=== PATIENT | male | born 1960 | race Caucasian/White ===

== ENCOUNTER → 2018-05-22 | Outpatient (CLI) | payer BC ==
--- NOTE | 2018-05-24 13:23 | PE ---
EXAMINATION TYPE: PET CT fusion skull to thigh DATE OF EXAM: 05/22/2018 COMPARISON: None Prior PET/CT: None HISTORY: R 91.8, solitary pulmonary nodule left lung TECHNIQUE: Following the intravenous administration of 13.3 mCi of F-18 FDG, whole body images are p erformed from the skull base to the midthigh. Images are reviewed on the computer in the coronal, ax ial, and sagittal planes. Reconstructed rotating images are created on independent workstation and r eviewed on the computer. A localization and attenuation correction CT is performed in conjunction w ith the PET scan. DLP: 387.22 mGycm SCAN: Initial Blood glucose: 106 mg/dL Average Mediastinum SUV: 1.37 Average Liver SUV: 1.80 FINDINGS: NECK: No abnormal uptake. THORAX: There is a focus of radiotracer accumulation in the left infrahilar region. This has an SUV v alue of 8.83 compatible with neoplasm. The soft tissue type density which extends from the left infrahilar region to the posterior lateral l eft lung base does not have elevated SUV values and may be related atelectasis. Small nodules identif ied at the right lung base do not have abnormal uptake and are in the range of 0.3-0.6 SUV values. ABDOMEN: No abnormal uptake PELVIS: There is a focus of radiotracer accumulation in the right iliac chain region adjacent to the psoas muscle. This is felt to be related to urinary tract. PET image 197 Solitary metastasis would be unusual. Some uptake more anterior appears to be related to the ileocecal valve. OSSEOUS STRUCTURES: No abnormal uptake LOCALIZATION CT: Ascending thoracic aorta at the level the main pulmonary artery is 3.5 cm. The main pulmonary artery the bifurcation is 2.9 cm. There is a left infrahilar mass just posterior to the rig ht atrium adjacent to the aorta. This area is estimated to measure 4.3 cm in diameter. There is exten shireen towards the left posterior base of increased density. There is a 0.7 cm nodular density in the p eriphery of the right lower lung field. Series 3 image 113. There is a 0.7 cm nodule in the periphery of the right lower lobe. Series 3 image 107. Coronary artery calcification is noted. There is a punc ross calcification along the right diaphragm may be within the superior right lobe liver. COMPARISON: Chest x-ray 05/12/2018 is reviewed. IMPRESSION: 1. Marked increased uptake within a retrocardiac infrahilar mass compatible with neoplasm. 2. Additional suspicious areas of uptake are not identified to suggest metastatic disease. 3. Scattered small pulmonary nodules which may be inflammatory or potentially below the threshold for detectability. Monitoring is recommended. 4. Probable radiotracer within the distal left ureter. Solitary metastatic lesion would be considered less likely. This could be monitored.
== END | disposition home or self-care (01) ==
LOC: RADPETMAIN 09:51
PROVIDERS: ATTEND Internal Medicine
DX: R91.8 Other nonspecific abnormal finding of lung field (principal)
CPT/HCPCS: 78815; A9552

== ENCOUNTER → 2018-05-27 | Outpatient (CLI) | payer BC ==
[2018-05-27 14:51] LABS: Basophils # (A) 0.1 k/uL (0-0.2); Basophils % (A) 1 %; Eosinophils # (A) 0.4 k/uL (0-0.7); Eosinophils % (A) 4 %; HCT 42.4 % (39.0-53.0); HGB 13.6 gm/dL (13.0-17.5); Lymphocytes # (A) 2.1 k/uL (1.0-4.8); Lymphocytes % (A) 19 %; MCH 30.2 pg (25.0-35.0); MCHC 32.2 g/dL (31.0-37.0); MCV 93.7 fL (80.0-100.0); Mean Platelet Volume 7.4; Monocytes # (A) 0.5 k/uL (0-1.0); Monocytes % (A) 4 %; Neutrophils # (A) 7.7 k/uL (1.3-7.7); Neutrophils % (A) 71 %; Platelet Count 331 k/uL (150-450); RBC 4.52 m/uL (4.30-5.90); RDW 13.4 % (11.5-15.5); WBC 10.8 k/uL (3.8-10.6)
[2018-05-27 15:02] LABS: INR 0.9 (<1.2); Prothrombin Time 10.2 sec (9.0-12.0)
[2018-05-27 15:03] LABS: Partial Thromboplastin Time 29.1 sec (22.0-30.0)
[2018-05-27 15:08] LABS: Anion Gap 11 mmol/L; Blood Urea Nitrogen 15 mg/dL (9-20); Carbon Dioxide 28 mmol/L (22-30); Chloride 104 mmol/L (98-107); Glucose 93 mg/dL (74-99); Potassium 4.8 mmol/L (3.5-5.1); Sodium 143 mmol/L (137-145)
== END | disposition home or self-care (01) ==
LOC: LABPAT 14:14
PROVIDERS: ATTEND Thoracic Surgery (Cardiothoracic Vascular Surgery)
DX: Z01.812 Encounter for preprocedural laboratory examination (principal); R91.8 Other nonspecific abnormal finding of lung field
CPT/HCPCS: 36415; 80051; 82565; 82947; 83735; 84520; 85025; 85610; 85730

== ENCOUNTER 2018-06-03 06:52 | Inpatient (IN) | payer BC ==
[~2018-06-03 06:52] MED LIST: DEXAMETHASONE SOD PHOSPHATE 10 MG/ML 1 ML VIAL IV ONE; HYDROmorphone 0.5 MG/0.5 ML SYRINGE IVP PRN; LACTATED RINGERS 1,000 ML IV SCH; MIDAZOLAM 2 MG/2 ML VIAL IV PRN; ONDANSETRON 4 MG/2 ML VIAL IVP ONE; SCOPOLAMINE 1.5MG/72HR PATCH TRANSDERM ONE; ceFAZolin IN SWFI 2 GM/20 ML SYRINGE IVP ONE
[2018-06-03] MEDS ORDERED: fentaNYL (PF) 50 MCG/ML 2 ML AMP IV ONE (08:06)
[2018-06-03] MEDS ORDERED: MIDAZOLAM 2 MG/2 ML VIAL IV ONE ×2 (08:06→08:37)
[2018-06-03] MEDS ORDERED: NALOXONE 0.4 MG/ML 1 ML VIAL IV PRN (08:29)
[2018-06-03] MEDS ORDERED: SODIUM CHLORIDE 0.9% 500 ML 500 ML IV ONE ×2 (08:45→12:45)
--- NOTE | 2018-06-03 08:45 | P.CON ---
Consult Note - . Consult date: 06/03/18 Assessment/Plan:: This is an addendum to the office consultation and subsequent H&P developed on this patient. It in the history of present illness it was documented that there was a left lower lobe mass abutting the inferior pulmonary vein. That is correct. In the summary stated it was a right lower lobe. This is incorrect. It is the left lower lobe. A left lower lobectomy's plan.
[2018-06-03] MEDS ORDERED: GLYCOPYRROLATE 0.2 MG/ML 2 ML VIAL ONE (09:05)
[2018-06-03] MEDS ORDERED: PROPOFOL 10 MG/ML 20 ML VIAL IV ONE (09:05)
[2018-06-03] MEDS ORDERED: VECURONIUM 10 MG VIAL IV ONE (09:05)
[2018-06-03] MEDS ORDERED: ALBUMIN HUMAN 5% (12.5gm) 250 ML BOTTLE IVPB ONE (09:05)
[2018-06-03] MEDS ORDERED: MIDAZOLAM 2 MG/2 ML VIAL ONE (09:05)
[2018-06-03] MEDS ORDERED: fentaNYL (PF) 50 MCG/ML 2 ML AMP ONE (09:05)
[2018-06-03] MEDS ORDERED: SUCCINYLCHOLINE CHLORIDE 100 MG/5 ML SYR IV ONE (09:05)
[2018-06-03] MEDS ORDERED: NEOSTIGMINE 1 MG/ML 10 ML VIAL ONE (09:05)
[2018-06-03] MEDS ORDERED: AMIODARONE 150 MG Bolus IV ONE ×2 (11:45)
[2018-06-03] MEDS ORDERED: AMIODARONE 360 MG in DEXTROSE 5% IN WATER 200 ML IV ONE ×2 (12:45)
--- NOTE | 2018-06-03 13:59 | P.OP ---
Date of Procedure: 06/03/18 Preoperative Diagnosis: Lung cancer left lower lobe of lung Postoperative Diagnosis: Same Procedure(s) Performed: Left thoracotomy, left lower lobectomy, mediastinal lymph node dissection, resection of left atrium at insertion of left inferior pulmonary vein, cryoablation of left intercostal nerves 3, 4, 5, 6, 7. Anesthesia: GETA Surgeon: Patrick Zuluaga Financial Administrative Assistant #1: Jayson Zuñiga Financial Administrative Assistant #2: Guille Yang Estimated Blood Loss (ml): 500 IV fluids (ml): 2,000 Urine output (ml): 500 Pathology: other (Left upper lobectomy with markers indicating areas of dissection from one descending thoracic aorta to esophagus 3 left superior pulmonary vein for left inferior pulmonary vein, left atrial resection labeled for proximal margin, lymph nodes from stations L5, L6, level7, L10, L11) Condition: stable Disposition: ICU Indications for Procedure: 58-year-old male who presents with a 4-1/2 cm large central tumor at the inferior pulmonary vein abutting and possibly invading the aorta and esophagus, exploration and resection was recommended Operative Findings: The tumor was large and fixed to the mediastinum centrally. Our initial dissection confirmed ability to resect the mass off both the aorta and the esophagus. There was a markedly inflammatory response in the hilum and dissection was very difficult. The hilar and mediastinal lymph nodes were enlarged and appeared to be granulomatous in gross appearance. Once we got to the pulmonary vein, the superior pulmonary vein was attached at its inferior portion to the tumor and the tumor did extend to the junction of the inferior pulmonary vein and the left atrium. Final margins all appeared negative grossly. Description of Procedure: The patient was brought to the operating room, placed supine on the operating table, anesthetized and intubated with a double-lumen endotracheal tube. Tube was positioned and secured with fiberoptic bronchoscopy. Patient had considerable endobronchial sputum however there were no evidence of endobronchial tumor. The tube was positioned and secured and patient turned in the right lateral decubitus position. Left chest sterilely prepped and draped. Posterior lateral thoracotomy incision was performed. This carried down through skin and subcutaneous tissue. The latissimus muscle was divided. The serratus muscle was mobilized and retracted anteriorly. The chest was entered in the fifth interspace. Intercostal muscles were undercut anteriorly and posteriorly to allow good rib spreading. Chest was explored with findings as noted above. We began dissection by being certain that the tumor was not invasive of the aorta. Mediastinal pleura where the tumor was stuck to the aorta was incised circumferentially and we were able to establish a good plane between the pleura and the aorta and free the tumor from the aorta. We then did the same for the esophagus after assuring we had a NG tube in place so we could easily palpate the esophagus. The inferior pulmonary ligament was taken down. As we approached the pericardium and the inferior pulmonary vein the tumor was stuck to the pericardium and we stopped here. The greater fissure was incomplete. We began dissection in the fissure and identified pulmonary artery at the base of the fissure. Fissure was completed posteriorly and dissection was carried along the pulmonary artery at the base of the fissure using electrocautery to divide the pulmonary tissue overlying the pulmonary artery. The branch the pulmonary artery leading to the superior segment of the left lower lobe was encircled and ligated and divided with a Endo CUATE thin stapler. Dissection was carried r further along the pulmonary artery. The branch leading to the lingula was identified. There were 2 large branches to the lower lobe one just proximal to this and one just distal. We first dissected out the distal branch and ligated it proximally and distally with 0 silk ties and 3-0 silk stick ties. The branch was then divided. We were now able to get a Endo CUATE vascular stapler around the remaining branch of the pulmonary artery leading to the lower lobe and ligated and divided. We now began dissection on the bronchus. The level VII nodes were resected. The level nodes were resected. Dissection was carried up along the mainstem bronchus to its bifurcation. We were able to encircle the lower lobe bronchus and get around it with a large right angle clamp. We then able to get across it with a Endo CUATE thick stapler and ligated and divided. All of the hilar lymph nodes were generally resected en bloc with the specimen although a few separate ones were sent. These were labeled as L 10 and L 11 lymph nodes. We now opened the pericardium in order to better visualize the inferior pulmonary vein. Superior pulmonary vein was visualized behind the bronchus. The tumor was stuck to the pericardium and portion of pericardium was resected circumferentially around the inferior pulmonary vein Dissection was carried along the superior pulmonary vein down to its junction with the inferior pulmonary vein. It became evident that was going to be challenging to resect the inferior pulmonary vein without compromising the superior pulmonary vein. We began by placing a vascular Endo CUATE stapler across the inferior pulmonary vein including a small amount of the superior pulmonary vein and firing it. His allowed us get the specimen out of the way. Grossly we were right on the margin of the tumor and we wanted a better margin. We could now place a Satinsky clamp across the inferior pulmonary vein and down onto the left atrium including a small portion of the superior pulmonary vein. Should then resect the staple line and get a much deeper margin. This allowed us to do this without compromising the inflow from the superior pulmonary vein. Once we had resected the staple line and a small portion of the left atrium, we felt we had an good gross margin and a running suture was passed back and forth beneath the clamp. Being very careful to put good tension on the suture the clamp was gradually removed and good hemostasis was maintained. The suture was tied and cut. We now resected some further L6 lymph nodes as well as L5 lymph nodes and didn't careful look for any level VIII or 10 lymph nodes which were not encountered. The chest was irrigated with warm water and the lung inflated and no air leaks were noted. Cryoablation of the intercostal nerves posteriorly at levels 3, 4, 5, 6 and 7 was performed with the AtriCure cryo-ice device. The lung was then again reinflated. A 28-Czech tube was placed posterior apically and brought out through a separate stab incision and secured to the skin with 0 Ethibond suture. The ribs were now reapproximated with #1 Vicryl. The muscle layers were closed with 0 Vicryl. Subcutaneous tissue was closed with 2-0 Vicryl. Skin was closed with a running 3-0 Vicryl subcuticular stitch. Skin glue and dry sterile dressings were applied. Patient was turned supine and extubated and transferred to recovery room in stable condition. Dr. Patrick Zuluaga dictating an operative note Alan Aldana. Please forward copy Dr. Klein.
[2018-06-03] MEDS ORDERED: BISACODYL 10 MG SUPP RECTAL PRN (14:04)
[2018-06-03] MEDS ORDERED: DEXTROSE 5%-0.45% NACL 1,000 ML IV SCH (14:04)
[2018-06-03] MEDS ORDERED: METOCLOPRAMIDE 5 MG/ML 2 ML VIAL IVP PRN (14:04)
[2018-06-03] MEDS ORDERED: ONDANSETRON 4 MG/2 ML VIAL IVP PRN (14:04)
[2018-06-03] MEDS ORDERED: IPRATROPIUM-ALBUTEROL 3 ML NEB IH PRN (14:04)
[2018-06-03] MEDS: ROPIVACAINE 400 MG, HYDROMORPHONE (PF) 5 MG in SODIUM CHLORIDE 0.9% 170 ML EPIDURAL PRN (14:08)
[2018-06-03 14:17] LABS: Glucose,Whole Blood 200 mg/dL (75-99)
--- NOTE | 2018-06-03 14:49 | XR ---
EXAMINATION TYPE: XR chest 1V DATE OF EXAM: 06/03/2018 HISTORY: Postoperative left lower lobectomy COMPARISON: 05/12/2018 TECHNIQUE: Single view of the chest is submitted. FINDINGS: Left-sided chest tube is noted in place with the its distal tip within the left upper lobe region. Th ere is subcutaneous air seen along the left chest wall. No sizable pneumothorax present. The right shaun ng is clear. The heart is stable. Hilar and mediastinal structures are within normal limits. Degenerative changes are seen of the dorsal spine. IMPRESSION: 1. Postoperative left lower lobectomy changes.
[2018-06-03] MEDS: ACETAMINOPHEN IV (For NPO) 1,000 MG in EMPTY BAG 1 BAG IVPB SCH (15:25)
[2018-06-03] MEDS: ceFAZolin IN SWFI 2 GM/20 ML SYRINGE IVP SCH (15:25)
--- NOTE | 2018-06-03 15:31 | P.CNPUL ---
History of Present Illness Consult date: 06/03/18 Reason for consult: lung mass History of present illness: This is a 57-year-old white male who was recently seen by his primary care physician for chronic cough, some vague aches and pains in the thoracic spine. CT of the chest showed a left infrahilar mass abutting the cardiac atrium, the mass is 3.6 cm in size. . Patient describes about 15 pound weight loss over the last 2 years, describes chronic cough which is nonproductive, denies any hemoptysis, denies any chest pain, but he does have pain over the thoracic spine which is chronic. At least 3 months in duration. Patient has been a smoker over the years, he is at least a [id number] smoker, and he is now to 10 cigarettes per day. He has a preserved lung capacity with an FEV1 of 75% of predicted. He underwent a PET scan that was done on 05/22/2018 and the PET scan showed marked increased uptake in the infrahilar mass compatible with neoplasm. The patient has a left infrahilar mass which is estimated to be around 4.3 cm in diameter. There is another 7 mm nodular density in the periphery of the right lower lung leahy. This is probably inflammatory in nature. The mass is quite large and is invading the mediastinum, abutting the descending aorta and the posterior heart border and causing problems some mass effect on the esophagus. No reported dysphagia or swallowing difficulties. The patient is having dull aching pain in the left posterior chest area. I referred this patient for CV surgery in consultation for a left lower lobe resection. I was concerned that this is a T4 lesion. I had further discussions with Dr. Zuluaga. Based on discussion, we decided to undergo lobectomy at least give this patient a surgical chance. The surgery was done today. The patient underwent a left thoracotomy, left lower lobectomy, mediastinal lymph node dissection, resection of the left atrium at the insertion of the left inferior pulmonary vein and cryoablation of the left intercostal nerve 3,4,5,6,7.. The estimated blood loss was 500 mL. The patient following that there was brought into the intensive care unit. He was already extubated. The patient had epidural Dilaudid and bupivacaine for pain control. He is on 10 L of oxygen nasal cannula. Pulse ox 95%. Chest x-ray showing left lower lobectomy changes. The patient is a left-sided chest tube in place and there is no evidence of any air leak or pneumothorax. The patient is hemodynamically stable at this point in time. He is on DuoNeb nebulized treatments around the clock. He is on IV antibiotic prophylaxis. He is on heparin subcu for DVT prophylaxis. Review of Systems Comprehensive General Adult ROS Reported by Patient Constitutional Constitutional: no fever, no night sweats, no significant weight gain, no exercise intolerance, weight loss (5 lbs) Eyes Eyes: no dry eyes, no vision change, no irritation ENMT Ears: no difficulty hearing, no ear pain Nose: no frequent nosebleeds, no nose problems, no sinus problems Mouth/Throat: no sore throat, no bleeding gums, no snoring, no dry mouth, no mouth ulcers, no oral abnormalities, no teeth problems Cardiovascular Cardiovascular: no chest pain, no arm pain on exertion, no shortness of breath when lying down, no palpitations, no known heart murmur, shortness of breath when walking Respiratory Respiratory: no cough, no wheezing, no shortness of breath, no coughing up blood , no sleep apnea (chest pain) Gastrointestinal Gastrointestinal: no abdominal pain, no nausea, no vomiting, no constipation, normal appetite, no diarrhea, not vomiting blood, no dyspepsia, no GERD Genitourinary Genitourinary: no incontinence, no difficulty urinating, no hematuria, no increased frequency Musculoskeletal Musculoskeletal: no muscle aches, no muscle weakness, no arthralgias/joint pain , no back pain, no swelling in the extremities Integumentary Skin: no abnormal mole, no jaundice, no rashes, no laceration Neurologic Neurologic: no loss of consciousness, no weakness, no numbness, no seizures, no dizziness, no migraines, no headaches, no tremor Psychiatric Psych: no depression, no sleep disturbances, feeling safe in a relationship, no alcohol abuse, no anxiety, no hallucinations, no suicidal thoughts Endocrine Endocrine: no fatigue Hematologic/Lymphatic Hematologic/Lymphatic no swollen glands, no bruising, no excessive bleeding Allergic/Immunologic Allergy/Immunologic: no runny nose, no sinus pressure, no itching, no hives, no frequent sneezing Past Medical History Past Medical History: Hyperlipidemia Additional Past Medical History / Comment(s): Lung mass, COPD, abnormal weight loss, hypertension, hyperlipidemia History of Any Multi-Drug Resistant Organisms: None Reported Past Surgical History: No Surgical Hx Reported Additional Past Surgical History / Comment(s): wisdom teeth Past Anesthesia/Blood Transfusion Reactions: No Reported Reaction Smoking Status: Current some day smoker - Past Family History Mother Family Medical History: Cancer Additional Family Medical History / Comment(s): appendix cancer Medications and Allergies Home Medications Medication Instructions Recorded Confirmed Type Atorvastatin [Lipitor] 10 mg PO DAILY 05/27/18 06/03/18 History Ibuprofen [Advil] 200 mg PO DAILY PRN 05/27/18 06/03/18 History [place] (Unknown Dose) 1 tab PO DAILY PRN 05/31/18 06/03/18 History Allergies Allergy/AdvReac Type Severity Reaction Status Date / Time No Known Allergies Allergy Verified 06/03/18 14:29 Physical Exam Vitals: Vital Signs Temp Pulse Pulse Resp BP BP BP 06/03/18 15:00 66 24 150/84 06/03/18 14:30 63 18 146/87 06/03/18 14:20 65 22 146/87 06/03/18 14:10 63 12 06/03/18 14:03 97.7 F 62 21 06/03/18 09:00 16 06/03/18 08:29 76 16 109/64 06/03/18 07:28 98.3 F 85 16 173/81 Pulse Ox 06/03/18 15:00 95 06/03/18 14:30 99 06/03/18 14:20 99 06/03/18 14:10 99 06/03/18 14:03 98 06/03/18 09:00 99 06/03/18 08:29 99 06/03/18 07:28 95 Intake and Output 06/03/18 06/03/18 06/03/18 06:59 14:59 22:59 Intake Total 742.267 Output Total 790 Balance -47.733 Intake: IV 740 Dextrose 5%-0.45% NaCl 1, 40 000 ml @ 40 mls/hr IV . Q24H [facility] Rx#:[id number] Intake, IV Titration 2.267 Amount Ropivacaine 400 mg 2.267 Hydromorphone (Pf) 5 mg In Sodium Chloride 0.9% 170 ml @ Per Protocol EPIDURAL .Q0M PRN Rx#: [id number] Output: Chest Tube Drainage 40 Left Pleural 40 Urine 250 Estimated Blood Loss 500 Other: Voiding Method Indwelling Catheter ABP, PAP, CO, CI - Last 8 Hours Arterial Blood Pressure 166/66 Arterial Blood Pressure 151/69 Arterial Blood Pressure 127/57 Patient is laying down comfortably in bed. Nonacute distress.Head exam was generally normal. There was no scleral icterus or corneal arcus. Mucous membranes were moist.Neck was supple and without jugular venous distension, thyromegaly, or carotid bruits. Carotids were easily palpable bilaterally. There was no adenopathy. Lung sounds are diminished in left lung base and the patient is a left-sided chest tube. Surgical wound site is dry clean and intact.Cardiac exam revealed the PMI to be normally situated and sized. The rhythm was regular and no extrasystoles were noted during several minutes of auscultation. The first and second heart sounds were normal and physiologic splitting of the second heart sound was noted. There were no murmurs, rubs, clicks, or gallops.Abdominal exam revealed normal bowel sounds. The abdomen was soft, non-tender, and without masses, organomegaly, or appreciable enlargement of the abdominal aorta.Examination of the extremities revealed easily palpable radial, femoral and pedal pulses. There was no cyanosis, clubbing or edema.Examination of the skin revealed no evidence of significant rashes, suspicious appearing nevi or other concerning lesions. Neurologically awake and alert and there is no focal neurological deficits. Psychiatrically there is no anxiety or depression.Examination of the skin revealed no evidence of significant rashes, suspicious appearing nevi or other concerning lesions. Results - Laboratory Findings Abnormal lab findings: Abnormal Labs 06/03/18 14:06 POC Glucose (mg/dL) 200 H - Diagnostic Findings Chest x-ray: image reviewed Assessment and Plan Plan: Assessment 1 left thoracotomy, left lower lobe resection, resection of the left atrium at the insertion of left inferior pulmonary vein. The patient is postop day #0. Estimated blood loss was 500 mL 2 left lung mass, likely malignant, likely primary bronchogenic cancer 3 COPD mild currently inactive in stable 4 post thoracotomy pain currently on the Dulera bupivacaine and lotted for pain control 5 history of smoking 6 weight loss 7 hypertension 8 hyperlipidemia Plan Provide the patient incentive spirometer. Provide the patient adequate pain control. He is hemodynamically stable. Chest tube is in place and output is minimal at this point in time. Postop chest x-ray was noted and is consistent with postsurgical changes. The patient has adequate pain control. The patient is on heparin subcu for DVT prophylaxis. We'll continue to follow. He'll be kept in ICU overnight
[2018-06-03] MEDS: HEPARIN SODIUM,PORCINE 5,000 UNIT/ML 1 ML VIAL SQ SCH (15:33)
[2018-06-03 16:26] LABS: Basophils % (A) 0 %; Eosinophils # (A) 0.2 k/uL (0-0.7); Eosinophils % (A) 1 %; HGB 11.6 gm/dL (13.0-17.5); Lymphocytes # (A) 0.9 k/uL (1.0-4.8); Lymphocytes % (A) 6 %; MCHC 33.2 g/dL (31.0-37.0); MCV 93.4 fL (80.0-100.0); Mean Platelet Volume 7.1; Monocytes # (A) 0.6 k/uL (0-1.0); Monocytes % (A) 3 %; Neutrophils # (A) 14.5 k/uL (1.3-7.7); Neutrophils % (A) 90 %; Platelet Count 293 k/uL (150-450); RBC 3.75 m/uL (4.30-5.90); RDW 13.4 % (11.5-15.5); WBC 16.2 k/uL (3.8-10.6)
[2018-06-03] MEDS: IPRATROPIUM-ALBUTEROL 3 ML NEB IH SCH ×2 (16:35→19:46)
[2018-06-03 16:36] LABS: Anion Gap 11 mmol/L; Blood Urea Nitrogen 18 mg/dL (9-20); Calcium 9.1 mg/dL (8.4-10.2); Carbon Dioxide 26 mmol/L (22-30); Chloride 100 mmol/L (98-107); Glucose 187 mg/dL (74-99); Potassium 4.4 mmol/L (3.5-5.1); Sodium 137 mmol/L (137-145)
[2018-06-03] MEDS ORDERED: hydrALAZINE HCL 20 MG/ML 1 ML VIAL IVP PRN (17:47)
[2018-06-03] MEDS: KETOROLAC 30 MG/ML 1 ML VIAL IVP SCH ×2 (17:49→23:41)
[2018-06-03] MEDS ORDERED: HYDROmorphone 0.5 MG/0.5 ML SYRINGE IVP STA ×2 (18:06→21:01)
[2018-06-04] MEDS: ACETAMINOPHEN IV (For NPO) 1,000 MG in EMPTY BAG 1 BAG IVPB SCH ×3 (00:49→11:31)
[2018-06-04] MEDS: ceFAZolin IN SWFI 2 GM/20 ML SYRINGE IVP SCH (00:50)
[2018-06-04] MEDS: HEPARIN SODIUM,PORCINE 5,000 UNIT/ML 1 ML VIAL SQ SCH ×3 (00:58→18:20)
[2018-06-04 04:30] LABS: Basophils % (A) 0 %; Eosinophils # (A) 0.3 k/uL (0-0.7); Eosinophils % (A) 2 %; HCT 36.5 % (39.0-53.0); HGB 12.2 gm/dL (13.0-17.5); Lymphocytes # (A) 1.7 k/uL (1.0-4.8); Lymphocytes % (A) 10 %; MCH 31.1 pg (25.0-35.0); MCHC 33.5 g/dL (31.0-37.0); Monocytes # (A) 0.8 k/uL (0-1.0); Monocytes % (A) 4 %; Neutrophils % (A) 83 %; Platelet Count 313 k/uL (150-450); RBC 3.92 m/uL (4.30-5.90); RDW 13.5 % (11.5-15.5)
[2018-06-04 04:52] LABS: Anion Gap 8 mmol/L; Blood Urea Nitrogen 20 mg/dL (9-20); Carbon Dioxide 28 mmol/L (22-30); Chloride 100 mmol/L (98-107); Glucose 134 mg/dL (74-99); Potassium 4.6 mmol/L (3.5-5.1); Sodium 136 mmol/L (137-145)
[2018-06-04] MEDS: KETOROLAC 30 MG/ML 1 ML VIAL IVP SCH ×3 (06:34→18:20)
[2018-06-04] MEDS: METOPROLOL TARTRATE 25 MG TAB PO SCH ×2 (06:56→21:16)
[2018-06-04] MEDS: ATORVASTATIN 10 MG TAB PO SCH (06:56)
[2018-06-04] MEDS: IPRATROPIUM-ALBUTEROL 3 ML NEB IH SCH ×4 (07:59→20:04)
--- NOTE | 2018-06-04 09:52 | XR ---
EXAMINATION TYPE: XR chest 1V DATE OF EXAM: 06/04/2018 COMPARISON: 06/03/2018 HISTORY: Post left lower lobe lobectomy TECHNIQUE: Single frontal view of the chest is obtained. FINDINGS: Left-sided chest tube is noted in place with the its distal tip within the left upper lobe region. There is subcutaneous air seen along the left chest wall. No sizable pneumothorax present. T he right lung is clear. The heart is stable. There is bilateral lower lobe subsegmental consolidation . And mediastinal structures are within normal limits. Degenerative changes are seen of the dorsal sp ine. IMPRESSION: 1. Postoperative changes with subcutaneous emphysema on the left but no sizable pneumothorax. 2. Bilateral lower lobe consolidation may been the basis of postoperative atelectasis correlate clini dayday to exclude infiltrate.
--- NOTE | 2018-06-04 10:19 | P.PN ---
Subjective Progress Note Date: 06/04/18 Principal diagnosis: Left thoracotomy, left lower lobe resection, resection of the left atrium, left lung mass likely malignant, postop day 1 This is a 57-year-old white male who was recently seen by his primary care physician for chronic cough, some vague aches and pains in the thoracic spine. CT of the chest showed a left infrahilar mass abutting the cardiac atrium, the mass is 3.6 cm in size. . Patient describes about 15 pound weight loss over the last 2 years, describes chronic cough which is nonproductive, denies any hemoptysis, denies any chest pain, but he does have pain over the thoracic spine which is chronic. At least 3 months in duration. Patient has been a smoker over the years, he is at least a [id number] smoker, and he is now to 10 cigarettes per day. He has a preserved lung capacity with an FEV1 of 75% of predicted. He underwent a PET scan that was done on 05/22/2018 and the PET scan showed marked increased uptake in the infrahilar mass compatible with neoplasm. The patient has a left infrahilar mass which is estimated to be around 4.3 cm in diameter. There is another 7 mm nodular density in the periphery of the right lower lung leahy. This is probably inflammatory in nature. The mass is quite large and is invading the mediastinum, abutting the descending aorta and the posterior heart border and causing problems some mass effect on the esophagus. No reported dysphagia or swallowing difficulties. The patient is having dull aching pain in the left posterior chest area. I referred this patient for CV surgery in consultation for a left lower lobe resection. I was concerned that this is a T4 lesion. I had further discussions with Dr. Zuluaga. Based on discussion, we decided to undergo lobectomy at least give this patient a surgical chance. The surgery was done today. The patient underwent a left thoracotomy, left lower lobectomy, mediastinal lymph node dissection, resection of the left atrium at the insertion of the left inferior pulmonary vein and cryoablation of the left intercostal nerve 3,4,5,6,7.. The estimated blood loss was 500 mL. The patient following that there was brought into the intensive care unit. He was already extubated. The patient had epidural Dilaudid and bupivacaine for pain control. He is on 10 L of oxygen nasal cannula. Pulse ox 95%. Chest x-ray showing left lower lobectomy changes. The patient is a left-sided chest tube in place and there is no evidence of any air leak or pneumothorax. The patient is hemodynamically stable at this point in time. He is on DuoNeb nebulized treatments around the clock. He is on IV antibiotic prophylaxis. He is on heparin subcu for DVT prophylaxis. On 06/04/2018 patient seen in follow-up in intensive care unit, he is awake and alert, oriented 3, in no acute distress, this is postop day 1 status post left thoracotomy, left lower lobe mass resection, left atrium resection at the level of the insertion of the left pulmonary artery. She has a left-sided chest tube in place, to waterseal, no air leak noted, and there is a total of 430 of serosanguineous output in the Pleur-evac. Drainage from the chest tube is thin and watery, continues to smoke morning. Lung sounds are positive for scattered rhonchi at the left lower lobe, and has effective cough, he is producing moderate to large amount of thick yellow sputum. Incentive spirometer effort is 750 ML today. His chest x-ray has been reviewed with Dr. Klein, showed postoperative changes with subcutaneous emphysema on the left but no sizable pneumothorax, bilateral postoperative atelectasis. Biopsy results are still pending. Today's lab work has been reviewed, white blood cell count of 17.0, hemoglobin is 12.2, sodium is 136, the rest of electrolytes are within normal limits, B1 is 20 and creatinine 0.60. Fluids D5 at a rate of 40 ML per hour, this rhythm on the monitor with a rate of 67, hemodynamic patient is stable. Bupivacaine and Dilaudid at a rate of 10 ML per hour Objective - Vital Signs Vital signs: Vital Signs Temp 97.9 F 06/04/18 04:00 Pulse 70 06/04/18 08:07 Resp 24 06/04/18 07:00 BP 153/90 06/04/18 07:00 Pulse Ox 95 06/04/18 07:00 Intake & Output 06/03/18 06/04/18 06/04/18 18:59 06:59 18:59 Intake Total 924.934 480 40 Output Total 1090 647 35 Balance -165.066 -167 5 Weight 63 kg Intake: IV 900 480 40 Dextrose 5%-0.45% NaCl 1, 200 480 40 000 ml @ 40 mls/hr IV . Q24H [facility] Rx#:[id number] Intake, IV Titration 24.934 Amount Ropivacaine 400 mg 24.934 Hydromorphone (Pf) 5 mg In Sodium Chloride 0.9% 170 ml @ Per Protocol EPIDURAL .Q0M PRN Rx#: [id number] Output: Chest Tube Drainage 140 290 Left Pleural 140 290 Urine 450 357 35 Estimated Blood Loss 500 Other: Voiding Method Indwelling Catheter Indwelling Catheter ABP, PAP, CO, CI - Last Documented Arterial Blood Pressure 162/70 - Exam GENERAL EXAM: Alert, active, comfortable in no apparent distress. HEAD: Normocephalic/atraumatic. EYES: Normal reaction of pupils, equal size. Conjunctiva pink, sclera white. NOSE: Clear with pink turbinates. THROAT: No erythema or exudates. NECK: No masses, no JVD, no thyroid enlargement, no adenopathy. CHEST: No chest wall deformity. Symmetrical expansion. LUNGS: Equal air entry with left basilar rhonchi CVS: Regular rate and rhythm, normal S1 and S2, no gallops, no murmurs, no rubs ABDOMEN: Soft, nontender. No hepatosplenomegaly, normal bowel sounds, no guarding or rigidity. EXTREMITIES: No clubbing, no edema, no cyanosis, 2+ pulses and upper and lower extremities. MUSCULOSKELETAL: Muscle strength and tone normal. SPINE: No scoliosis or deformity SKIN: No rashes CENTRAL NERVOUS SYSTEM: Alert and oriented -3. No focal deficits, tone is normal in all 4 extremities. PSYCHIATRIC: Alert and oriented -3. Appropriate affect. Intact judgment and insight. - Labs CBC & Chem 7: 06/04/18 04:20 06/04/18 04:20 Labs: Abnormal Lab Results - Last 24 Hours (Table) 06/03/18 06/03/18 06/03/18 Range/Units 14:06 16:15 16:15 WBC 16.2 H (3.8-10.6) k/uL RBC 3.75 L (4.30-5.90) m/uL Hgb 11.6 L (13.0-17.5) gm/dL Hct 35.0 L (39.0-53.0) % Neutrophils # 14.5 H (1.3-7.7) k/uL Lymphocytes # 0.9 L (1.0-4.8) k/uL Sodium (137-145) mmol/L Creatinine 0.60 L (0.66-1.25) mg/dL Glucose 187 H (74-99) mg/dL POC Glucose (mg/dL) 200 H (75-99) mg/dL 06/04/18 06/04/18 Range/Units 04:20 04:20 WBC 17.0 H (3.8-10.6) k/uL RBC 3.92 L (4.30-5.90) m/uL Hgb 12.2 L (13.0-17.5) gm/dL Hct 36.5 L (39.0-53.0) % Neutrophils # 14.0 H (1.3-7.7) k/uL Lymphocytes # (1.0-4.8) k/uL Sodium 136 L (137-145) mmol/L Creatinine 0.60 L (0.66-1.25) mg/dL Glucose 134 H (74-99) mg/dL POC Glucose (mg/dL) (75-99) mg/dL Assessment and Plan Plan: 1 left thoracotomy, left lower lobe resection, resection of the left atrium at the insertion of left inferior pulmonary vein. The patient is postop day #1. Estimated blood loss was 750 mL 2 left lung mass, likely malignant, likely primary bronchogenic cancer 3 COPD mild currently inactive in stable 4 post thoracotomy pain currently on the Dulera bupivacaine and lotted for pain control 5 history of smoking 6 weight loss 7 hypertension 8 hyperlipidemia Plan: Continue encouraging deep breathing and coughing, patient's hemodynamically stable, is quite comfortable in regards to pain. Chest x-ray has been reviewed by Dr. Klein, showed postoperative changes with subcutaneous emphysema on the left, bibasilar atelectasis, but no sizable pneumothorax. Encourage ambulation, continue nebulized bronchodilators, sputum for culture. we'll continue to follow I performed a history & physical examination of the patient and discussed their management with my nurse practitioner, Wendy Salamanca. I reviewed the nurse practitioner's note and agree with the documented findings and plan of care. Lung sounds are positive for basilar rhonchi. The findings and the impression was discussed with the patient. I attest to the documentation by the nurse practitioner. Time with Patient: Less than 30
[2018-06-04] MEDS: ROPIVACAINE 400 MG, HYDROMORPHONE (PF) 5 MG in SODIUM CHLORIDE 0.9% 170 ML EPIDURAL PRN (11:16)
[2018-06-04] MEDS: PANTOPRAZOLE 40 MG TABLET PO SCH (11:34)
--- NOTE | 2018-06-04 15:13 | P.PN ---
Subjective Progress Note Date: 06/04/18 Principal diagnosis: Lung cancer left lower lobe lung. No previous medical history except current tobacco dependence with [id number] smoking history and moderate obstructive lung disease, chronic cough and 15 pound weight loss over the previous 2 years. Family history of cancer and myocardial infarction POD #1 left thoracotomy, left lower lobectomy, mediastinal lymph node dissection , resection of left atrium at the insertion of the left inferior pulmonary vein , cryoablation of the left intercostal nerves III, 4, 5, 6, 7 The patient sitting up in a recliner in no acute distress. States pain is well- controlled with epidural. Denies shortness of breath. Patient has ambulated in the hallway without difficulty. Objective - Vital Signs Vital signs: Vital Signs Temp 97.6 F 06/04/18 12:00 Pulse 84 06/04/18 14:00 Resp 16 06/04/18 14:00 BP 115/76 06/04/18 14:00 Pulse Ox 94 L 06/04/18 14:00 Intake & Output 06/03/18 06/04/18 06/04/18 18:59 06:59 18:59 Intake Total 924.934 480 474.167 Output Total 1090 647 300 Balance -165.066 -167 174.167 Weight 63 kg Intake: IV 900 480 300 Dextrose 5%-0.45% NaCl 1, 200 480 300 000 ml @ 40 mls/hr IV . Q24H [facility] Rx#:[id number] Intake, IV Titration 24.934 174.167 Amount Ropivacaine 400 mg 24.934 174.167 Hydromorphone (Pf) 5 mg In Sodium Chloride 0.9% 170 ml @ Per Protocol EPIDURAL .Q0M PRN Rx#: [id number] Output: Chest Tube Drainage 140 290 50 Left Pleural 140 290 50 Urine 450 357 250 Estimated Blood Loss 500 Other: Voiding Method Indwelling Catheter Indwelling Catheter Indwelling Catheter ABP, PAP, CO, CI - Last Documented Arterial Blood Pressure 130/63 - Constitutional General appearance: Present: cooperative, no acute distress - Respiratory Details: Lungs sounds diminished bilaterally. Respirations even, nonlabored. Currently on 3 L nasal cannula with oxygen saturation 96%. Able to achieve 1012 50 mL on his incentive spirometry. Strong cough. Left pleural chest tube to continuous wall suction this morning, currently on waterseal. 240 mL serous drainage overnight, 500 mL since surgery, positive air leak. - Cardiovascular Details: S1, S2 present. Regular rate and rhythm, sinus rhythm on telemetry. Palpable peripheral pulses bilaterally. No edema present. No calf pain or tenderness noted. SCDs present. - Gastrointestinal Gastrointestinal Comment(s): Abdomen soft, nontender, nondistended. Active bowel sounds present 4 quadrants. Tolerating diet. - Genitourinary Genitourinary Comment(s): Myrick present draining clear, yellow urine. Output 30 mL/h overnight. - Integumentary Integumentary Comment(s): Skin is warm and dry with evidence of good perfusion. Left lateral chest wall incision well approximated and covered with dry intact dressing. - Neurologic Neurologic: Present: CNII-XII intact - Musculoskeletal Musculoskeletal: Present: gait normal, strength equal bilaterally - Psychiatric Psychiatric: Present: A&O x's 3, appropriate affect, intact judgment & insight - Allied health notes Allied health notes reviewed: nursing - Labs CBC & Chem 7: 06/04/18 04:20 06/04/18 04:20 Labs: Abnormal Lab Results - Last 24 Hours (Table) 06/03/18 06/03/18 06/04/18 Range/Units 16:15 16:15 04:20 WBC 16.2 H 17.0 H (3.8-10.6) k/uL RBC 3.75 L 3.92 L (4.30-5.90) m/uL Hgb 11.6 L 12.2 L (13.0-17.5) gm/dL Hct 35.0 L 36.5 L (39.0-53.0) % Neutrophils # 14.5 H 14.0 H (1.3-7.7) k/uL Lymphocytes # 0.9 L (1.0-4.8) k/uL Sodium (137-145) mmol/L Creatinine 0.60 L (0.66-1.25) mg/dL Glucose 187 H (74-99) mg/dL 06/04/18 Range/Units 04:20 WBC (3.8-10.6) k/uL RBC (4.30-5.90) m/uL Hgb (13.0-17.5) gm/dL Hct (39.0-53.0) % Neutrophils # (1.3-7.7) k/uL Lymphocytes # (1.0-4.8) k/uL Sodium 136 L (137-145) mmol/L Creatinine 0.60 L (0.66-1.25) mg/dL Glucose 134 H (74-99) mg/dL - Imaging and Cardiology Chest x-ray: report reviewed, image reviewed Assessment and Plan Assessment: 1. Lung cancer left lower lobe 2. Current tobacco dependence with [id number] smoking history 3. Moderate obstructive lung disease 4. Chronic cough and 15 pound weight loss over the previous 2 years 5. Family history of cancer Plan: 1. Left pleural chest tube was placed to waterseal this morning. We will continue to monitor outputs and resolution of air leak. 2. Pathology pending, will follow. 3. Wean O2 as tolerated. Encourage incentive spirometry 10 times every hour while awake. 4. Pain control with current medication regimen. Continue epidural per anesthesia. Continue Myrick as long is epidural is present. 5. GI prophylaxis with Protonix, DVT prophylaxis with subcu heparin, SCDs. 6. Will monitor daily x-rays. 7. Bronchodilators per pulmonology. 8. Continue home medications. 9. Encourage smoking cessation. 10. More recommendations to follow. Time with Patient: Greater than 30
[2018-06-05] MEDS: HEPARIN SODIUM,PORCINE 5,000 UNIT/ML 1 ML VIAL SQ SCH ×3 (00:03→18:22)
[2018-06-05] MEDS: KETOROLAC 30 MG/ML 1 ML VIAL IVP SCH ×4 (00:03→18:20)
[2018-06-05 05:18] LABS: HCT 32.4 % (39.0-53.0); MCH 31.5 pg (25.0-35.0); MCV 92.7 fL (80.0-100.0); Mean Platelet Volume 7.4; Platelet Count 252 k/uL (150-450); RBC 3.49 m/uL (4.30-5.90); RDW 13.4 % (11.5-15.5); WBC 11.5 k/uL (3.8-10.6)
[2018-06-05 05:29] LABS: Anion Gap 7 mmol/L; Blood Urea Nitrogen 20 mg/dL (9-20); Calcium 8.6 mg/dL (8.4-10.2); Carbon Dioxide 27 mmol/L (22-30); Chloride 99 mmol/L (98-107); Glucose 105 mg/dL (74-99); Potassium 4.5 mmol/L (3.5-5.1); Sodium 133 mmol/L (137-145)
--- NOTE | 2018-06-05 08:02 | XR ---
EXAMINATION TYPE: XR chest 2V DATE OF EXAM: 06/05/2018 COMPARISON: 06/04/2017 TECHNIQUE: PA and lateral views submitted. HISTORY: Postsurgical FINDINGS: Diffuse left-sided subcutaneous emphysema is noted and there is a tiny pneumothorax measuring less th an 5%. Chest tube noted. Left lower lobe consolidation and small effusion. Subsegmental changes at th e right lung base. Heart size stable. IMPRESSION: 1. Stable postsurgical changes with a tiny less than 5% left apical pneumothorax, subcutaneous emphys salome and left lower lobe consolidation and small effusion. 2. There is no right lower lobe subsegmental atelectasis or infiltrate. 3. Lateral view suggest a small amount of pneumomediastinum.
[2018-06-05] MEDS: IPRATROPIUM-ALBUTEROL 3 ML NEB IH SCH ×4 (08:12→19:36)
[2018-06-05] MEDS: PANTOPRAZOLE 40 MG TABLET PO SCH (08:24)
[2018-06-05] MEDS: ATORVASTATIN 10 MG TAB PO SCH (08:58)
[2018-06-05] MEDS: METOPROLOL TARTRATE 25 MG TAB PO SCH ×2 (08:58→20:11)
--- NOTE | 2018-06-05 09:04 | P.PN ---
Progress Note - Text Progress Note Date: 06/05/18 Epidural rounds Postop day 2 from the left thoracotomy. Patient has an epidural in place running at 10 mL an hour. Pain is well controlled. Patient has not required any when necessary pain medications. He is able to ambulate has been sitting up in the chair. Chest tube is still in place. Patient is able to cough with minimal pain. Epidural site is clean there is minimal amount of puffiness but there is no erythema or fluctuance noted. We will continue epidural catheter for 1 more day. We'll discontinue the epidural catheter tomorrow morning. Discontinue epidural catheter on June 06 after subq heparin has been held for at least 6 hours. Do not give subsequent dose for at least 4 more hours after the epidural catheter removal.
[2018-06-05 10:45] VITALS: BMI 18.3
[2018-06-05] MEDS: ROPIVACAINE 400 MG, HYDROMORPHONE (PF) 5 MG in SODIUM CHLORIDE 0.9% 170 ML EPIDURAL PRN (11:38)
--- NOTE | 2018-06-05 11:44 | P.PN ---
Subjective Progress Note Date: 06/05/18 Principal diagnosis: Lung cancer left lower lobe lung. No previous medical history except hyperlipidemia, current tobacco dependence with [id number] smoking history and moderate obstructive lung disease, chronic cough and 15 pound weight loss over the previous 2 years. Family history of cancer and myocardial infarction POD #2 left thoracotomy, left lower lobectomy, mediastinal lymph node dissection, resection of left atrium at the insertion of the left inferior pulmonary vein, cryoablation of the left intercostal nerves 3, 4, 5, 6, 7 Patient is sitting up to the bedside chair. He is in no acute distress. Currently rates his pain 2 out of 10 on the pain scale 2 his left chest tube insertion site. Denies any complaints of shortness of breath. He remains hemodynamically stable. Epidural remains in contact and infusing at 10 mL per hour. The patient reports he ambulated in the intensive care unit already 3 times yesterday with minimal assistance. He is achieving 1000 mL on his incentive spirometry. Subcutaneous emphysema to his left chest. He remains af ebrile. Objective - Vital Signs Vital signs: Vital Signs Temp 97.9 F 06/05/18 05:00 Pulse 86 06/05/18 08:23 Resp 25 H 06/05/18 07:00 BP 143/87 06/05/18 07:00 Pulse Ox 94 L 06/05/18 08:12 Intake & Output 06/04/18 06/05/18 06/05/18 18:59 06:59 18:59 Intake Total 1074.167 225 Output Total 505 510 295 Balance 569.167 -510 -70 Intake: IV 300 Dextrose 5%-0.45% NaCl 1, 300 000 ml @ 40 mls/hr IV . Q24H [facility] Rx#:[id number] Intake, IV Titration 174.167 Amount Ropivacaine 400 mg 174.167 Hydromorphone (Pf) 5 mg In Sodium Chloride 0.9% 170 ml @ Per Protocol EPIDURAL .Q0M PRN Rx#: [id number] Oral 600 225 Output: Chest Tube Drainage 120 30 110 Left Pleural 120 30 110 Urine 385 480 185 Other: Voiding Method Indwelling Catheter Indwelling Catheter ABP, PAP, CO, CI - Last Documented Arterial Blood Pressure 143/61 - Constitutional General appearance: Present: cooperative, no acute distress, thin - Respiratory Details: Lung sounds essentially clear throughout, diminished to his bilateral bases left greater than right. Respirations are symmetrical and nonlabored. Oxygen saturation are 98% on room air. He is achieving 1000 mL on his incentive spirometry. Left pleural chest tube remains in place and is to water seal. No air leak is present. Draining thin serosanguineous drainage. 110 mL output in the last 8 hours, 250 mL output the last 24 hours. Subcu emphysema present to his left chest. - Cardiovascular Details: Regular rhythm and rate. S1 and S2 present, negative for S3, gallop or murmur. Bedside telemetry showing normal sinus rhythm heart rate 87. No edema present. Knee-high GURINDER hose and sequential compression devices in place to his bilateral lower extremities. - Gastrointestinal Gastrointestinal Comment(s): Abdomen is soft, nontender and nondistended. Active bowel sounds all 4 abdominal quadrants. No organomegaly. No guarding or rigidity. Tolerating oral intake. Passing flatus. - Genitourinary Genitourinary Comment(s): Myrick catheter for accurate I&O, draining clear german urine. 395 mL output in the last 8 hours. - Integumentary Integumentary Comment(s): Skin is warm and dry. No clubbing or cyanosis present. Epidural site is clean, dry and intact. Left chest thoracotomy incision clean, dry and approximated. No drainage or redness is present. Gauze dressing in place clean, and dry. - Neurologic Neurologic: Present: CNII-XII intact - Musculoskeletal Musculoskeletal: Present: gait normal, strength equal bilaterally - Psychiatric Psychiatric: Present: A&O x's 3, appropriate affect, intact judgment & insight - Allied health notes Allied health notes reviewed: nursing - Labs CBC & Chem 7: 06/05/18 05:00 06/05/18 05:00 Labs: Abnormal Lab Results - Last 24 Hours (Table) 06/05/18 06/05/18 Range/Units 05:00 05:00 WBC 11.5 H (3.8-10.6) k/uL RBC 3.49 L (4.30-5.90) m/uL Hgb 11.0 L (13.0-17.5) gm/dL Hct 32.4 L (39.0-53.0) % Sodium 133 L (137-145) mmol/L Creatinine 0.61 L (0.66-1.25) mg/dL Glucose 105 H (74-99) mg/dL Microbiology - Last 24 Hours (Table) 06/04/18 10:30 Gram Stain - Preliminary Sputum - Imaging and Cardiology Chest x-ray: report reviewed, image reviewed Assessment and Plan (1) Status post thoracotomy Current Visit: Yes Status: Acute Code(s): Z98.890 - OTHER SPECIFIED POSTPROCEDURAL STATES SNOMED Code(s): 18672556235209 (2) Lung cancer Current Visit: Yes Status: Acute Code(s): C34.90 - MALIGNANT NEOPLASM OF UNSP PART OF UNSP BRONCHUS OR LUNG SNOMED Code(s): 988367358 (3) Tobacco dependence due to cigarettes Current Visit: Yes Status: Chronic Code(s): F17.210 - NICOTINE DEPENDENCE, CIGARETTES, UNCOMPLICATED SNOMED Code(s): 08059771138863137 (4) History of chronic cough Current Visit: Yes Status: Chronic Code(s): Z87.09 - PERSONAL HISTORY OF OTHER DISEASES OF THE RESPIRATORY SYSTEM SNOMED Code(s): 715319270 (5) Weight loss, non-intentional Current Visit: Yes Status: Acute Code(s): R63.4 - ABNORMAL WEIGHT LOSS SNOMED Code(s): 950778641 (6) Hyperlipidemia Current Visit: Yes Status: Chronic Code(s): E78.5 - HYPERLIPIDEMIA, UNSPECIFIED SNOMED Code(s): 96253487 (7) Family history of cancer Current Visit: Yes Status: Resolved Code(s): Z80.9 - FAMILY HISTORY OF MALIGNANT NEOPLASM, UNSPECIFIED SNOMED Code(s): 980964356 Plan: 1. Left pleural chest tube was placed to waterseal this morning. If no airleak to the left pleural chest tube tomorrow we will discontinue his chest tube.. 2. Pathology results pending. 3. Encourage incentive spirometry 10 times every hour while awake. 4. Pain control with current medication regimen. Continue epidural while the left pleural chest tube is in place, managed by anesthesia. Discontinue Myrick catheter once epidural is discontinued. 5. GI prophylaxis with Protonix, DVT prophylaxis with subcu heparin, SCDs. 6. Will monitor daily x-rays. 7. Bronchodilators per pulmonology management. 8. Continue home medications. 9. Encourage smoking cessation. Discussed the importance of smoking cessation. 10. Increase activity as tolerated. 11. More recommendations to follow based on clinical course. Time with Patient: Greater than 30
--- NOTE | 2018-06-05 14:06 | P.PN ---
Subjective Progress Note Date: 06/05/18 This is a 57-year-old white male who was recently seen by his primary care physician for chronic cough, some vague aches and pains in the thoracic spine. CT of the chest showed a left infrahilar mass abutting the cardiac atrium, the mass is 3.6 cm in size. . Patient describes about 15 pound weight loss over the last 2 years, describes chronic cough which is nonproductive, denies any hemoptysis, denies any chest pain, but he does have pain over the thoracic spine which is chronic. At least 3 months in duration. Patient has been a smoker over the years, he is at least a [id number] smoker, and he is now to 10 cigarettes per day. He has a preserved lung capacity with an FEV1 of 75% of predicted. He underwent a PET scan that was done on 05/22/2018 and the PET scan showed marked increased uptake in the infrahilar mass compatible with neoplasm. The patient has a left infrahilar mass which is estimated to be around 4.3 cm in diameter. There is another 7 mm nodular density in the periphery of the right lower lung leahy. This is probably inflammatory in nature. The mass is quite large and is invading the mediastinum, abutting the descending aorta and the posterior heart border and causing problems some mass effect on the esophagus. No reported dysphagia or swallowing difficulties. The patient is having dull aching pain in the left posterior chest area. I referred this patient for CV surgery in consultation for a left lower lobe resection. I was concerned that this is a T4 lesion. I had further discussions with Dr. Zuluaga. Based on discussion, we decided to undergo lobectomy at least give this patient a surgical chance. The surgery was done today. The patient underwent a left thoracotomy, left lower lobectomy, mediastinal lymph node dissection, resection of the left atrium at the insertion of the left inferior pulmonary vein and cryoablation of the left intercostal nerve 3,4,5,6,7.. The estimated blood loss was 500 mL. The patient following that there was brought into the intensive care unit. He was already extubated. The patient had epidural Dilaudid and bupivacaine for pain control. He is on 10 L of oxygen nasal cannula. Pulse ox 95%. Chest x-ray showing left lower lobectomy changes. The patient is a left-sided chest tube in place and there is no evidence of any air leak or pneumothorax. The patient is hemodynamically stable at this point in time. He is on DuoNeb nebulized treatments around the clock. He is on IV antibiotic prophylaxis. He is on heparin subcu for DVT prophylaxis. On 06/04/2018 patient seen in follow-up in intensive care unit, he is awake and alert, oriented 3, in no acute distress, this is postop day 1 status post left thoracotomy, left lower lobe mass resection, left atrium resection at the level of the insertion of the left pulmonary artery. She has a left-sided chest tube in place, to waterseal, no air leak noted, and there is a total of 430 of serosanguineous output in the Pleur-evac. Drainage from the chest tube is thin and watery, continues to smoke morning. Lung sounds are positive for scattered rhonchi at the left lower lobe, and has effective cough, he is producing moderate to large amount of thick yellow sputum. Incentive spirometer effort is 750 ML today. His chest x-ray has been reviewed with Dr. Klein, showed postoperative changes with subcutaneous emphysema on the left but no sizable pneumothorax, bilateral postoperative atelectasis. Biopsy results are still pending. Today's lab work has been reviewed, white blood cell count of 17.0, hemoglobin is 12.2, sodium is 136, the rest of electrolytes are within normal limits, B1 is 20 and creatinine 0.60. Fluids D5 at a rate of 40 ML per hour, this rhythm on the monitor with a rate of 67, hemodynamic patient is stable. Bupivacaine and Dilaudid at a rate of 10 ML per hour On today's evaluation of 06/04/2018, the patient is fully awake and alert. The patient is postop day #2 post left thoracotomy and left lower lobe resection. Doing extremely well. The left-sided chest tubes In place. Chest x-ray shows adequate expansion of the left lung. Pain is under good control with epidural Dilaudid and bupivacaine. The output from the chest tube was noted and the patient has no significant output over the past 8 hours. There is no evidence of any air leak. Some minimal subcu emphysema has developed his left chest. He is tolerating his diet. No nausea. No vomiting. No emesis. No other significant events overnight. No altered mentation. Objective - Vital Signs Vital signs: Vital Signs Temp 98.0 F 02/23/19 12:00 Pulse 87 06/05/18 12:00 Resp 20 06/05/18 12:00 BP 107/82 06/05/18 11:00 Pulse Ox 95 06/05/18 12:00 Intake & Output 06/04/18 06/05/18 06/05/18 18:59 06:59 18:59 Intake Total 1074.167 768.667 Output Total 505 510 425 Balance 569.167 -510 343.667 Weight 63 kg Intake: IV 300 Dextrose 5%-0.45% NaCl 1, 300 000 ml @ 40 mls/hr IV . [facility] Rx#:[id number] Intake, IV Titration 174.167 243.667 Amount Ropivacaine 400 mg 174.167 243.667 Hydromorphone (Pf) 5 mg In Sodium Chloride 0.9% 170 ml @ Per Protocol EPIDURAL .Q0M PRN Rx#: [id number] Oral 600 525 Output: Chest Tube Drainage 120 30 110 Left Pleural 120 30 110 Urine 385 480 315 Other: Voiding Method Indwelling Catheter Indwelling Catheter Indwelling Catheter ABP, PAP, CO, CI - Last Documented Arterial Blood Pressure 121/64 - Exam - Constitutional General appearance: Present: cooperative, no acute distress, thin - Respiratory Details: Lung sounds essentially clear throughout, diminished to his bilateral bases left greater than right. Respirations are symmetrical and nonlabored. Oxygen saturation are 98% on room air. He is achieving 1000 mL on his incentive spirometry. Left pleural chest tube remains in place and is to water seal. No air leak is present. Draining thin serosanguineous drainage. 110 mL output in the last 8 hours, 250 mL output the last 24 hours. Subcu emphysema present to his left chest. - Cardiovascular Details: Regular rhythm and rate. S1 and S2 present, negative for S3, gallop or murmur. Bedside telemetry showing normal sinus rhythm heart rate 87. No edema present. Knee-high GURINDER hose and sequential compression devices in place to his bilateral lower extremities. - Gastrointestinal Gastrointestinal Comment(s): Abdomen is soft, nontender and nondistended. Active bowel sounds all 4 abdominal quadrants. No organomegaly. No guarding or rigidity. Tolerating oral intake. Passing flatus. - Genitourinary Genitourinary Comment(s): Myrick catheter for accurate I&O, draining clear german urine. 395 mL output in the last 8 hours. - Integumentary Integumentary Comment(s): Skin is warm and dry. No clubbing or cyanosis present. Epidural site is clean , dry and intact. Left chest thoracotomy incision clean, dry and approximated. No drainage or redness is present. Gauze dressing in place clean, and dry. - Neurologic Neurologic: Present: CNII-XII intact - Musculoskeletal Musculoskeletal: Present: gait normal, strength equal bilaterally - Psychiatric Psychiatric: Present: A&O x's 3, appropriate affect, intact judgment & insight - Labs CBC & Chem 7: 06/05/18 05:00 06/05/18 05:00 Labs: Abnormal Lab Results - Last 24 Hours (Table) 06/05/18 06/05/18 Range/Units 05:00 05:00 WBC 11.5 H (3.8-10.6) k/uL RBC 3.49 L (4.30-5.90) m/uL Hgb 11.0 L (13.0-17.5) gm/dL Hct 32.4 L (39.0-53.0) % Sodium 133 L (137-145) mmol/L Creatinine 0.61 L (0.66-1.25) mg/dL Glucose 105 H (74-99) mg/dL Microbiology - Last 24 Hours (Table) 06/04/18 10:30 Gram Stain - Preliminary Sputum Assessment and Plan Plan: Assessment 1 left thoracotomy, left lower lobe resection, resection of the left atrium at the insertion of left inferior pulmonary vein. The patient is postop day #2. The patient has recovered very nicely. The patient has done extremely well. The patient has been a left-sided chest tube and output has been noted to be 250 mL over the past 24 hours and 170s over the past 8 hours. The patient developed some limited appearance emphysema along the left chest area. 2 left lung mass, likely malignant, likely primary bronchogenic cancer 3 COPD mild currently inactive in stable 4 post thoracotomy pain currently on the Dulera bupivacaine and lotted for pain control 5 history of smoking 6 weight loss 7 hypertension 8 hyperlipidemia Plan Provide the patient incentive spirometer. Provide the patient adequate pain control. He is hemodynamically stable. Chest tube is in place and output is minimal at this point in time. Monitor the output from the chest tube. Consider removing the chest tube in a.m. Continue using incentive spirometer. Continue epidural Dilaudid for pain control for another 24 hours. We'll continue to follow. Good progress postop.
[2018-06-05] MEDS: HYDROcodone/APAP 7.5-325MG 1 EACH TAB PO PRN ×2 (14:25→18:28)
[2018-06-05] MEDS ORDERED: BISACODYL 10 MG SUPP RECTAL STA (18:03)
[2018-06-06] MEDS: HEPARIN SODIUM,PORCINE 5,000 UNIT/ML 1 ML VIAL SQ SCH ×3 (00:49→17:29)
[2018-06-06] MEDS: KETOROLAC 30 MG/ML 1 ML VIAL IVP SCH ×2 (00:49→05:41)
[2018-06-06] MEDS: HYDROcodone/APAP 7.5-325MG 1 EACH TAB PO PRN ×2 (02:23→09:36)
[2018-06-06] MEDS: IPRATROPIUM-ALBUTEROL 3 ML NEB IH SCH ×4 (08:16→20:56)
--- NOTE | 2018-06-06 08:30 | XR ---
EXAMINATION TYPE: XR chest 1V DATE OF EXAM: 06/06/2018 COMPARISON: 06/05/2018 INDICATION: Left-sided chest TECHNIQUE: Single frontal view of the chest is obtained. FINDINGS: The heart size is normal. The pulmonary vasculature is normal. No pneumothorax is evident. No suspicious infiltrates are evident. Extensive subcutaneous emphysema i s present along the left lateral chest. Left-sided chest tube is present directed towards the hilum a nd towards the apex. IMPRESSION: 1. Left-sided chest tube remains in position. No pneumothorax is evident. 2. Subcutaneous emphysema along the chest wall
[2018-06-06 08:46] LABS: ALT 29 U/L (21-72); AST 33 U/L (17-59); Alkaline Phosphatase 65 U/L (38-126); Anion Gap 9 mmol/L; Blood Urea Nitrogen 16 mg/dL (9-20); Calcium 8.8 mg/dL (8.4-10.2); Carbon Dioxide 28 mmol/L (22-30); Chloride 101 mmol/L (98-107); Glucose 118 mg/dL (74-99); Magnesium 2.1 mg/dL (1.6-2.3); Potassium 4.1 mmol/L (3.5-5.1); Sodium 138 mmol/L (137-145); Total Bilirubin 0.7 mg/dL (0.2-1.3); Total Protein 5.6 g/dL (6.3-8.2)
[2018-06-06 08:57] LABS: Basophils % (A) 0 %; Eosinophils # (A) 0.4 k/uL (0-0.7); Eosinophils % (A) 5 %; HCT 33.3 % (39.0-53.0); HGB 10.8 gm/dL (13.0-17.5); Lymphocytes # (A) 1.1 k/uL (1.0-4.8); Lymphocytes % (A) 14 %; MCH 31.2 pg (25.0-35.0); MCHC 32.5 g/dL (31.0-37.0); Monocytes # (A) 0.4 k/uL (0-1.0); Monocytes % (A) 4 %; Neutrophils # (A) 6.2 k/uL (1.3-7.7); Neutrophils % (A) 76 %; Platelet Count 268 k/uL (150-450); RBC 3.46 m/uL (4.30-5.90); RDW 13.6 % (11.5-15.5); WBC 8.1 k/uL (3.8-10.6)
[2018-06-06] MEDS: METOPROLOL TARTRATE 25 MG TAB PO SCH ×2 (09:37→21:40)
[2018-06-06] MEDS: ATORVASTATIN 10 MG TAB PO SCH (09:37)
[2018-06-06] MEDS: PANTOPRAZOLE 40 MG TABLET PO SCH (09:37)
--- NOTE | 2018-06-06 10:55 | P.PN ---
Subjective Progress Note Date: 06/06/18 Principal diagnosis: Lung cancer left lower lobe lung. No previous medical history except hyperlipidemia, current tobacco dependence with [id number]-lrld smoking history and moderate obstructive lung disease, chronic cough and 15 pound weight loss over the previous 2 years. Family history of cancer and myocardial infarction POD #3 left thoracotomy, left lower lobectomy, mediastinal lymph node dissection, resection of left atrium at the insertion of the left inferior pulmonary vein, cryoablation of the left intercostal nerves 3, 4, 5, 6, 7 Patient is sitting up to the bedside chair. He is in no acute distress. Currently rates his pain 4 out of 10 on the pain scale to his left chest tube insertion site. Denies any complaints of shortness of breath. He remains hemodynamically stable. Epidural catheter according to the patient fell out yesterday when he was ambulating. The patient reports he ambulated in the cardiac care unit yesterday with minimal assistance. He is achieving 1500 mL on his incentive spirometry. Subcutaneous emphysema to his left chest is present. He remains afebrile. He states that he is anxious to get his left pleural chest tube out and be discharged home. Objective - Vital Signs Vital signs: Vital Signs Temp 98.8 F 06/06/18 04:00 Pulse 88 06/06/18 08:30 Resp 15 06/06/18 04:00 BP 130/75 06/06/18 04:00 Pulse Ox 95 06/06/18 04:00 Intake & Output 06/05/18 06/06/18 06/06/18 18:59 06:59 18:59 Intake Total 1118.667 240 Output Total 550 2200 Balance 568.667 -2200 240 Weight 63 kg 62.8 kg Intake: Intake, IV Titration 243.667 Amount Ropivacaine 400 mg 243.667 Hydromorphone (Pf) 5 mg In Sodium Chloride 0.9% 170 ml @ Per Protocol EPIDURAL .Q0M PRN Rx#: [id number] Oral 875 240 Output: Chest Tube Drainage 110 950 Left Pleural 110 950 Urine 440 1250 Other: Voiding Method Indwelling Catheter Indwelling Catheter # Voids 2 ABP, PAP, CO, CI - Last Documented Arterial Blood Pressure 121/64 - Constitutional General appearance: Present: cooperative, no acute distress, thin - Respiratory Details: Lung sounds essentially clear throughout, diminished to his bilateral bases. Respirations are symmetrical and nonlabored. Oxygen saturation are 95% on room air. He is achieving 1500 mL on his incentive spirometry. Left pleural chest tube remains in place to water seal. No air leaks present. Draining thin serosanguineous drainage. 240 mL output in the last 24 hours. - Cardiovascular Details: Regular rhythm and rate. S1 and S2 present, negative for S3, gallop or murmur. No edema present. Remote telemetry showing normal sinus rhythm heart rate 83. Sequential compression devices in place to his bilateral lower extremities. - Gastrointestinal Gastrointestinal Comment(s): Abdomen is soft, nontender and nondistended. Active bowel sounds all 4 abdominal quadrants. Bowel movement this a.m. Tolerating oral intake. No guarding or rigidity. No organomegaly. - Genitourinary Genitourinary Comment(s): Voiding clear yellow urine. 1000 mL output in the last 8 hours. - Integumentary Integumentary Comment(s): Skin is warm and dry. No clubbing or cyanosis is present. Left thoracotomy incision is clean, dry and approximated. No drainage or redness present. Gauze dressing clean and dry. - Neurologic Neurologic: Present: CNII-XII intact - Musculoskeletal Musculoskeletal: Present: gait normal, strength equal bilaterally - Psychiatric Psychiatric: Present: A&O x's 3, appropriate affect, intact judgment & insight - Allied health notes Allied health notes reviewed: nursing - Labs CBC & Chem 7: 06/06/18 08:05 06/06/18 08:05 Labs: Abnormal Lab Results - Last 24 Hours (Table) 06/06/18 06/06/18 Range/Units 08:05 08:05 RBC 3.46 L (4.30-5.90) m/uL Hgb 10.8 L (13.0-17.5) gm/dL Hct 33.3 L (39.0-53.0) % Creatinine 0.63 L (0.66-1.25) mg/dL Glucose 118 H (74-99) mg/dL Total Protein 5.6 L (6.3-8.2) g/dL Albumin 3.0 L (3.5-5.0) g/dL Microbiology - Last 24 Hours (Table) 06/04/18 10:30 Gram Stain - Preliminary Sputum Sputum Culture - Preliminary Moraxella(branhamella) catarra - Imaging and Cardiology Chest x-ray: report reviewed, image reviewed Assessment and Plan (1) Status post thoracotomy Current Visit: Yes Status: Acute Code(s): Z98.890 - OTHER SPECIFIED POSTPROCEDURAL STATES SNOMED Code(s): 72849257499669 (2) Lung cancer Current Visit: Yes Status: Acute Code(s): C34.90 - MALIGNANT NEOPLASM OF UNSP PART OF UNSP BRONCHUS OR LUNG SNOMED Code(s): 816015771 (3) Tobacco dependence due to cigarettes Current Visit: Yes Status: Chronic Code(s): F17.210 - NICOTINE DEPENDENCE, CIGARETTES, UNCOMPLICATED SNOMED Code(s): 82212693960661785 (4) History of chronic cough Current Visit: Yes Status: Chronic Code(s): Z87.09 - PERSONAL HISTORY OF OTHER DISEASES OF THE RESPIRATORY SYSTEM SNOMED Code(s): 382282450 (5) Weight loss, non-intentional Current Visit: Yes Status: Acute Code(s): R63.4 - ABNORMAL WEIGHT LOSS SNOMED Code(s): 846837161 (6) Hyperlipidemia Current Visit: Yes Status: Chronic Code(s): E78.5 - HYPERLIPIDEMIA, UNSPECIFIED SNOMED Code(s): 37571688 (7) Family history of cancer Current Visit: Yes Status: Resolved Code(s): Z80.9 - FAMILY HISTORY OF MALIG NANT NEOPLASM, UNSPECIFIED SNOMED Code(s): 993584897 Plan: 1. Left pleural chest tube was placed to waterseal this morning. If no airleak to the left pleural chest tube tomorrow we will discontinue his chest tube.. 2. Pathology results pending. 3. Encourage incentive spirometry 10 times every hour while awake. 4. Pain control with current medication regimen. 5. GI prophylaxis with Protonix, DVT prophylaxis with subcu heparin, SCDs. 6. Will monitor daily x-rays. 7. Bronchodilators per pulmonology management. 8. Continue home medications. 9. Encourage smoking cessation. Discussed the importance of smoking cessation. 10. Increase activity as tolerated. 11. More recommendations to follow based on clinical course. Time with Patient: Greater than 30
[2018-06-06] MEDS ORDERED: IBUPROFEN 400 MG TAB PO PRN (11:33)
--- NOTE | 2018-06-06 13:46 | XR ---
EXAMINATION TYPE: XR chest 1V portable DATE OF EXAM: 06/06/2018 COMPARISON: 06/06/2018 and earlier exam INDICATION: Chest tube removal TECHNIQUE: Single frontal view of the chest is obtained. FINDINGS: The heart size is normal. The pulmonary vasculature is normal. The lungs are clear. No sizable pneumothorax is evident. Subcutaneous emphysema remains on the left. IMPRESSION: 1. No significant pneumothorax post chest tube removal. Follow-up can be performed as clinically sagar cated.
--- NOTE | 2018-06-06 13:46 | P.PN ---
Subjective Progress Note Date: 06/06/18 This is a 57-year-old white male who was recently seen by his primary care physician for chronic cough, some vague aches and pains in the thoracic spine. CT of the chest showed a left infrahilar mass abutting the cardiac atrium, the mass is 3.6 cm in size. . Patient describes about 15 pound weight loss over the last 2 years, describes chronic cough which is nonproductive, denies any hemoptysis, denies any chest pain, but he does have pain over the thoracic spine which is chronic. At least 3 months in duration. Patient has been a smoker over the years, he is at least a 25-ahun-sswi smoker, and he is now to 10 cigarettes per day. He has a preserved lung capacity with an FEV1 of 75% of predicted. He underwent a PET scan that was done on 05/22/2018 and the PET scan showed marked increased uptake in the infrahilar mass compatible with neoplasm. The patient has a left infrahilar mass which is estimated to be around 4.3 cm in diameter. There is another 7 mm nodular density in the periphery of the right lower lung leahy. This is probably inflammatory in nature. The mass is quite large and is invading the mediastinum, abutting the descending aorta and the posterior heart border and causing problems some mass effect on the esophagus. No reported dysphagia or swallowing difficulties. The patient is having dull aching pain in the left posterior chest area. I referred this patient for CV surgery in consultation for a left lower lobe resection. I was concerned that this is a T4 lesion. I had further discussions with Dr. Zuluaga. Based on discussion, we decided to undergo lobectomy at least give this patient a surgical chance. The surgery was done today. The patient underwent a left thoracotomy, left lower lobectomy, mediastinal lymph node dissection, resection of the left atrium at the insertion of the left inferior pulmonary vein and cryoablation of the left intercostal nerve 3,4,5,6,7.. The estimated blood loss was 500 mL. The patient following that there was brought into the intensive care unit. He was already extubated. The patient had epidural Dilaudid and bupivacaine for pain control. He is on 10 L of oxygen nasal cannula. Pulse ox 95%. Chest x-ray showing left lower lobectomy changes. The patient is a left-sided chest tube in place and there is no evidence of any air leak or pneumothorax. The patient is hemodynamically stable at this point in time. He is on DuoNeb nebulized treatments around the clock. He is on IV antibiotic prophylaxis. He is on heparin subcu for DVT prophylaxis. On 06/04/2018 patient seen in follow-up in intensive care unit, he is awake and alert, oriented 3, in no acute distress, this is postop day 1 status post left thoracotomy, left lower lobe mass resection, left atrium resection at the level of the insertion of the left pulmonary artery. She has a left-sided chest tube in place, to waterseal, no air leak noted, and there is a total of 430 of serosanguineous output in the Pleur-evac. Drainage from the chest tube is thin and watery, continues to smoke morning. Lung sounds are positive for scattered rhonchi at the left lower lobe, and has effective cough, he is producing moderate to large amount of thick yellow sputum. Incentive spirometer effort is 750 ML today. His chest x-ray has been reviewed with Dr. Klein, showed postoperative changes with subcutaneous emphysema on the left but no sizable pneumothorax, bilateral postoperative atelectasis. Biopsy results are still pending. Today's lab work has been reviewed, white blood cell count of 17.0, hemoglobin is 12.2, sodium is 136, the rest of electrolytes are within normal limits, B1 is 20 and creatinine 0.60. Fluids D5 at a rate of 40 ML per hour, this rhythm on the monitor with a rate of 67, hemodynamic patient is stable. Bupivacaine and Dilaudid at a rate of 10 ML per hour On today's evaluation of 06/04/2018, the patient is fully awake and alert. The patient is postop day #2 post left thoracotomy and left lower lobe resection. Doing extremely well. The left-sided chest tubes In place. Chest x-ray shows adequate expansion of the left lung. Pain is under good control with epidural Dilaudid and bupivacaine. The output from the chest tube was noted and the patient has no significant output over the past 8 hours. There is no evidence of any air leak. Some minimal subcu emphysema has developed his left chest. He is tolerating his diet. No nausea. No vomiting. No emesis. No other significant events overnight. No altered mentation. On 06/06/2018, patient is postop day #3. Doing extremely well. Output from the chest tube is minimal and I asked to remove the chest tubes today and this was done successfully. The chest x-ray following the removal of the chest tube showed no evidence of any pneumothorax on the left lung was well expanded. He has no respiratory distress. He is on room air oxygen. No cough or sputum production. Surgical wound site is dry clean and intact. Epidural catheter has been removed. The patient has no specific complaints is ambulating. He is using incentive spirometer. Possible discharge in the next 24-48 hours. Otherwise were still awaiting the final path from the left lower lobectomy that was done at time of surgery. The patient is postop day #3. Objective - Vital Signs Vital signs: Vital Signs Temp 97.8 F 06/06/18 09:25 Pulse 90 06/06/18 09:25 Resp 16 06/06/18 09:25 BP 142/73 06/06/18 09:25 Pulse Ox 97 06/06/18 09:25 Intake & Output 06/05/18 06/06/18 06/06/18 18:59 06:59 18:59 Intake Total 1118.667 240 Output Total 550 2200 Balance 568.667 -2200 240 Weight 63 kg 62.8 kg Intake: Intake, IV Titration 243.667 Amount Ropivacaine 400 mg 243.667 Hydromorphone (Pf) 5 mg In Sodium Chloride 0.9% 170 ml @ Per Protocol EPIDURAL .Q0M PRN Rx#: [id number] Oral 875 240 Output: Chest Tube Drainage 110 950 Left Pleural 110 950 Urine 440 1250 Other: Voiding Method Indwelling Catheter Indwelling Catheter # Voids 2 ABP, PAP, CO, CI - Last Documented Arterial Blood Pressure 121/64 - Exam - Constitutional General appearance: Present: cooperative, no acute distress, thin - Respiratory Details: Lung sounds essentially clear throughout, diminished to his bilateral bases left greater than right. Respirations are symmetrical and nonlabored. Chest tubes have been removed. The breath sounds are diminished in the left base compared to the right. Surgical wound site is dry clean and intact. - Cardiovascular Details: Regular rhythm and rate. S1 and S2 present, negative for S3, gallop or murmur. Bedside telemetry showing normal sinus rhythm heart rate 87. No edema present. Knee-high GURINDER hose and sequential compression devices in place to his bilateral lower extremities. - Gastrointestinal Gastrointestinal Comment(s): Abdomen is soft, nontender and nondistended. Active bowel sounds all 4 abdominal quadrants. No organomegaly. No guarding or rigidity. Tolerating oral intake. Passing flatus. - Genitourinary Genitourinary Comment(s): Myrick catheter for accurate I&O, draining clear german urine. 395 mL output in the last 8 hours. - Integumentary Integumentary Comment(s): Skin is warm and dry. No clubbing or cyanosis present. Epidural site is clean , dry and intact. Left chest thoracotomy incision clean, dry and approximated. No drainage or redness is present. Gauze dressing in place clean, and dry. - Neurologic Neurologic: Present: CNII-XII intact - Musculoskeletal Musculoskeletal: Present: gait normal, strength equal bilaterally - Psychiatric Psychiatric: Present: A&O x's 3, appropriate affect, intact judgment & insight - Labs CBC & Chem 7: 06/06/18 08:05 06/06/18 08:05 Labs: Abnormal Lab Results - Last 24 Hours (Table) 06/06/18 06/06/18 Range/Units 08:05 08:05 RBC 3.46 L (4.30-5.90) m/uL Hgb 10.8 L (13.0-17.5) gm/dL Hct 33.3 L (39.0-53.0) % Creatinine 0.63 L (0.66-1.25) mg/dL Glucose 118 H (74-99) mg/dL Total Protein 5.6 L (6.3-8.2) g/dL Albumin 3.0 L (3.5-5.0) g/dL Microbiology - Last 24 Hours (Table) 06/04/18 10:30 Gram Stain - Preliminary Sputum Sputum Culture - Preliminary Moraxella(branhamella) catarra Assessment and Plan Plan: Assessment 1 left thoracotomy, left lower lobe resection, resection of the left atrium at the insertion of left inferior pulmonary vein. The patient is postop day #3. The patient is recovering nicely from the surgery. The patient had minimal output from the chest tubes were removed today. Chest x-ray shows no complications. 2 left lung mass, likely malignant, likely primary bronchogenic cancer 3 COPD mild currently inactive in stable 4 post thoracotomy pain currently on the Dulera bupivacaine and lotted for pain control 5 history of smoking 6 weight loss 7 hypertension 8 hyperlipidemia Plan Provide the patient incentive spirometer. Provide the patient adequate pain control. The epidural catheter has been removed. He is hemodynamically stable. Chest tube is in place and output is minimal and will remove the chest tubes today and the following chest x-ray shows no evidence of any pneumothorax and left lung as well expanded. Incision over the left thoracotomy scar dry clean and intact. The patient is ambulating. The patient is maintaining her pulse ox above 90% on room air oxygen. Possible discharge in a.m. He remains quite stable. Final pathology from the left lower lobectomy is not available at this point in time.
[2018-06-06] MEDS: AZITHROMYCIN 500 MG TAB PO SCH (14:52)
[2018-06-06] MEDS: ACETAMINOPHEN TAB 500 MG TAB PO PRN (17:30)
[2018-06-07] MEDS: HEPARIN SODIUM,PORCINE 5,000 UNIT/ML 1 ML VIAL SQ SCH ×2 (00:19→10:43)
[2018-06-07] MEDS: ACETAMINOPHEN TAB 500 MG TAB PO PRN (00:19)
[2018-06-07] MEDS: HYDROcodone/APAP 5-325MG 1 EACH TAB PO PRN ×2 (02:27→10:50)
[2018-06-07 05:46] VITALS: RESP 15
[2018-06-07 06:36] LABS: HCT 33.9 % (39.0-53.0); HGB 11.4 gm/dL (13.0-17.5); MCH 31.4 pg (25.0-35.0); MCHC 33.6 g/dL (31.0-37.0); MCV 93.5 fL (80.0-100.0); Mean Platelet Volume 7.5; Platelet Count 335 k/uL (150-450); RBC 3.63 m/uL (4.30-5.90); RDW 13.6 % (11.5-15.5); WBC 10.1 k/uL (3.8-10.6)
[2018-06-07 06:47] LABS: Anion Gap 9 mmol/L; Blood Urea Nitrogen 13 mg/dL (9-20); Carbon Dioxide 27 mmol/L (22-30); Chloride 103 mmol/L (98-107); Glucose 108 mg/dL (74-99); Potassium 4.1 mmol/L (3.5-5.1); Sodium 139 mmol/L (137-145)
[2018-06-07] MEDS: IPRATROPIUM-ALBUTEROL 3 ML NEB IH SCH ×2 (08:55→11:45)
--- NOTE | 2018-06-07 09:24 | P.PN ---
Subjective Progress Note Date: 06/07/18 Principal diagnosis: Lung cancer left lower lobe lung. No previous medical history except current tobacco dependence with [id number] smoking history and moderate obstructive lung disease, chronic cough and 15 pound weight loss over the previous 2 years. Family history of cancer and myocardial infarction POD #4 left thoracotomy, left lower lobectomy, mediastinal lymph node dissection, resection of left atrium at the insertion of the left inferior pulmonary vein, cryoablation of the left intercostal nerves III, 4, 5, 6, 7 Sputum culture positive for moraxella catarra, remains afebrile, no leukocytosis The patient sitting up in a recliner in no acute distress. States pain is well- controlled, mostly just hurts when he is coughing. Denies shortness of breath. Chest tube has been discontinued, patient has ambulated in the hallway without difficulty. Objective - Vital Signs Vital signs: Vital Signs Temp 98.2 F 06/07/18 04:00 Pulse 84 06/07/18 09:04 Resp 15 06/07/18 04:00 BP 148/79 06/07/18 04:00 Pulse Ox 95 06/07/18 04:00 Intake & Output 06/06/18 06/07/18 06/07/18 18:59 06:59 18:59 Intake Total 240 456 Output Total 600 Balance 240 -600 456 Weight 65.2 kg Intake: Oral 240 456 Output: Urine 600 Other: Voiding Method Indwelling Catheter # Voids 3 2 ABP, PAP, CO, CI - Last Documented Arterial Blood Pressure 121/64 - Constitutional General appearance: Present: cooperative, no acute distress, thin - Respiratory Details: Lungs sounds diminished bilaterally. Respirations even, nonlabored. Currently on room air with oxygen saturation 95%. Able to achieve 750-1000 mL on his incentive spirometry. Strong cough. - Cardiovascular Details: S1, S2 present. Regular rate and rhythm, sinus rhythm on telemetry. Palpable peripheral pulses bilaterally. No edema present. No calf pain or tenderness no aurora. - Gastrointestinal Gastrointestinal Comment(s): Abdomen soft, nontender, nondistended. Active bowel sounds present 4 quadrants. Tolerating diet. - Genitourinary Genitourinary Comment(s): Continues to void clear, yellow urine. - Integumentary Integumentary Comment(s): Skin is warm and dry with evidence of good perfusion. Left lateral wall incision sites well approximated and covered with dry intact dressing. Subcu emphysema present to left chest, decreased from yesterday. - Neurologic Neurologic: Present: CNII-XII intact - Musculoskeletal Musculoskeletal: Present: gait normal, strength equal bilaterally - Psychiatric Psychiatric: Present: A&O x's 3, appropriate affect, intact judgment & insight - Allied health notes Allied health notes reviewed: nursing - Labs CBC & Chem 7: 06/07/18 06:05 06/07/18 06:05 Labs: Abnormal Lab Results - Last 24 Hours (Table) 06/07/18 06/07/18 Range/Units 06:05 06:05 RBC 3.63 L (4.30-5.90) m/uL Hgb 11.4 L (13.0-17.5) gm/dL Hct 33.9 L (39.0-53.0) % Creatinine 0.57 L (0.66-1.25) mg/dL Glucose 108 H (74-99) mg/dL Microbiology - Last 24 Hours (Table) 06/04/18 10:30 Gram Stain - Preliminary Sputum Sputum Culture - Preliminary Moraxella(branhamella) catarra - Imaging and Cardiology Chest x-ray: image reviewed Assessment and Plan Assessment: 1. Lung cancer left lower lobe, status post left thoracotomy, left lower lobectomy, mediastinal lymph node dissection, resection of the left atrium at the insertion of the left inferior pulmonary vein, cryoablation of the left intercostal nerves 2. Current tobacco dependence with [id number] smoking history 3. Moderate obstructive lung disease 4. Chronic cough and 15 pound weight loss over the previous 2 years 5. Family history of cancer Plan: 1. Sputum culture positive for Moraxella, patient has been afebrile, no leukocytosis, started on Zithromax orally. 2. Pathology pending, will follow. 3. Encourage incentive spirometry 10 times every hour while awake. 4. Pain control with current medication regimen. 5. GI prophylaxis with Protonix, DVT prophylaxis with subcu heparin, SCDs. 6. Bronchodilators per pulmonology. 7. Continue home medications. 8. Encourage smoking cessation. 9. Will discharge to home this afternoon. Follow-up appointments made for Dr. Zuluaga and Dr. Klein. Time with Patient: Greater than 30
--- NOTE | 2018-06-07 09:34 | XR ---
EXAMINATION TYPE: XR chest 2V DATE OF EXAM: 06/07/2018 COMPARISON: 06/06/2018 TECHNIQUE: PA and lateral views submitted. HISTORY: Chest tube removal FINDINGS: Diffuse subcutaneous emphysema noted. No definite sizable pneumothorax post chest tube removal. Rib d eformities on the left are stable. There is blunting the costophrenic angle left-sided consolidation. Underlying COPD suggested. Right lung remains clear. Heart size normal. Atherosclerotic change aorta . Lateral view suggest a degree of pneumomediastinum. Mild degenerative changes spine. IMPRESSION: 1. Diffuse soft tissue emphysema. Lateral view may represent overlap of soft tissue emphysema rather than pneumomediastinum. 2. Left basilar infiltrate and small effusion.
[2018-06-07] MEDS: ATORVASTATIN 10 MG TAB PO SCH (10:43)
[2018-06-07] MEDS: AZITHROMYCIN 500 MG TAB PO SCH (10:43)
[2018-06-07] MEDS: METOPROLOL TARTRATE 25 MG TAB PO SCH (10:43)
[2018-06-07] MEDS: PANTOPRAZOLE 40 MG TABLET PO SCH (10:43)
[2018-06-07 11:13] VITALS: BP 131/72; TEMP 96.6
[2018-06-07 11:57] VITALS: PULSE 84
--- NOTE | 2018-06-07 14:30 | P.DS ---
Providers Date of admission: 06/03/18 06:52 Expected date of discharge: 06/07/18 Attending physician: Patrick Zuluaga Consults: 06/03/18 14:04 Consult Physician Routine Consulting Provider: Heidi Klein Consult Reason/Comments: Pulmonary management Do you want consulting provider notified?: Yes Primary care physician: Cesar James MD Hospital Course: FINAL DIAGNOSIS: 1. Lung cancer left lower lobe 2. Tobacco dependence, [id number] history 3. Moderate obstructive lung disease 4. Chronic cough 5. 15 pound weight loss over the previous 2 years 6. Family history of cancer 7. Sputum culture positive for Moraxella catarra PRINCIPAL PROCEDURE: 1. Left thoracotomy, left lower lobectomy, mediastinal lymph node dissection 2. Resection of the left atrium at the insertion of the left inferior pulmonary vein 3. Cryoablation of the left intercostal nerves 3, 4, 5, 6, 7 HISTORY OF PRESENT ILLNESS: This is a 58-year-old gentleman who follows with Dr. Cesar James on an outpatient basis. He was experiencing chronic nonproductive cough with vague aches and pains in his upper back. A CT of the chest was obtained at [facility] which demonstrated left infrahilar mass abutting the left atrium, the esophagus, and the descending thoracic aorta which measured 3.6 cm in diameter. A PET scan was performed demonstrating marked uptake in the mass with no evidence of metastasis. He denied hemoptysis, chest pain. His back pain is chronic over the previous several months and was worse at night. The patient was referred to Dr. Zuluaga from cardiothoracic surgery. He was recommended to undergo left lower lobectomy and mediastinal lymph node dissection through a left thoracotomy approach with possible atrial resection in order to gain negative margins. The usual perioperative course was discussed in detail with the patient and his family, all risks and benefits were explained, all questions were answered, and consent was obtained to proceed with surgery to be scheduled as an outpatient. HOSPITAL COURSE: The patient was brought to the hospital on 06/03/2018, taken to the preoperative area, prepared in the usual fashion, and subsequently taken to the operating room where Dr. Zuluaga performed left thoracotomy, left lower lobectomy, mediastinal lymph node dissection, resection of the left atrium at the insertion of the left inferior pulmonary vein, and cryoablation of the left intercostal nerves 3, 4, 5, 6, 7. Upon completion of surgery the patient was extubated and taken to the recovery room where he was monitored hemodynamically. He was eventually admitted to the intensive care unit for closer monitoring, lines and chest tube was discontinued when appropriate, and he was transferred to 3 S. cardiac stepdown unit for further monitoring and rehabilitation. His oxygen was titrated down, he was tolerating oral diet, his pain was controlled, and he was ready to be discharged to home on postoperative day #4. He received written and verbal instruction regarding his medications, activity restrictions, signs and symptoms requiring physician notification, and follow-up appointments. Pathology was still pending upon discharge. COMPLICATIONS: The patient experienced no postoperative complications. Patient Condition at Discharge: Good Plan - Discharge Summary Discharge Rx Participant: Yes New Discharge Prescriptions: New Acetaminophen Tab [Tylenol] 500 mg PO Q6HR PRN tab PRN Reason: Fever And/ Or Pain Azithromycin [Zithromax] 500 mg PO DAILY #4 tab Ibuprofen [Motrin] 400 mg PO Q6HR PRN tab PRN Reason: Pain Metoprolol Tartrate [Lopressor] 25 mg PO BID #60 tab Continue Atorvastatin [Lipitor] 10 mg PO DAILY Discontinued Ibuprofen [Advil] 200 mg PO DAILY PRN PRN Reason: Pain Peterman (Unknown Dose) 1 tab PO DAILY PRN PRN Reason: Pain Discharge Medication List Atorvastatin [Lipitor] 10 mg PO DAILY 05/27/18 [History] Acetaminophen Tab [Tylenol] 500 mg PO Q6HR PRN tab 06/07/18 [Rx] Azithromycin [Zithromax] 500 mg PO DAILY #4 tab 06/07/18 [Rx] Ibuprofen [Motrin] 400 mg PO Q6HR PRN tab 06/07/18 [Rx] Metoprolol Tartrate [Lopressor] 25 mg PO BID #60 tab 06/07/18 [Rx] Follow up Appointment(s)/Referral(s): Cesar James MD [Primary Care Provider] - 1 Week (Spoke to supervisor [employer] [facility]. Office will call with appointment time) Patrick Zuluaga MD [STAFF PHYSICIAN] - 06/17/18 10:45 am () Heidi Klein MD [STAFF PHYSICIAN] - 06/25/18 1:45 pm (Thursday) Patient Instructions/Handouts: Lung Lobectomy (DC) Activity/Diet/Wound Care/Special Instructions: DISCHARGE INSTRUCTIONS: 1. No driving for 2 weeks, or until physician gives their ok. 2. No lifting, pushing, or pulling more than 10 pounds for 2 weeks. The physician will advise of any restriction changes. 3. Continue pain control per as needed orders. Alternate acetaminophen (Tylenol) and ibuprofen (Motrin/Advil) for pain. 4. Continue with incentive spirometry and splinting until otherwise directed by the physician. 5. Leave chest tube dressing for 48 hours. After that, remove all dressings and shower daily. 6. Routine incision care. No powders, lotions, ointments on incisions. 7. Please call surgeon/COMMERCIAL DRAFTER for temp greater than 101 F or purulent drainage from incisions. Discharge Disposition: HOME SELF-CARE
--- NOTE | 2018-06-07 16:52 | P.PN ---
Subjective Progress Note Date: 06/07/18 Principal diagnosis: Left thoracotomy, left lower lobe resection, resection of the left atrium, left lung mass likely malignant, postop day 1 This is a 57-year-old white male who was recently seen by his primary care physician for chronic cough, some vague aches and pains in the thoracic spine. CT of the chest showed a left infrahilar mass abutting the cardiac atrium, the mass is 3.6 cm in size. . Patient describes about 15 pound weight loss over the last 2 years, describes chronic cough which is nonproductive, denies any hemoptysis, denies any chest pain, but he does have pain over the thoracic spine which is chronic. At least 3 months in duration. Patient has been a smoker over the years, he is at least a [id number] smoker, and he is now to 10 cigarettes per day. He has a preserved lung capacity with an FEV1 of 75% of predicted. He underwent a PET scan that was done on 05/22/2018 and the PET scan showed marked increased uptake in the infrahilar mass compatible with neoplasm. The patient has a left infrahilar mass which is estimated to be around 4.3 cm in diameter. There is another 7 mm nodular density in the periphery of the right lower lung leahy. This is probably inflammatory in nature. The mass is quite large and is invading the mediastinum, abutting the descending aorta and the posterior heart border and causing problems some mass effect on the esophagus. No reported dysphagia or swallowing difficulties. The patient is having dull aching pain in the left posterior chest area. I referred this patient for CV surgery in consultation for a left lower lobe resection. I was concerned that this is a T4 lesion. I had further discussions with Dr. Zuluaga. Based on discussion, we decided to undergo lobectomy at least give this patient a surgical chance. The surgery was done today. The patient underwent a left thoracotomy, left lower lobectomy, mediastinal lymph node dissection, resection of the left atrium at the insertion of the left inferior pulmonary vein and cryoablation of the left intercostal nerve 3,4,5,6,7.. The estimated blood loss was 500 mL. The patient following that there was brought into the intensive care unit. He was already extubated. The patient had epidural Dilaudid and bupivacaine for pain control. He is on 10 L of oxygen nasal cannula. Pulse ox 95%. Chest x-ray showing left lower lobectomy changes. The patient is a left-sided chest tube in place and there is no evidence of any air leak or pneumothorax. The patient is hemodynamically stable at this point in time. He is on DuoNeb nebulized treatments around the clock. He is on IV antibiotic prophylaxis. He is on heparin subcu for DVT prophylaxis. On 06/04/2018 patient seen in follow-up in intensive care unit, he is awake and alert, oriented 3, in no acute distress, this is postop day 1 status post left thoracotomy, left lower lobe mass resection, left atrium resection at the level of the insertion of the left pulmonary artery. She has a left-sided chest tube in place, to waterseal, no air leak noted, and there is a total of 430 of serosanguineous output in the Pleur-evac. Drainage from the chest tube is thin and watery, continues to smoke morning. Lung sounds are positive for scattered rhonchi at the left lower lobe, and has effective cough, he is producing moderate to large amount of thick yellow sputum. Incentive spirometer effort is 750 ML today. His chest x-ray has been reviewed with Dr. Klein, showed postoperative changes with subcutaneous emphysema on the left but no sizable pneumothorax, bilateral postoperative atelectasis. Biopsy results are still pending. Today's lab work has been reviewed, white blood cell count of 17.0, hemoglobin is 12.2, sodium is 136, the rest of electrolytes are within normal limits, B1 is 20 and creatinine 0.60. Fluids D5 at a rate of 40 ML per hour, this rhythm on the monitor with a rate of 67, hemodynamic patient is stable. Bupivacaine and Dilaudid at a rate of 10 ML per hour On O2 2018 patient seen in follow-up on selective care unit, he is sitting up in bed, in no acute distress, his left-sided chest tube has been discontinued , this is postoperative day #4 status post left thoracotomy, with left lower lobe mass resection, left atrium resection at the level of the intersection of the left pulmonary artery. Today's chest x-ray has been reviewed with Dr. Klein, and it shows diffuse soft tissue emphysema. Left basilar infiltrate and small effusion. Room air pulse ox is 95%, patient is afebrile, hemodynamically stable, lung sounds are diminished breath sounds in the left base, some limited rales. Patient is working on his incentive spirometer. His been ambulating, tolerating activity well. His labs have been reviewed, blood blood cell count is 10.1, hemoglobin is 7.4, electrolytes and renal profile were unremarkable. Objective - Vital Signs Vital signs: Vital Signs Temp 96.6 F L 06/07/18 08:00 Pulse 84 06/07/18 11:56 Resp 15 06/07/18 04:00 BP 131/72 06/07/18 08:00 Pulse Ox 95 06/07/18 08:00 Intake & Output 06/06/18 06/07/18 06/07/18 18:59 06:59 18:59 Intake Total 240 456 Output Total 600 Balance 240 -600 456 Weight 65.2 kg Intake: Oral 240 456 Output: Urine 600 Other: Voiding Method Indwelling Catheter # Voids 3 2 1 ABP, PAP, CO, CI - Last Documented Arterial Blood Pressure 121/64 - Exam GENERAL EXAM: Alert, active, comfortable in no apparent distress. HEAD: Normocephalic/atraumatic. EYES: Normal reaction of pupils, equal size. Conjunctiva pink, sclera white. NOSE: Clear with pink turbinates. THROAT: No erythema or exudates. NECK: No masses, no JVD, no thyroid enlargement, no adenopathy. CHEST: No chest wall deformity. Symmetrical expansion. Interval removal of the left-sided chest tube, there is some limited's serous drainage from the left chest tube insertion site, is currently covered with a dressing LUNGS: Equal air entry with left basilar rhonchi CVS: Regular rate and rhythm, normal S1 and S2, no gallops, no murmurs, no rubs ABDOMEN: Soft, nontender. No hepatosplenomegaly, normal bowel sounds, no guarding or rigidity. EXTREMITIES: No clubbing, no edema, no cyanosis, 2+ pulses and upper and lower extremities. MUSCULOSKELETAL: Muscle strength and tone normal. SPINE: No scoliosis or deformity SKIN: No rashes CENTRAL NERVOUS SYSTEM: Alert and oriented -3. No focal deficits, tone is normal in all 4 extremities. PSYCHIATRIC: Alert and oriented -3. Appropriate affect. Intact judgment and insight. - Labs CBC & Chem 7: 06/07/18 06:05 06/07/18 06:05 Labs: Abnormal Lab Results - Last 24 Hours (Table) 06/07/18 06/07/18 Range/Units 06:05 06:05 RBC 3.63 L (4.30-5.90) m/uL Hgb 11.4 L (13.0-17.5) gm/dL Hct 33.9 L (39.0-53.0) % Creatinine 0.57 L (0.66-1.25) mg/dL Glucose 108 H (74-99) mg/dL Microbiology - Last 24 Hours (Table) 06/04/18 10:30 Gram Stain - Final Sputum Sputum Culture - Final Moraxella(branhamella) catarra Assessment and Plan Plan: 1 left thoracotomy, left lower lobe resection, resection of the left atrium at the insertion of left inferior pulmonary vein. The patient is postop day #4. Estimated blood loss was 750 mL 2 left lung mass, likely malignant, likely primary bronchogenic cancer 3 COPD mild currently inactive in stable 4 post thoracotomy pain currently on the Dulera bupivacaine and lotted for pain control 5 history of smoking 6 weight loss 7 hypertension 8 hyperlipidemia Plan: Patient is doing well, tolerating ambulation, he is on room air, but no signs are stable, no pathology of the left lung mass total pending at this time, today 's chest x-ray has been reviewed by Dr. Klein, showed some left basilar infiltrate and small effusion, no pneumothorax. She is being discharged home today, follow up with Dr. Klein in the office in 7-10 days I performed a history & physical examination of the patient and discussed their management with my nurse practitioner, Wendy Salamanca. I reviewed the nurse practitioner's note and agree with the documented findings and plan of care. Lung sounds are positive for basilar rhonchi. The findings and the impression was discussed with the patient. I attest to the documentation by the nurse practitioner. Time with Patient: Less than 30
--- NOTE | 2018-06-10 09:25 | CDI ---
Documentation Clarification Form Date: 06.10.18 From: Lauren WILSON Phone: If you have question, contact Tiffani Quiñonez at [phone] M-F 8:30 am to 6pm Admit Date: 06/03/2018 6:52:00 AM Patient Name: Alan Aldana Visit Number: [id number] Discharge Date: 06/07/2018 12:20:00 PM ATTENTION: The Clinical Documentation Specialists (CDI) and [facility] Coding Staff appreciate your assistance in clarifying documentation. Please respond to the clarification below the line at the bottom and electronically sign. The CDI & [facility] Coding staff will review the response and follow-up if needed. Please note: Queries are made part of the Legal Health Record. If you have any questions, please contact the author of this message via ITS. Dr. 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 Patient history/risk factors: LLL squamous cell carcinoma In your professional opinion, do you concur with the pathology report specifying lymph node involvement of squamous cell carcinoma and would like to add this to your final diagnoses for this patient? Yes No Other (please specify) Unable to determine yes MTDD
== END 2018-06-07 12:20 | disposition home or self-care (01) | DRG 164 ==
LOC: 2ORMAIN 06:52 → 2SICU 14:05 → 3SCARD 06-05 18:51
PROVIDERS: ADMIT Thoracic Surgery (Cardiothoracic Vascular Surgery); ATTEND Thoracic Surgery (Cardiothoracic Vascular Surgery)
PROC: 07T70ZZ Resection of Thorax Lymphatic, Open Approach (ICD-10-PCS; 2018-06-03)
PROC: 0BTJ0ZZ Resection of Left Lower Lung Lobe, Open Approach (ICD-10-PCS; principal; 2018-06-03 08:45)
DX: C34.32 Malignant neoplasm of lower lobe, left bronchus or lung (principal); C77.1 Secondary and unspecified malignant neoplasm of intrathoracic lymph nodes; J44.9 Chronic obstructive pulmonary disease, unspecified; E78.5 Hyperlipidemia, unspecified; F17.210 Nicotine dependence, cigarettes, uncomplicated; G89.29 Other chronic pain; M54.9 Dorsalgia, unspecified; I10 Essential (primary) hypertension; J98.2 Interstitial emphysema; R09.3 Abnormal sputum; B96.89 Other specified bacterial agents as the cause of diseases classified elsewhere; Z79.899 Other long term (current) drug therapy; Z82.49 Family history of ischemic heart disease and other diseases of the circulatory system; Z80.0 Family history of malignant neoplasm of digestive organs; Z71.6 Tobacco abuse counseling
CPT/HCPCS: 71045; 71046; 80048; 80053; 83735; 85025; 85027; 86850; 86900; 86901; 87070; 87205; 88305; 88307; 88309; 88312; 94640

== ENCOUNTER → 2019-01-10 | Outpatient (CLI) | payer BC ==
--- NOTE | 2019-01-10 14:56 | CT ---
EXAMINATION TYPE: CT chest w con DATE OF EXAM: 01/10/2019 COMPARISON: Radiograph 06/25/2018 and PET/CT 05/22/2018 HISTORY: 58-year-old male Lung CA TECHNIQUE: Contiguous axial scanning of the chest after the administration of 100 mL of Isovue 300. Coronal/sagittal reconstructions performed. CT DLP: 466mGycm. Automatic exposure control utilized for a dose reduction. FINDINGS: Heart normal size without pericardial effusion. Scattered coronary vessel calcifications are present. Ectatic aortic root at 3.7 cm. Mild atherosclerotic arch calcifications and conventional arch vessel branching anatomy. Ectatic/mildly aneurysmal upper descending thoracic aorta at 3.5 cm. Enlarged caliber to the main right and left pulmonary arteries at 2.6 and 2.9 cm, respectively, sugge sting underlying pulmonary arterial hypertension. Enlarged right and left hilar lymph nodes measuring 1.3 and 1.7 cm. No other thoracic lymphadenopathy by CT size criteria. Mild bilateral gynecomastia. Moderate to advanced centrilobular emphysema. Strandy atelectasis or scarring at the basilar right mi ddle lobe. 6 mm pulmonary nodule posterior right midlung warrants follow-up. Some surgical clips at the GE junction. Visualized upper abdomen shows moderate atelectatic changes i n the abdominal aorta. Bones: Mild degenerative disc disease mid to lower thoracic spine. IMPRESSION: 1. COPD with moderate to advanced emphysema. Underlying pulmonary arterial hypertension. 2. Enlarged bilateral hilar lymph nodes measuring up to 1.7 cm. However, there seems to have been int erval left lobectomy/partial left pneumonectomy. The previous large left infrahilar mass seen on PET/ CT of 05/22/2018 is no longer identified. There is six-month follow-up to reassess the hilar nodes. 3. 6 mm subpleural pulmonary nodule posterior right midlung is stable for 7 months. Additional short interval follow-up recommended.
== END | disposition home or self-care (01) ==
LOC: RADCTMAIN 10:36
PROVIDERS: ATTEND Internal Medicine Hematology & Oncology
DX: C34.32 Malignant neoplasm of lower lobe, left bronchus or lung (principal); J43.9 Emphysema, unspecified; R91.1 Solitary pulmonary nodule
CPT/HCPCS: 71260; Q9967

== ENCOUNTER → 2019-04-11 | Outpatient (CLI) | payer BC ==
--- NOTE | 2019-04-11 09:43 | CT ---
EXAMINATION TYPE: CT chest w con DATE OF EXAM: 04/11/2019 COMPARISON: CT January 10, 2019 and older outside study May 07, 2018. PET/CT May 22, 2018. HISTORY: Lung CA follow up on chemotherapy and radiation treatment this year CT DLP: 357.9 mGycm. Automated Exposure Control for Dose Reduction was Utilized. TECHNIQUE: CT scan of the thorax is performed following with IV Contrast, patient injected with 100 mL of Isovue 300. FINDINGS: LUNGS: Background moderate to advanced underlying emphysematous changes are redemonstrated. There is stable size 6 mm subpleural nodule right lower lobe axial image 38 though is more groundglass opacity are current study versus prior. Roughly 7 x 4 mm subpleural nodule axial image 44 not significantly changed from May 07, 2018 study with additional smaller right basilar irregular nodule axial imag e 46 near diaphragm also redemonstrated. Dependent atelectasis right lower lobe. No new left-sided no dules or masses. No pleural effusion or pneumothorax. MEDIASTINUM: There are persistent abnormal left hilar lymph nodes with largest near origin of left l ower lobe pulmonary artery measuring approximately 2.0 x 1.4 cm axial image 30. There show progressiv e enlargement from older studies. Increasing mass effect is present Inferior extension is noted. The area of prior neoplasm inferior medial to this posterior to the left atrium near the suspected surgic al clips shows nonspecific fairly stable soft tissue fullness measuring 1.2 x 1.2 cm axial image 38 v ersus most recent study image 36. No cardiomegaly or pericardial effusion is seen. Persistent enlarg ed right and left pulmonary arteries. Adjacent ascending aorta measures up to 3.5 cm in diameter. The re is some prominence of the aortic arch up to 3.4 cm past three-vessel takeoff with mild to moderate peripheral plaque redemonstrated. OTHER: Some exaggerated thoracic kyphosis is redemonstrated. IMPRESSION: Moderate to advanced emphysematous change with postsurgical changes left infrahilar level redemonstrated. No new pulmonary nodules or masses but there is continued enlarging left hilar adeno rian with local mass effect raising concern for recurrent neoplasm and follow-up PET/CT should be st rongly considered.
== END | disposition home or self-care (01) ==
LOC: RADCTMAIN 08:46
PROVIDERS: ATTEND Internal Medicine Hematology & Oncology
DX: C34.32 Malignant neoplasm of lower lobe, left bronchus or lung (principal); J43.9 Emphysema, unspecified; R59.0 Localized enlarged lymph nodes; Z98.890 Other specified postprocedural states
CPT/HCPCS: 71260; Q9967

== ENCOUNTER → 2019-04-30 | Outpatient (CLI) | payer BC ==
--- NOTE | 2019-05-01 14:14 | PE ---
Nuclear medicine PET/CT HISTORY: Lung carcinoma, subsequent Patient received 12 mCi F-18 FDG intravenously in delayed scanning was performed from the skull base to the mid thighs. Localization and attenuation correction CT scan was performed. Correlation to prior nuclear medicine PET/CT dated 05/22/2018 Neck and chest: There is no cervical or supraclavicular adenopathy. No mediastinal, axillary, or elma r adenopathy. No evident pleural effusion. The abnormal attenuation in the posterior left lung base h as resolved. The hypermetabolic uptake and mass in the left hilar region has improved in the interval , no evident mass or residual uptake. Postop changes noted. ABDOMEN: Postop changes are noted the gastroesophageal junction level. No evident adrenal mass or ret roperitoneal adenopathy. No ascites. No evident liver mass. Atheromatous changes are associated with the aorta. There is no pelvic adenopathy. Thickening of the urinary bladder wall may be due to lack o f distention or chronic outlet obstruction, prostate is enlarged. Osseous structures are stable, no suspicious uptake. Spondylolysis is suspected at L5 bilaterally, th ere are degenerative disc changes and facet arthropathy lower lumbar spine. IMPRESSION: No residual suspicious hypermetabolic uptake
== END | disposition home or self-care (01) ==
LOC: RADPETMAIN 07:24
PROVIDERS: ATTEND Radiology Radiation Oncology
DX: C34.32 Malignant neoplasm of lower lobe, left bronchus or lung (principal); Z92.21 Personal history of antineoplastic chemotherapy; Z90.2 Acquired absence of lung [part of]; Z00.6 Encounter for examination for normal comparison and control in clinical research program
CPT/HCPCS: 78815; A9552

== ENCOUNTER → 2019-11-03 | Outpatient (CLI) | payer BC ==
--- NOTE | 2019-11-03 10:16 | CT ---
EXAMINATION TYPE: CT chest w con DATE OF EXAM: 11/03/2019 COMPARISON: Prior CT April 11, 2019 and the older study January 10, 2019 prior PET/CT May. And older study April 30, 2019 HISTORY: Follow up scan CT DLP: 343.2 mGycm. Automated Exposure Control for Dose Reduction was Utilized. TECHNIQUE: CT scan of the thorax is performed following with IV Contrast, patient injected with 100 mL of Isovue 300. FINDINGS: LUNGS: Background moderate to borderline advanced underlying emphysematous change. No new nodules or masses. No recurrent nodule or mass at area of primary neoplasm medial left lower lobe infrahilar lev el. Stable 8 x 7 mm nodule right lower lobe axial image 41 unchanged from May 07, 2018 CT. No ple ural effusion or pneumothorax seen bilaterally. There is low dense soft tissue left hilar region the level of the left lower lobe pulmonary artery beginning axial image 30, I suspect chronic peripheral nonocclusive thrombus. Just inferior to the surgical clips are seen near axial image 36. This is new finding from original outside CT May 07, 2018 and is PET negative April 30, 2019 making abnorma l adenopathy unlikely. This is not significantly changed from the most recent two CTs. MEDIASTINUM: There are no new greater than 1 cm hilar or mediastinal lymph nodes. No cardiomegaly o r pericardial effusion is seen. Coronary artery calcification is redemonstrated which is noted marke d underlying coronary artery disease. OTHER: Bilateral gynecomastia again seen. Incidental accessory right renal artery. Mild to moderate m ixed plaque in aorta. Slight scoliotic curvature. IMPRESSION: No new recurrent mass or adenopathy. Note is made of suspected chronic nonocclusive throm bus near site of surgery.
== END | disposition home or self-care (01) ==
LOC: RADCTMAIN 09:24
PROVIDERS: ATTEND Internal Medicine Hematology & Oncology
DX: C34.32 Malignant neoplasm of lower lobe, left bronchus or lung (principal)
CPT/HCPCS: 71260; Q9967

== ENCOUNTER → 2020-05-03 | Outpatient (CLI) | payer BC ==
--- NOTE | 2020-05-03 09:46 | CT ---
EXAMINATION TYPE: CT chest w con DATE OF EXAM: 05/03/2020 COMPARISON: 11/03/2019 and 04/11/2019 HISTORY: 59-year-old male C34.32, lung cancer, Z03.89, observation for metastases. TECHNIQUE: Contiguous axial scanning of the chest after the administration of 100 mL of Isovue 300. Coronal/sagittal reconstructions performed. CT DLP: 336mGycm. Automatic exposure control utilized for a dose reduction. FINDINGS: Heart normal size without pericardial effusion. LAD and RCA coronary calcifications are present. Mildly aneurysmal upper descending thoracic aorta 3.5 cm. Mild/moderate atherosclerotic arch calcific ations with conventional chest branching anatomy. Large caliber to the main right and left pulmonary arteries at 3.0 and 2.5 cm, respectively, suggesti ng underlying pulmonary arterial hypertension. There is new mural based filling defect along the ante rior wall of the right middle lobar pulmonary artery, refer to axial image 36. Some surgical clips in the left infrahilar region. Left infrahilar soft tissue just adjacent measures 2.7 x 2.3 cm versus 2.5 x 2.1 cm on 11/03/2019 and 2.6 x 2.4 cm on 04/11/2019. Mild bilateral gynecomastia. Moderate to advanced upper emphysema particularly in the upper and mid lungs. A couple subpleural pulmonary nodules in the right lower lobe, axial image 39 and 43 are unchanged fr om 11/03/2019. No pleural effusion. Tiny hiatal hernia. Some surgical clips at the GE junction. Bones: Mild degenerative disc disease lower thoracic spine. IMPRESSION: 1. COPD with moderate to advanced emphysema and pulmonary arterial hypertension. Note chronic mural-b ased pulmonary embolus within the right middle lobar pulmonary artery, though new from 11/03/2019. Cor relate as to if the patient needs treatment. 2. Left infrahilar postsurgical change redemonstrated. Adjacent soft tissue measures 2.7 x 2.3 cm (ve rsus 2.5 x 2.1 cm, previously). This change is not felt to be significant at this time. Continued fol low-up recommended. Right hilar lymph node at 2.4 cm is unchanged. 3. A couple 7 mm subpleural pulmonary nodules in the right lower lobe remain unchanged from 11/03/2019 .
== END | disposition home or self-care (01) ==
LOC: RADCTMAIN 08:31
PROVIDERS: ATTEND Internal Medicine Hematology & Oncology
DX: Z03.89 Encounter for observation for other suspected diseases and conditions ruled out (principal); C34.32 Malignant neoplasm of lower lobe, left bronchus or lung; J44.9 Chronic obstructive pulmonary disease, unspecified; I27.21 Secondary pulmonary arterial hypertension; I27.82 Chronic pulmonary embolism; R91.8 Other nonspecific abnormal finding of lung field; Z98.890 Other specified postprocedural states
CPT/HCPCS: 71260; Q9967

== ENCOUNTER → 2020-11-01 | Outpatient (CLI) | payer BC ==
--- NOTE | 2020-11-01 11:00 | CT ---
EXAMINATION TYPE: CT chest w con DATE OF EXAM: 11/01/2020 COMPARISON: 05/03/2020 HISTORY: Lung cancer CT DLP: 583 mGycm Automated exposure control for dose reduction was used. CONTRAST: CT scan of the chest is performed with IV Contrast, patient injected with 100 mL of Isovue 300. FINDINGS: LUNGS: Left infrahilar surgical clips present left infrahilar soft tissue noted adjacent to the clips currently measures 2.2 x 1.6 cm versus 2.7 x 2.3 cm previously. Right lower lobe pulmonary nodules a re stable measuring 7 mm versus 7.2 mm previously and 6.5 mm versus 6.7 mm previously. MEDIASTINUM: There are no greater than 1 cm hilar or mediastinal lymph nodes. No pericardial effusi on is seen. Thoracic aorta is of normal caliber. The heart is not enlarged. UPPER ABDOMEN: There is evidence of hepatic steatosis. OTHER: No additional significant abnormality is seen. IMPRESSION: 1. Left infrahilar soft tissue is slightly smaller in size relative to the prior study. 2. Stable pulmonary nodules right lower lobe.
== END | disposition home or self-care (01) ==
LOC: RADCTMAIN 09:58
PROVIDERS: ATTEND Internal Medicine Hematology & Oncology
DX: C34.90 Malignant neoplasm of unspecified part of unspecified bronchus or lung (principal); R91.8 Other nonspecific abnormal finding of lung field
CPT/HCPCS: 71260; Q9967

== ENCOUNTER → 2021-01-11 | Outpatient (CLI) | payer BC ==
--- NOTE | 2021-01-11 13:05 | PE ---
EXAMINATION TYPE: PET CT fusion skull to thigh DATE OF EXAM: 01/11/2021 COMPARISON: Prior PET/CT April 30, 2019 and older studies. Most recent chest CT November 01, 2020. HISTORY: Lung cancer progress study TECHNIQUE: Following the intravenous administration of 12.33 mCi of F-18 FDG, whole body images are performed from the skull base to the midthigh. Images are reviewed on the computer in the coronal, a xial, and sagittal planes. Reconstructed rotating images are created on independent workstation and reviewed on the computer. A localization and attenuation correction CT is performed in conjunction with the PET scan. Blood glucose level equals 89. SCAN: Subsequent Scan FINDINGS: SKULL BASE AND NECK: No new areas of abnormal hypermetabolic uptake. CHEST, MEDIASTINUM, AND HILAR REGION: Background mild to moderate underlying emphysematous change is redemonstrated. Stable mild bilateral hilar uptake. No new areas of abnormal hypermetabolic uptake. T reatment changes left infrahilar level redemonstrated with surgical clips. Mild/moderate right basila r linear scarring and/or atelectasis. Some small right basilar nodules for reference 7 mm subpleural nodule axial image 106 shows no suspicious hypermetabolic uptake. No new areas of abnormal hypermetab olic uptake. ABDOMEN AND PELVIS: No new adrenal masses. No new areas of abnormal hypermetabolic uptake. OSSEOUS STRUCTURES: No new areas of abnormal hypermetabolic uptake. OTHER CT: Nasal septum remains deviated to left of midline. Moderate calcified plaque bilateral carot id bulb level redemonstrated. Low lung volumes with elevated right hemidiaphragm redemonstrated. Fairly severe three-vessel coronar y artery calcification again seen. Prominent right and left pulmonary arteries consistent with underl kyle pulmonary artery hypertension. Small degree of subareolar gynecomastia bilaterally redemonstrate d. Surgical changes from recent fundoplication surgery at diaphragmatic hiatus redemonstrated. Mild diff use fatty infiltration of liver is seen. Moderate to severe calcified plaque of the aorta extends int o branch vessels. Normal-appearing appendix. Sigmoid colonic diverticulosis. Enlarged prostate consis tent with BPH. Bilateral pars defect with grade 1 anterolisthesis L5 on S1. Moderate disc space narrowing and vacuum disc phenomenon lumbosacral junction. IMPRESSION: No new areas of abnormal hypermetabolic uptake to suggest active recurrent malignancy. Co ntinued CT monitoring for subcentimeter right basilar pulmonary nodules advised.
== END | disposition home or self-care (01) ==
LOC: RADPETMAIN 08:52
PROVIDERS: ATTEND Radiology Radiation Oncology
DX: C34.32 Malignant neoplasm of lower lobe, left bronchus or lung (principal); R91.1 Solitary pulmonary nodule
CPT/HCPCS: 78815; A9552

== ENCOUNTER → 2021-10-16 | Outpatient (CLI) | payer BC ==
--- NOTE | 2021-10-16 13:13 | CT ---
EXAMINATION TYPE: CT chest w con CT DLP: 348.5 mGycm, Automated exposure control for dose reduction was used. DATE OF EXAM: 10/16/2021 10:41 AM COMPARISON: Multiple CTs of the chest with most recent on 11/01/2020, PET/CT 01/11/2021. CLINICAL INDICATION:Male, 61 years old with history of C34.32 Lung Cancer Z03.89 Suspected Mets; Hx of lung CA, partial left lung removal in May TECHNIQUE: Multiple axial images were obtained through the chest following the administration of 100 cc of Isovue 300. FINDINGS: LUNGS/ PLEURA: Right lower lobe pulmonary nodules are again seen the larger now measuring 10 mm, prev iously 8 mm. (Image 30 series 7) additional more lateral pulmonary nodule in the right lower lobe jj suring 10 mm is larger than prior where it measured 8-9 mm. Additionally there is been increase in size of a cavitary lesion with peripheral nodularity totality measuring 16 x 11 mm, previously 10 x 8 mm. Solid nodular component has increased in size on today's exam measuring 12 x 9 mm previously 3 mm. There is moderate emphysema changes throughout the lungs. No evidence focal consolidation, pneumothor ax or pleural effusion. AIRWAY: Patent and unremarkable.. HEART: Moderate to severe coronary artery atherosclerosis. MEDIASTINUM: No gross evidence of adenopathy. VASCULATURE: No aortic aneurysm. MUSCULOSKELETAL: No acute osseous abnormalities SOFT TISSUES/LYMPH NODES: Unremarkable. LOWER NECK: No significant findings. UPPER ABDOMEN: No significant findings. IMPRESSION: 1. Increase in size of medial right lower lobe superior segment nodule which demonstrates cavitation with peripheral nodularity on today's exam. Nuclear medicine PET scan is recommended for further niru luation. 2. Minimally increased in size of right lower lobe pulmonary nodules compared to recent prior 021. 3. Moderate centrilobular emphysema changes.
== END | disposition home or self-care (01) ==
LOC: RADCTMAIN 09:55
PROVIDERS: ATTEND Internal Medicine Hematology & Oncology
DX: R91.8 Other nonspecific abnormal finding of lung field (principal); J43.2 Centrilobular emphysema
CPT/HCPCS: 71260; Q9967

== ENCOUNTER → 2022-01-17 | Outpatient (CLI) | payer BC | END | disposition home or self-care (01) | LOC: RADPETMAIN 09:26 | PROVIDERS: ATTEND Internal Medicine Hematology & Oncology | DX: C34.32 Malignant neoplasm of lower lobe, left bronchus or lung (principal) | CPT/HCPCS: 78815; A9552 ==

== ENCOUNTER → 2022-07-21 | Outpatient (CLI) | payer BC ==
--- NOTE | 2022-07-21 21:09 | CT ---
EXAMINATION TYPE: CT chest w con DATE OF EXAM: 07/21/2022 COMPARISON: 10/16/2021 HISTORY: FOLLOW UP FOR LUNG CA CT DLP: 390.2 mGycm, Automated exposure control for dose reduction was used. CONTRAST: Performed injected with 70 mL of Isovue 300. TECHNIQUE: Axial images were obtained at 5 mm thick sections. Reconstructed images are reviewed on [employer] computer in the coronal plane. FINDINGS: Portion of the thyroid visualized is normal. There is an irregular mass with a central cavitation measuring 1.6 cm. This is larger than the 1.4 cm previous imaging located in the azygos esophageal recess. Series 4 image 28. A 1.0 cm nodule is in the posterior lateral right midlung. Series 4 image 32. This is larger than the prior exam. There is a 1.0 cm nodule along the posterior lateral right lung. Series 4 image 37. This is similar t o the 0.9 cm on prior exam. No enlarged mediastinal or hilar adenopathy is evident. There are scattered lymph nodes within the bilateral axilla. A few small pretracheal lymph nodes are present. There is a somewhat prominent subc arinal lymph node measuring 0.9 cm which is not enlarged by CT criteria. Small right hilar lymphadeno rian is likely present. There may be some soft tissue thickening in the left infrahilar region. The ascending aorta diameter at the level of the main pulmonary artery is 3.1 cm. The main pulmonary artery diameter at the bifurcation is 3.[address] sections are obtained through the upper abdomen. There appears to be some fatty infiltrati on of the liver. IMPRESSIONS: 1. Right lung nodules slightly increased in size from the prior examination.
== END | disposition home or self-care (01) ==
LOC: RADCTMAIN 09:26
PROVIDERS: ATTEND Internal Medicine Hematology & Oncology
DX: C34.32 Malignant neoplasm of lower lobe, left bronchus or lung (principal); E78.5 Hyperlipidemia, unspecified; I10 Essential (primary) hypertension; R91.8 Other nonspecific abnormal finding of lung field; G47.00 Insomnia, unspecified
CPT/HCPCS: 71260; Q9967

== ENCOUNTER → 2023-07-30 | Outpatient (CLI) | payer BC ==
--- NOTE | 2023-07-30 19:12 | PE ---
EXAMINATION TYPE: PET CT fusion skull to thigh DATE OF EXAM: 07/30/2023 CLINICAL INDICATION:Male, 63 years old with history of C34.32 LUNG CANCER; TECHNIQUE: Following the intravenous administration of 926 2 mCi of F-18 FDG, whole body images are performed from the skull base to the midthigh. Images are reviewed on the computer in the coronal, axial, and sagittal planes. Reconstructed rotating images are created on independent workstation and reviewed on the computer. A non-contrast CT is performed in conjunction with the PET scan. Glucose level 93 mg/dL CT DLP: 448 mGycm, Automated exposure control for dose reduction was used. COMPARISON: CT 07/21/2022, PET/CT 01/23/2023, FINDINGS: Mediastinal SUV mean is 2.7. Hepatic parenchyma SUV mean is 3.4. SKULL BASE AND NECK: No suspicious radiotracer activity. CHEST, MEDIASTINUM, AND HILAR REGION: Abnormal FDG activity within the chest occluding right lower lung medial cavitary lesion measuring 25 x 23, previously 21 x 18 mm. Max SUV 7.3, previously 3.2. Increased uptake within the mediastinal lymph nodes max SUV of the right pulmonary hilum 5.3, previou sly 2.8, and of the left pulmonary hilum 8.8, previously 3.5. ABDOMEN AND PELVIS: No suspicious radiotracer activity. MUSCULOSKELETAL STRUCTURES: No suspicious radiotracer activity. OTHER CT: Atherosclerosis of the carotid bifurcations. There is moderate to severe coronary artery at herosclerosis.e Hepatic steatosis. Severe atherosclerosis of the arterial vasculature. Scattered colo maciej diverticula. Fatty changes inguinal canal.r prostatomegaly. IMPRESSION: Findings compatible with progression of disease with increasing size of right lower lobe medial cavit krystyna lesion with increasing FDG activity in the bilateral pulmonary hilum lymph nodes.
== END | disposition home or self-care (01) ==
LOC: RADPETMAIN 10:04
PROVIDERS: ATTEND Internal Medicine Hematology & Oncology
DX: C34.32 Malignant neoplasm of lower lobe, left bronchus or lung (principal); R91.8 Other nonspecific abnormal finding of lung field
CPT/HCPCS: 78815; A9552

== ENCOUNTER 2023-08-27 08:23 | Day surgery (SDC) | payer MEDICARE, BC ==
[2023-08-20 12:54] VITALS: BMI 24.6
[~2023-08-27 08:23] MED LIST changes: -DEXAMETHASONE SOD PHOSPHATE 10 MG/ML 1 ML VIAL IV ONE; +LIDOCAINE 1% (10MG/ML) FOR IV START INTRADERMA PRN; -ONDANSETRON 4 MG/2 ML VIAL IVP ONE; -SCOPOLAMINE 1.5MG/72HR PATCH TRANSDERM ONE; -ceFAZolin IN SWFI 2 GM/20 ML SYRINGE IVP ONE
[2023-08-27] MEDS: LACTATED RINGERS 1,000 ML IV SCH (08:59)
[2023-08-27] MEDS: DEXAMETHASONE SOD PHOSPHATE 4 MG/ML 1 ML VIAL IV ONE (09:11)
[2023-08-27] MEDS: ONDANSETRON 4 MG/2 ML VIAL IVP ONE (09:11)
[2023-08-27] MEDS ORDERED: SUCCINYLCHOLINE CHLORIDE 200 MG/10 ML VIAL IV ONE (10:26)
[2023-08-27] MEDS ORDERED: ePHEDrine 50 MG/ML 1 ML VIAL ONE (10:26)
[2023-08-27] MEDS ORDERED: fentaNYL (PF) 50 MCG/ML 2 ML AMP ONE (10:26)
[2023-08-27] MEDS ORDERED: GLYCOPYRROLATE 0.2 MG/ML 2 ML VIAL ONE (10:26)
[2023-08-27] MEDS ORDERED: MIDAZOLAM 2 MG/2 ML VIAL ONE (10:26)
[2023-08-27] MEDS ORDERED: LIDOCAINE 2% (PF) 20 MG/ML 5 ML VIAL ONE (10:26)
[2023-08-27] MEDS ORDERED: PROPOFOL 10 MG/ML 20 ML VIAL IV ONE (10:26)
[2023-08-27] MEDS ORDERED: ROCURONIUM 10 MG/ML (5 ML VIAL) IV ONE (10:26)
[2023-08-27] MEDS ORDERED: WATER FOR INJECTION, STERILE 10 ML VIAL IV ONE (10:26)
[2023-08-27] MEDS ORDERED: PHENYLEPHRINE-0.9% NACL SYG 1,000 MCG/10 ML SYRINGE ONE (10:26)
[2023-08-27] MEDS ORDERED: NEOSTIGMINE 1 MG/ML 10 ML VIAL ONE (10:26)
--- NOTE | 2023-08-27 11:59 | FL ---
EXAMINATION TYPE: FL bronchoscopy Intraoperative/procedural fluoroscopic services were provided. Tota l fluoroscopy time is 1 minute 30 seconds with a total of 5 submitted images to PACS. Please see the operative/procedural note for further details. DAP: 6.5271 Gycm2
--- NOTE | 2023-08-27 12:13 | P.PCN ---
Date of Procedure: 08/27/23 Operative Findings: Operative Findings: Preoperative Diagnosis: Right lower lobe pulmonary nodule, 25x 22 mm, PET Avid Mediastinal lymphadenopathy, left hilar History of squamous cell lung cancer and previous left lower lobectomy, rule out recurrence Postoperative Diagnosis: Right lower lobe pulmonary nodule, 25x 22 mm, PET Avid Mediastinal lymphadenopathy, left hilar History of squamous cell lung cancer and previous left lower lobectomy, rule out recurrence Procedure(s) Performed: Flexible bronchoscopy Robotic-assisted bronchoscopy and addition to radial ultrasound evaluation of t he right lower lobe pulmonary nodule Robotic-assisted transbronchial needle aspirate, transbronchial biopsies and transbronchial brushing of a right lower lobe pulmonary nodule in addition to a bronchioloalveolar lavage Endobronchial ultrasound TBNA of the station left hilar lymph nodes Anesthesia: YOBANYA Surgeon: Heidi Klein Estimated Blood Loss (ml): 0 Pathology: other Condition: stable Disposition: same day Operative Findings: A physical exam was performed. Informed consent was obtained from the patient after explaining all the risks (pneumothorax, life threatening bleeding, infection and adverse effects due to medications), benefits and alternatives to the procedure which the patient appeared to understand and so stated. The patient was connected to the monitoring devices. General anesthesia was induced and the patient was intubated by anesthesia. A final timeout was performed and the procedure confirmed by the attending staff bronchoscopist. The bronchoscope was inserted and the airway examined. Examination was essentially within normal limits. Limited respiratory secretions were identified and was suctioned out without any major difficulties. Left lower lobe stump was within normal limits. No significant abnormalities noted. The flexible bronchoscope was removed and the robotic bronchoscope was inserted. Registration was completed. I next guided the robotic bronchoscope using the navigation system into the right lower lobe superior segment. Once in proper position, the bronchoscope was frozen. The radial EBUS probe was placed through the bronchoscope and confirmed abnormal u/s images vs normal lung. A needle was placed through the working channel and under fluoroscopic guidance, we sampled the area thought to have the mass twice. We then used a cloud biopsy pattern with ultrasound confirmation for 2 additional passes with the needle. U/S evaluation was then used to reconfirm location. Forceps were next introduced through working channel and extended the appropriate distance and 3 transbronchial biopsies were performed using fluoroscopic guidance. The u/s probe was then reinserted to confirm location. When confirmed this process was repeated for a total of 8-10 transbronchial biopsies. After reassessment with EBUS, a brush was placed through the extendable working channel for 1 pass with fluoroscopic guidance. U/S evaluation was then used to confirm location. 40ml of saline was then instilled into the area of the lesion. The robotic bronchoscope was removed and the airway inspected with a flexible bronchoscope and 10 ml of effluent from the BAL was collected. The aspirate was bloody and ultimately declotted and based on that, the sample was discarded. Endobronchial ultrasound was done with mediastinal lymph node evaluation. A detailed evaluation of the mediastinal lymph nodes was done using endobronchial ultrasound. Based on examination, there was a left hilar lymph nodes adjacent to the left upper lobe pulmonary artery branch. I did not access the left hilar lymph node was not adequately visualized. I was able to pass a 22 gauge VIZI shot needle very close to the pulmonary artery and vessels of the lymph node and a total of 2 passes were taken. No bleeding was encountered. Rest of the mediastinal stations were essentially negative. No significant pathologic adenopathy. Endobronchial ultrasound was removed. Flexible bronchoscope was introduced and have regular suctioning was done and the airway was evacuated from any residual bloody secretions. The flexible bronchoscope was 1 and the patient was extub ated and transferred to recovery in stable condition. Chest x-rays to follow. FINDINGS: 1.The airways appeared normal 2 Successful navigation, ultrasonographic identification, and biopsies of right lower lobe pulmonary nodule and sampling of the left hilar lymph node. 3.The the radial ultrasound view was concentric RECOMMENDATIONS: Await pathology and cytology results The referring physician will be alerted to the results when available. The patient was advised to follow up with the referring physician with the biopsy results Patient will be called with results.
--- NOTE | 2023-08-27 12:59 | XR ---
EXAMINATION TYPE: XR chest 1V portable DATE OF EXAM: 08/27/2023 12:36 PM CLINICAL INDICATION:Male, 63 years old with history of POST BRONCH; [facility] COMPARISON: Chest radiographs from 06/07/2018 TECHNIQUE: XR chest 1V portable Frontal view of the chest. FINDINGS: Lungs/Pleura: There is flattening of the diaphragm with increased lucency of the lungs. No evidence o f pneumothorax, pleural effusion or focal consolidation. Pulmonary vascularity: Unremarkable. Heart/mediastinum: Cardiomediastinal silhouette is unremarkable. Musculoskeletal: No acute osseous pathology. Other findings: None IMPRESSION: 1. No acute cardiopulmonary disease process. 2. COPD changes.
[2023-08-27 13:08] VITALS: PULSE 71; RESP 16; TEMP 97
[2023-08-27 14:09] VITALS: BP 126/73
--- NOTE | 2023-08-27 17:17 | CT ---
EXAMINATION TYPE: CT chest wo con DATE OF EXAM: 08/27/2023 COMPARISON: CT chest dated 07/21/[address] PET dated 07/30/2023 HISTORY: pre bronchial navigation CT DLP: 520 mGycm. Automated Exposure Control for Dose Reduction was Utilized. TECHNIQUE: CT scan of the thorax is performed without IV contrast. FINDINGS: There are moderate emphysematous changes. There is a 3.1 x 1.9 cm mass with cavitation in the right lower lobe which demonstrate abnormal incre ased uptake on the PET scan dated 07/30/2023 and is highly suspicious for neoplasm. There are 3 additional right lower lobe subpleural parenchymal nodules all measuring approximately 9- 10 mm in size. 2 other nodules are stable compared to the chest CT dated 07/21/2022. One of the nodule s adjacent to the hemidiaphragm laterally was not present on the prior study. Small focal partially consolidated subpleural parenchymal density in the right lung base posteriorly which is not present previously and could represent pneumonic infiltrate, neoplasm or atelectasis. There are no left lung nodules or masses. After no pleural effusions or pneumothorax. The heart size is normal and the great vessels chest are normal. Evaluation for mediastinal and hilar adenopathy is limited due to lack of IV contrast but no that hil ar adenopathy was noted on the prior PET CT scan dated 07/30/2023. Limited scanning through the upper abdomen reveals no gross abnormality. No focal osseous lesions are seen. IMPRESSION: 1. Right lower lobe lung mass highly suspicious for neoplasm as described above. There are multiple s maller nodules in the right lung base which could represent satellite lesions. 2. Moderate emphysematous changes. 3. Lack of IV contrast limits evaluation for hilar adenopathy which has been described previously but cannot be evaluated on the current study.
== END 2023-08-27 13:29 | disposition home or self-care (01) ==
LOC: ORWHC2ENDO 08:23
PROVIDERS: ATTEND Internal Medicine Critical Care Medicine
DX: C34.31 Malignant neoplasm of lower lobe, right bronchus or lung (principal); J44.9 Chronic obstructive pulmonary disease, unspecified; I25.2 Old myocardial infarction; I10 Essential (primary) hypertension; E78.5 Hyperlipidemia, unspecified; Z87.891 Personal history of nicotine dependence; Z79.899 Other long term (current) drug therapy; Z90.2 Acquired absence of lung [part of]
CPT/HCPCS: 87798 ×3; 87496; 87498; 87529; 88108; 88305; 88342; 87502; 87634; 88341; 87070; 87205; 87116; 87102; 87206; 87635; 71045; 71250; 31628; 31629; 31623; 31624; 31652; J2250; J0330; J1100; J2710; J2405; J3010; J2704; J2001; J2371; S2900

== ENCOUNTER → 2023-09-14 | Outpatient (CLI) | payer MEDICARE, BC ==
--- NOTE | 2023-09-16 14:44 | MR ---
EXAMINATION TYPE: MR brain wo/w con DATE OF EXAM: 09/14/2023 9:53 PM CLINICAL INDICATION:Male, 63 years old with history of C34.32; [facility], New lung cancer 1 month ago. COMPARISON: None TECHNIQUE: Multi planar, multi sequence imaging was performed through the brain including: T1, T2, In version recovery, susceptibility weighted imaging and gradient echo imaging and Diffusion weighted im aging. The patient was then given intravenous contrast and multi planar, T1 fat-saturation images wer e obtained. IV Contrast: 8.5 cc Gadavist FINDINGS: The maya-white junctions, ventricular system, basal cisterns appear unremarkable. Remote injury to t he right caudate nucleus and right periventricular white matter. Diffusion-weighted imaging shows no evidence of restricted diffusion to suggest acute/subacute infarct. Intracranial arterial flow voids are maintained. Midline structures show no abnormality. Scattered foci of high T2 signal intensity ar e seen within the periventricular white matter. The susceptibility weighted images do not reveal any evidence for micro-hemorrhage. After administration of gadolinium, no abnormal enhancement is seen. The bone marrow signal is within normal limits. Paranasal sinuses and mastoid air cells: No significant paranasal sinus disease. Visualized orbits: Orbital contents are intact. IMPRESSION: 1. No evidence of intracranial mass, acute/subacute infarct, or abnormal enhancement. 2. Nonspecific white matter changes, likely related to small vessel ischemic disease.
== END | disposition home or self-care (01) ==
LOC: RADMRIMAIN 21:15
PROVIDERS: ATTEND Internal Medicine Hematology & Oncology
DX: G93.89 Other specified disorders of brain (principal); C34.32 Malignant neoplasm of lower lobe, left bronchus or lung
CPT/HCPCS: 70553; A9585

== ENCOUNTER → 2023-11-12 | Outpatient (CLI) | payer MEDICARE, BC ==
--- NOTE | 2023-11-12 15:01 | PE ---
EXAMINATION TYPE: PET CT fusion skull to thigh DATE OF EXAM: 11/12/2023 CLINICAL INDICATION:Male, 63 years old with history of C34.31 LUNG CANCER; TECHNIQUE: Following the intravenous administration of 12.36 mCi of F-18 FDG, whole body images are performed from the skull base to the midthigh. Images are reviewed on the computer in the coronal, axial, and sagittal planes. Reconstructed rotating images are created on independent workstation and reviewed on the computer. A non-contrast CT is performed in conjunction with the PET scan. Glucose level 130 mg/dL CT DLP: 433.53 mGycm, Automated exposure control for dose reduction was used. COMPARISON: CT 08/27/2023, 07/21/2022, 10/16/2021, PET/CT 07/30/2023, 01/23/2023, 01/17/2022, MRI: 09/14/2023 FINDINGS: Mediastinal SUV mean is 3.2. Hepatic parenchyma SUV mean is 3.3. SKULL BASE AND NECK: Similar uptake within the bilateral palatine tonsils likely related to inflammat ion/infection. No suspicious radiotracer activity. CHEST, MEDIASTINUM, AND HILAR REGION: Respiratory motion artifact limits evaluation. Decrease size in medial right lower lobe masslike opacity measuring up to 2.5 cm, previously measured up to 3.0 cm. This demonstrate a maximum SUV of 4.5, previously 7.3, 3.2. Decreased focal radiotracer uptake within the right pulmonary hilum lymph nodes with a maximum SUV of 4.2, previously 5.3, 2.8. Slight decrease focal radiotracer uptake within the left pulmonary hilum l ymph nodes with a maximum SUV of 6.1, previously 8.8, 3.5. ABDOMEN AND PELVIS: No suspicious radiotracer activity. MUSCULOSKELETAL STRUCTURES: No suspicious radiotracer activity. OTHER CT: Atherosclerosis of the carotid bifurcations. There is moderate to severe coronary artery at herosclerosis. Hepatic steatosis. Severe atherosclerosis of the arterial vasculature. Infrarenal abdo naz aortic ectasia measuring up to 2.7 cm. Scattered colonic diverticula. Prostatomegaly. Bilateral gynecomastia. IMPRESSION: Positive response to treatment with decrease radiotracer activity within the right medial lobe lung l esion and bilateral pulmonary hilar lymph nodes. No new focal FDG activity.
== END | disposition home or self-care (01) ==
LOC: RADPETMAIN 10:41
PROVIDERS: ATTEND Internal Medicine Hematology & Oncology
DX: C34.31 Malignant neoplasm of lower lobe, right bronchus or lung (principal); C34.32 Malignant neoplasm of lower lobe, left bronchus or lung; B02.9 Zoster without complications; E78.5 Hyperlipidemia, unspecified; I10 Essential (primary) hypertension
CPT/HCPCS: 78815; A9552

== ENCOUNTER → 2023-12-25 | Outpatient (CLI) | payer MEDICARE, BC ==
[2023-12-25 14:09] LABS: Partial Thromboplastin Time 24.5 sec (22.0-30.0); Prothrombin Time 10.7 sec (10.0-12.5)
[2023-12-25 14:14] LABS: HGB 12.9 gm/dL (13.0-17.5); MCH 33.7 pg (25.0-35.0); MCHC 33.1 g/dL (31.0-37.0); MCV 101.7 fL (80.0-100.0); Macrocytosis Slight; Mean Platelet Volume 8.3; Platelet Count 219 k/uL (150-450); RBC 3.83 m/uL (4.30-5.90); RDW 14.9 % (11.5-15.5); WBC 5.1 k/uL (3.8-10.6)
[2023-12-25 18:35] LABS: Appearance,Urine Clear (Clear); Bilirubin,Urine Negative (Negative); Blood,Urine Negative (Negative); Color,Urine Yellow (Yellow); Ketones,Urine Negative (Negative); Nitrite,Urine Negative (Negative); PH, Urine 5.5; Specific Gravity,Urine 1.012 (1.001-1.030); Urobilinogen,Urine 0.2 E.U./DL
[2023-12-25 19:44] LABS: Blood Urea Nitrogen 11.1 mg/dL (9.0-27.0); Carbon Dioxide 26.1 mmol/L (21.6-31.8); Chloride 105 mmol/L (96-109); Potassium 4.5 mmol/L (3.5-5.5); Sodium 142 mmol/L (135-145)
== END | disposition home or self-care (01) ==
LOC: LABWHC1 12:54
PROVIDERS: ATTEND Thoracic Surgery (Cardiothoracic Vascular Surgery)
DX: Z01.818 Encounter for other preprocedural examination
CPT/HCPCS: 36415; 80051; 81003; 82565; 84520; 85027; 85610; 85730; 87086

== ENCOUNTER 2023-12-30 06:17 | Inpatient (IN) | payer MEDICARE, BC ==
[2023-12-30] MEDS: IV FLUID CONTINUATION 1,000 ML IV ONE ×4 (06:56)
[2023-12-30] MEDS: fentaNYL (PF) 50 MCG/ML 2 ML AMP IV PRN (07:40)
[2023-12-30] MEDS: MIDAZOLAM 2 MG/2 ML VIAL IV ONE (07:40)
[2023-12-30] MEDS: ONDANSETRON 4 MG/2 ML VIAL IVP ONE (08:00)
[2023-12-30] MEDS ORDERED: KETAMINE HCL IN 0.9 % NACL 50 MG/5 ML SYRINGE ONE (08:17)
[2023-12-30] MEDS ORDERED: SUCCINYLCHOLINE CHLORIDE 200 MG/10 ML VIAL IV ONE (08:17)
[2023-12-30] MEDS ORDERED: PROPOFOL 10 MG/ML 20 ML VIAL IV ONE (08:17)
[2023-12-30] MEDS ORDERED: WATER FOR INJECTION, STERILE 10 ML VIAL IV ONE (08:17)
[2023-12-30] MEDS ORDERED: hydrALAZINE HCL 20 MG/ML 1 ML VIAL ONE (08:17)
[2023-12-30] MEDS ORDERED: LABETALOL 5 MG/ML VIAL MDV ONE (08:17)
[2023-12-30] MEDS ORDERED: ROCURONIUM 10 MG/ML (5 ML VIAL) IV ONE (08:17)
[2023-12-30] MEDS ORDERED: ALBUTEROL HFA INHALER INHALATION ONE (08:17)
[2023-12-30] MEDS ORDERED: ACETAMINOPHEN IV (For NPO) 1,000 MG/100 ML VIAL ONE (08:17)
[2023-12-30] MEDS ORDERED: GLYCOPYRROLATE 0.2 MG/ML 2 ML VIAL ONE (08:17)
[2023-12-30] MEDS: LACTATED RINGERS 1,000 ML IV SCH (08:17)
[2023-12-30] MEDS ORDERED: ePHEDrine 50 MG/ML 1 ML VIAL ONE (08:17)
[2023-12-30] MEDS ORDERED: MIDAZOLAM 2 MG/2 ML VIAL ONE (08:17)
[2023-12-30] MEDS ORDERED: ROPIVACAINE 5 MG/ML 30 ML VIAL ONE (08:17)
[2023-12-30] MEDS ORDERED: fentaNYL (PF) 50 MCG/ML 2 ML AMP ONE (08:17)
[2023-12-30] MEDS ORDERED: NEOSTIGMINE 1 MG/ML 10 ML VIAL ONE (08:17)
[2023-12-30] MEDS ORDERED: LIDOCAINE 1% INJ 10MG/ML (20 ML MDV) ONE (08:17)
[2023-12-30] MEDS ORDERED: HYDROmorphone (PF) 1 MG/ML ONE (08:17)
[2023-12-30] MEDS: BUPIVACAINE (PF) 0.5% 30 ML VIAL SQ ONE (09:12)
[2023-12-30] MEDS: LACTATED RINGERS 1,000 ML IV ONE (12:22)
[2023-12-30] MEDS: HYDROmorphone 0.5 MG/0.5 ML SYRINGE IVP PRN (13:09)
--- NOTE | 2023-12-30 13:31 | P.OP ---
Date of Procedure: 12/30/23 Preoperative Diagnosis: Lung cancer right lower lobe Postoperative Diagnosis: Same Procedure(s) Performed: Robotic assisted thoracoscopic right lower lobectomy with mediastinal lymph node dissection Anesthesia: ANNIE Surgeon: Patrick Zuluaga Estimated Blood Loss (ml): 30 Pathology: none sent Condition: stable Disposition: PACU Indications for Procedure: 63-year-old male with history of left upper lobe carcinoma several years ago status post lobectomy presents at this time with a new right lower lobe tumor. Workup suggests a stage I carcinoma. Pathology appears to be different tissue type. Patient's pulmonary function was adequate for a second lobectomy. This was discussed with the patient and informed consent was obtained. Operative Findings: There is a tumor in the superior portion of the right lower lobe with overlying pleural puckering. There was extensive anthracotic lymphadenopathy in both the mediastinum and the hilum. Description of Procedure: The patient was brought to the operating room and placed supine on the operating table. General anesthesia was induced. Double-lumen endotracheal tube was placed and appropriately positioned and secured. Patient was turned in the left lateral decubitus position, appropriately positioned for robotic lobectomy and the right chest was sterilely prepped and draped. Single lung ventilation was initiated. The patient remained with saturations above 90% the entire procedure. Initial incision was made in the ninth interspace in the midaxillary line. 8 mm robotic port was placed. Video thoracoscope was placed in placement in the pleural space was confirmed. CO2 insufflation was begun. Chest was explored and there were no significant adhesions. The greater fissure was incomplete and the lesser fissure was essentially absence. 212 mm robotic ports were placed anterior and posterior to the initial port and a second 8 mm port was placed posteriorly in the fifth interspace. Working port was placed at the level of the diaphragm. Robot was docked. The greater fissure was marked with electrocautery and the inferior pulmonary ligament was taken down. Dissection was carried posteriorly up toward the azygos vein. R9, R8 and level 7 lymph nodes were resected and sent for permanent section. The inferior pulmonary vein was encircled and ligated and divided with a single firing of the robotic vascular stapler. Dissection was carried onto the bronchus. R11 lymph nodes were resected from between the upper lobe bronchus and the bronchus intermedius. Dissection was carried along the bronchus intermedius and the takeoff of the lower lobe bronchus was identified. We dissected out the interval between the lower lobe and middle lobe bronchus and resected more R11 lymph nodes. We were able to easily encircle the lower lobe bronchus and passed vessel loop around it however we were frustrated by inability to pass a stapler across the lower lobe bronchus. Further dissection upwards along the bronchus and of the superior segmental pulmonary artery branch were performed until we were successfully able to pass the stapler. The lower lobe bronchus was ligated and divided with a robotic green stapler. Further R11 hilar adenopathy was resected. Superior segmental branch of the pulmonary artery was encircled and ligated and divided with the robotic stapler. We then were able to successfully encircled the basilar segmental branch of the pulmonary artery and ligated and divided with the robotic stapler. Further hilar lymph nodes were now resected. The fissure was completed with multiple firings of a 45 mm blue robotic stapler. Lobectomy specimen was placed in an Endo Catch bag. R10 lymph nodes were resected. The robot was undocked and the working port incision was enlarged in the lobectomy specimen was removed in the bag. Chest was irrigated with warm water and the lung was inflated under thoracoscopic visualization. No significant air leaks were noted. Good hemostasis was noted throughout. A 28 Armenian chest tube was placed through separate stab incision anteriorly in position posterior apically and secured. The lung was again inflated under thoracoscopic visualization. Incisions were closed with layers of Vicryl suture. Rib blocks were performed at the levels of the incisions posteriorly. Patient was turned supine extubated and transferred to recovery in stable condition.
--- NOTE | 2023-12-30 13:55 | P.ANPRN ---
Procedure Note - Anesthesia - Nerve Block Performed Right Erector Spinae Single Time Out Performed: Yes ([id number]) Date of Procedure: 12/30/23 Procedure Start Time: 07:41 Procedure Stop Time: 07:46 Location of Patient: PreOp Indication: Acute Post-Operative Pain, Requested by Surgeon Specifically requested for management of pain by DrElieser: Patrick Zuluaga Sedation Type: Sedate with meaningful contact maintained Preparation: Sterile Prep Position: Sitting Catheter: None Needle Types: Pajunk Needle Gauge: 21 Ultrasound used to visualize needle placement: Yes Ultrasound used to observe medication spread: Yes Injectate: 0.5% Ropivacaine (see comment for volume) (30cc) Blood Aspirated: No Pain Paresthesia on Injection Noted: No Resistance on Injection: Normal Image Stored and Saved: Yes Events: Uneventful and Well Tolerated
--- NOTE | 2023-12-30 14:07 | XR ---
EXAMINATION TYPE: XR chest 1V portable DATE OF EXAM: 12/30/2023 1:51 PM CLINICAL INDICATION: Male, 63 years old with history of post lobectomy; [facility] COMPARISON: Chest radiographs from 08/27/2023 TECHNIQUE: XR chest 1V portable Frontal view of the chest. FINDINGS: Lungs/Pleura: There is no evidence of pleural effusion, focal consolidation, or pneumothorax. Pulmonary vascularity: Unremarkable. Heart/mediastinum: Cardiomediastinal silhouette is unremarkable. Musculoskeletal: No acute osseous pathology. Other findings: Subcutaneous emphysema along the right lower neck and right chest wall. Lines/Tubes: Right thoracotomy tube is present without evidence of pneumothorax. IMPRESSION: 1. Right thoracotomy tube without evidence for appreciable pneumothorax. 2. Pulmonary edema. [facility], , 12/30/2023 2:04 PM
[2023-12-30] MEDS ORDERED: LANACANE TOPICAL PRN (15:36)
[2023-12-30] MEDS ORDERED: IPRATROPIUM-ALBUTEROL 3 ML NEB IH PRN (15:36)
[2023-12-30] MEDS: traMADol 50 MG TAB PO PRN (16:03)
[2023-12-30] MEDS: HEPARIN SODIUM,PORCINE 5,000 UNIT/ML 1 ML VIAL SQ SCH (16:03)
[2023-12-30] MEDS: DEXTROSE 5%-0.45% NACL 1,000 ML IV SCH (16:04)
[2023-12-30] MEDS: IPRATROPIUM-ALBUTEROL 3 ML NEB IH SCH (16:15)
[2023-12-30] MEDS: KETOROLAC 15 MG/ML 1 ML VIAL IVP SCH (17:10)
[2023-12-30] MEDS: ACETAMINOPHEN TAB 325 MG TAB PO PRN (20:53)
[2023-12-30] MEDS: SENNOSIDES-DOCUSATE SODIUM 1 EACH TAB PO SCH (20:53)
[2023-12-30] MEDS: ATORVASTATIN 10 MG TAB PO SCH (20:53)
--- NOTE | 2023-12-31 03:54 | P.CNPUL ---
History of Present Illness Consult date: 12/31/23 Requesting physician: Kailey Harris Reason for consult: other (Status post robotic assisted thorascopic right lower lobectomy and mediastinal lymph node dissection) Chief complaint: Lung cancer status post right lower lobectomy History of present illness: Patient is a 63-year-old male with past medical history significant for previous squamous cell lung cancer diagnosed back in 2019 status post left lower lobectomy and completed chemoradiation. Follow-up PET scan done 07/30/2023 demonstrating a an enlarging cavitating right lower lobe nodule suspicious for disease recurrence. Dr. Klein did take the patient for robotic assisted bronchoscopy with transbronchial biopsies on 08/27/2023. Pathology consistent for moderately differentiated pulmonary adenocarcinoma. EBUS nondiagnostic for metastasis. Findings compatible with new primary lung cancer. Patient is status post 3 rounds of chemotherapy. His established oncologist is Dr. Murray. Brought in for robotic assisted thorascopic right lower lobectomy with mediastinal lymph node dissection yesterday. No perioperative complications reported. Patient is recovering on the cardiac stepdown unit. He is resting comfortably on 2 L/min nasal cannula. Right chest tube currently to waterseal. No air leak at this time. There is 120 mL of serosanguineous output in the chamber. Postoperative chest x-ray shows the right thoracotomy tube without any obvious pneumothorax on the right. Postoperative pain appears well-managed at this time. He does report some residual postherpetic neuralgia from previous shingles flare, on the left T5 or T6 dermatome. States he previously tried multiple different medications, and none of them worked. Incentive spirometer is at bedside. Achieves approximately 1500. D5W/1 half-normal saline infusing at 50 mL/h. Appears stable and progressing well. Review of Systems Constitutional: Denies chills, Denies fever, Denies night sweats, Denies weight gain, Denies weight loss Ears, nose, mouth and throat: Denies headache, Denies nasal discharge, Denies post-nasal drip, Denies sinus pressure, Denies sore throat Cardiovascular: Denies leg edema, Denies palpitations, Denies syncope Respiratory: Reports pain on inspiration, Denies cough, Denies dyspnea, Denies hemoptysis Gastrointestinal: Denies change in bowel habits, Denies constipation, Denies diarrhea, Denies nausea, Denies vomiting Genitourinary: Denies dysuria Musculoskeletal: Denies limitation of motion, Denies muscle weakness Integumentary: Reports lesions Neurological: Denies headaches, Denies memory loss, Denies seizures, Denies visual changes Psychiatric: Denies anxiety, Denies depression Past Medical History Past Medical History: Cancer, Hyperlipidemia, Hypertension, Myocardial Infarction (PA), Skin Disorder Additional Past Medical History / Comment(s): States "have had Shingles along my lung surgery scar since Apr 21", denies open sores, states getting better, and Dr Klein aware of it. Hx left lung cancer in 05/2018 with chemo and lobectomy. Silent PA 2021. Skin Disorder - "GM, disappeared after chemotherapy". Last Myocardial Infarction Date:: 2021 History of Any Multi-Drug Resistant Organisms: None Reported Past Surgical History: Heart Catheterization With Stent Additional Past Surgical History / Comment(s): [place] teeth removed, left lung lobectomy, 2 cardiac stents. Past Anesthesia/Blood Transfusion Reactions: No Reported Reaction Date of Last Stent Placement:: 2021 Smoking Status: Former smoker - Past Family History Mother Family Medical History: Cancer Additional Family Medical History / Comment(s): Appendix cancer. Medications and Allergies Home Medications Medication Instructions Recorded Confirmed Type Atorvastatin [Lipitor] 10 mg PO HS 05/27/18 12/30/23 History Acetaminophen Tab [Tylenol] 500 - 1,000 mg PO Q4-6H PRN 08/20/23 12/30/23 History Lanacane 1 applic TOPICAL DIRECTED PRN 08/20/23 12/30/23 History traMADol HCL 1 tab PO TID PRN 08/27/23 12/30/23 History Metoprolol Succinate (ER) [Toprol 50 mg PO DAILY 12/25/23 12/30/23 History XL] Allergies Allergy/AdvReac Type Severity Reaction Status Date / Time No Known Allergies Allergy Verified 12/25/23 09:33 Physical Exam Vitals: Vital Signs Temp Pulse Pulse Resp BP BP Pulse Ox 12/31/23 02:00 18 12/31/23 00:00 98.5 F 82 16 96/52 98 12/30/23 21:47 80 12/30/23 21:37 81 12/30/23 20:00 18 12/30/23 19:35 99.0 F 87 18 168/70 98 12/30/23 16:35 18 96 12/30/23 16:30 97.8 F 84 17 169/79 88 L 12/30/23 16:27 76 12/30/23 16:15 74 97 12/30/23 15:00 73 16 145/70 98 12/30/23 14:30 71 16 148/77 98 12/30/23 14:00 72 16 146/76 97 12/30/23 13:39 69 16 156/77 97 12/30/23 13:24 70 18 169/70 133/72 97 12/30/23 13:09 69 16 172/79 143/70 97 12/30/23 12:56 70 16 168/71 160/78 98 12/30/23 12:41 96.8 F L 75 12 164/55 99 12/30/23 07:55 63 16 155/82 99 12/30/23 06:56 97.3 F L 62 16 171/83 98 Intake and Output 12/30/23 12/30/23 12/31/23 14:59 22:59 06:59 Intake Total 1650 1160 Output Total 120 570 Balance 1530 590 Intake: IV 1650 200 Oral 960 Output: Chest Tube Drainage 20 Chest Tube Right Lateral 20 Chest Urine 90 550 Estimated Blood Loss 30 Other: Voiding Method Indwelling Catheter Indwelling Catheter GENERAL EXAM: Alert, 63-year-old white male, well-nourished appearing stated age, comfortable in no apparent distress. HEAD: Normocephalic and atraumatic EYES: Normal reaction of pupils, equal size. NOSE: Clear with pink turbinates. THROAT: No erythema or exudates. NECK: No masses, no JVD. CHEST: No chest wall deformity. Healed left herpes zoster at the T5 or T6 dermatome on left. Isolated to left right-sided thoracotomy tube to waterseal. No appreciable airleak. A total of 120 serosanguineous output. LUNGS: Equal air entry with no crackles, wheeze, rhonchi or dullness. On 2 L/min nasal cannula. No conversational dyspnea or accessory muscle use.. CVS: S1 and S2 normal with no audible murmur, regular rhythm. No extra heart sounds ABDOMEN: No hepatosplenomegaly, active bowel sounds, no guarding or rigidity. SPINE: No scoliosis or deformity SKIN: No rashes CENTRAL NERVOUS SYSTEM: No focal deficits, tone is normal in all 4 extremities. EXTREMITIES: There is no peripheral edema, clubbing, or cyanosis. Peripheral pulses are intact. Results - Diagnostic Findings Chest x-ray: image reviewed Assessment and Plan Assessment: Status postoperative day #1 following robotic assisted thorascopic right lower lobectomy with mediastinal lymph node dissection. No perioperative complications reported. Patient recovering on the cardiac stepdown unit Acute hypoxemic respiratory failure, currently on 2 L/min nasal cannula, postoperative chest x-ray shows a right thoracotomy tube without any evidence of pneumothorax or pleural effusion. Right lower lobe pulmonary nodule, Dr. Klein did take the patient for robotic assisted bronchoscopy with transbronchial biopsies on 08/27/2023. Pathology consistent for moderately differentiated pulmonary adenocarcinoma. EBUS nondiagnostic for metastasis. Findings compatible with new primary lung cancer. History of squamous cell lung carcinoma, originally diagnosed back in 2019, status post left lower lobectomy and completed chemo/radiation History of herpes zoster and postherpetic neuralgia History of hypertension History of hyperlipidemia Former tobacco dependence Plan: Patient's medications, labs, chest x-ray reviewed Patient recovering on the cardiac stepdown unit Currently on 2 L/min nasal cannula. Incentive spirometer is at bedside, encouraged hourly while awake Postoperative incisional pain reportedly well-controlled at this time Postoperative chest x-ray shows the right thoracotomy tube in place without any appreciable pneumothorax Chest tube currently to waterseal, no appreciable airleak Pathology pending Labs pending for this morning. GI prophylaxis: Protonix Pharmacological DVT prophylaxis: Subcutaneous heparin We will continue to follow I have personally seen and examined the patient, performed the documentation and the assessment and plan as written. Number of minutes spent on the visit:20 Time with Patient: Greater than 30
[2023-12-31 06:20] LABS: Basophils % (A) 0 %; Eosinophils % (A) 0 %; HCT 33.6 % (39.0-53.0); HGB 10.9 gm/dL (13.0-17.5); Hypochromasia Slight; Lymphocytes # (A) 1.4 k/uL (1.0-4.8); Lymphocytes % (A) 15 %; MCH 33.7 pg (25.0-35.0); MCHC 32.5 g/dL (31.0-37.0); MCV 103.7 fL (80.0-100.0); Macrocytosis Slight; Mean Platelet Volume 8.3; Monocytes # (A) 0.5 k/uL (0-1.0); Monocytes % (A) 5 %; Neutrophils # (A) 7.1 k/uL (1.3-7.7); Neutrophils % (A) 78 %; Platelet Count 200 k/uL (150-450); RBC 3.24 m/uL (4.30-5.90); RDW 14.1 % (11.5-15.5); WBC 9.1 k/uL (3.8-10.6)
[2023-12-31 06:35] LABS: African American GFR (CKD) >90 (>60 ml/min/1.73 sqM); Anion Gap 9 mmol/L; Blood Urea Nitrogen 16 mg/dL (9-20); Calcium 8.6 mg/dL (8.4-10.2); Carbon Dioxide 23 mmol/L (22-30); Chloride 102 mmol/L (98-107); Glucose 137 mg/dL (74-99); Non-African American GFR(CKD) 88 (>60 ml/min/1.73 sqM); Potassium 4.2 mmol/L (3.5-5.1); Sodium 134 mmol/L (137-145)
--- NOTE | 2023-12-31 07:25 | XR ---
EXAMINATION TYPE: XR chest 1V portable DATE OF EXAM: 12/31/2023 COMPARISON: 12/31/2023 INDICATION: Bleeding increasing chest tube TECHNIQUE: Single frontal view of the chest is obtained. FINDINGS: The heart size is normal. The pulmonary vasculature is normal. The lungs are clear. Right-sided chest tube is present. No pneumothorax is evident. Contains emphysema is present in the r ight neck and right lateral chest IMPRESSION: 1. Stable position right-sided chest tube. No sizable pleural fluid or pneumothorax [facility], , 12/31/2023 7:22 AM
[2023-12-31] MEDS ORDERED: PROPOFOL 10 MG/ML 20 ML VIAL IV ONE (07:52)
[2023-12-31] MEDS ORDERED: ALBUMIN HUMAN 5% (25gm) 500 ML VIAL IVPB ONE (07:52)
[2023-12-31] MEDS ORDERED: SUCCINYLCHOLINE CHLORIDE 200 MG/10 ML VIAL IV ONE (07:52)
[2023-12-31] MEDS ORDERED: GLYCOPYRROLATE 0.2 MG/ML 2 ML VIAL ONE (07:52)
[2023-12-31] MEDS ORDERED: ROCURONIUM 10 MG/ML (5 ML VIAL) IV ONE (07:52)
[2023-12-31] MEDS ORDERED: fentaNYL (PF) 50 MCG/ML 2 ML AMP ONE (07:52)
[2023-12-31] MEDS ORDERED: ceFAZolin 1 GM/50 ML BAG (PMX) ONE ×2 (07:52)
[2023-12-31] MEDS ORDERED: PHENYLEPHRINE 10 MG/ML 5 ML VIAL ONE (07:52)
[2023-12-31] MEDS ORDERED: LIDOCAINE 1% INJ 10MG/ML (20 ML MDV) ONE (07:52)
[2023-12-31] MEDS ORDERED: hydrALAZINE HCL 20 MG/ML 1 ML VIAL ONE (07:52)
--- NOTE | 2023-12-31 08:17 | XR ---
EXAMINATION TYPE: XR chest 1V DATE OF EXAM: 12/31/2023 6:48 AM CLINICAL INDICATION: Male, 63 years old with history of post lobectomy; [facility] COMPARISON: Chest radiograph from one day prior. TECHNIQUE: XR chest 1V Frontal view of the chest. FINDINGS: FINDINGS: Lungs/Pleura: There is no evidence of pleural effusion, focal consolidation, or pneumothorax. Pulmonary vascularity: Unremarkable. Heart/mediastinum: Cardiomediastinal silhouette is unremarkable. Musculoskeletal: No acute osseous pathology. Other findings: Subcutaneous emphysema along the right lower neck and right chest wall. Lines/Tubes: Right thoracotomy tube is present with trace pneumothorax. IMPRESSION: 1. Right thoracotomy tube with trace pneumothorax. [facility], , 12/31/2023 8:15 AM
[2023-12-31] MEDS: SODIUM CHLORIDE 0.9% 50 ML with ceFAZolin 2,000 MG IV ONE (08:20)
[2023-12-31] MEDS: LACTATED RINGERS 1,000 ML IV ONE ×2 (08:20)
[2023-12-31 08:45] LABS: ABG Glucose Whole Blood 135 mg/dL (75-99); ABG Ionized Calcium 4.2 mg/dL (4.5-5.3); ABG Lactic Acid Whole Blood 1.3 mmol/L (0.5-1.6); ABG PH 7.31 (7.35-7.45); ABG PO2 82 mmHg (83-108); ABG Potassium Whole Blood 3.7 mmol/L (3.4-4.5); ABG Sodium Whole Blood 138 mmol/L (135-146)
[2023-12-31 08:49] LABS: ABG HCO3 26 mmol/L (21-25); ABG PCO2 51 mmHg (35-45)
[2023-12-31 08:50] LABS: ABG Base Excess -0.7 mmol/L; ABG Hematocrit 26 % (34.0-46.0); ABG Oxygen Saturation 96.5 % (94-97); ABG TCO2 25 mmol/L (19-24)
--- NOTE | 2023-12-31 09:44 | P.OP ---
Date of Procedure: 12/31/23 Preoperative Diagnosis: Postoperative hemorrhage Postoperative Diagnosis: Same, hemothorax, no active bleeding Procedure(s) Performed: Right thoracoscopy with evacuation of hemothorax Anesthesia: ANNIE Surgeon: Patrick Zuluaga Concrete Wall Grinder Operator #1: Una Muhammad Concrete Wall Grinder Operator #2: Jayson Zuñiga Estimated Blood Loss (ml): 50 IV fluids (ml): 1,000 Urine output (ml): 200 Pathology: none sent Condition: stable Disposition: PACU Indications for Procedure: 63-year-old male who underwent right lower lobectomy on . He was very stable postoperatively and sent to the stepdown unit. He was stable overnight but I received a phone call at 615 this morning that the patient had drained 500 cc of bobby blood and a less than 1 hour timeframe. Patient remained hemodynamically stable. Chest x-ray was unremarkable. The chest tube was clamped for 1 hour. On unclamping the chest tube it continued to drain. Was felt appropriate to take the patient for exploration. Operative Findings: There was a large amount of clotted blood in the pleural space. This was present more or less throughout the pleural space from the apex to the diaphragm. On evacuation of the clot, there was no evidence of active bleeding from any of the hilar structures. Continued exploration revealed no active bleeding from any of the chest wall access sites. Once the blood was evacuated there was no evidence of ongoing collection within the chest cavity. Description of Procedure: Patient was brought to the operating room and placed supine on the operating table. Left radial arterial line and Myrick catheter were placed. General anesthesia was induced and a double-lumen endotracheal tube placed and positioned with fiberoptic bronchoscopy. Patient was turned into the left lateral decubitus position and appropriately positioned. The right chest was sterilely prepped and draped. The previous access thoracotomy was reopened. There was evidence of clot in the chest but no immediate evidence of exsanguinating hemorrhage. The mid axillary line port site was opened and a thoracoscopic port placed. Thoracoscope was placed through this. Working through the access incision, we evacuated all the clot and liquid from the chest cavity. Copious irrigation was performed. We carefully examined the hilar sites both pleural gutters apical pleural region as well as the chest wall sites and could find no evidence of active bleeding. Following complete evacuation of the clot and irrigation of the chest the pleural space appeared pristine. We did do a little bit of electrocautery at the chest wall sites with the suspicion that these had been the source although we really had no way of knowing for certain. 36 right angled chest tube was placed through the previous chest tube site, the previous chest tube having been removed. It was positioned along the diaphragm posteriorly. 28 [place] chest tube was we then placed through separate stab incision just below the camera port. It was positioned toward the apex posteriorly. Both chest tubes were secured with 0 Ethibond suture. The camera port site and the access thoracotomy site were closed with layers of Vicryl suture. Dry sterile dressings were applied. The patient was turned supine extubated and transferred to recovery in stable condition. Final hemoglobin prior to leaving the room was 8.
[2023-12-31] MEDS: HYDROmorphone 0.5 MG/0.5 ML SYRINGE IVP PRN (10:13)
--- NOTE | 2023-12-31 10:46 | P.ANPRN ---
Procedure Note - Anesthesia - Invasive Line Left [place] Ankit Time Out Performed: Yes Date of Procedure: 12/31/23 Location of Patient: PreOp Preparation: Sterile Prep, Sterile Dressing Arterial Line Location: Radial (Left) Ultrasound Used: No Purpose - Visualization and Identification of Vasculature: No Narrative: Invasive line placement per sterile protocol utilized. Informed consent obtained from the patient. Procedure was performed under complete aseptic precautions. The left wrist is slightly extended and placed on a roll of cloth. Radial artery palpated and appeared to have a intact collateral circulation. Front of the wrist was cleaned with ChloraPrep. It was draped and 2 mL of 1% lidocaine was infiltrated and ability into the front of the wrist. A 20-gauge two and half inch Arrow arterial catheter was inserted and a bright red blood/back was noticed. It was connected to the pressure mo nitoring line and the flashback was confirmed. The line was sutured into the skin. Tegaderm dressing was applied. Patient tolerated the procedure very well with no apparent complications.
--- NOTE | 2023-12-31 11:15 | XR ---
EXAMINATION TYPE: XR chest 1V portable DATE OF EXAM: 12/31/2023 11:04 AM CLINICAL INDICATION: Male, 63 years old with history of chest tube placement; [facility] COMPARISON: Chest radiographs from same day TECHNIQUE: XR chest 1V portable Frontal view of the chest. FINDINGS: Lungs/Pleura: There is no evidence of pleural effusion, focal consolidation, or pneumothorax. Pulmonary vascularity: Unremarkable. Heart/mediastinum: Cardiomediastinal silhouette is unremarkable. Musculoskeletal: No acute osseous pathology. Other findings: Subcutaneous emphysema along the right lower neck and right chest wall. Lines/Tubes: Right thoracotomy tube is present without pneumothorax on this exam. IMPRESSION: 1. Right thoracotomy tube without appreciable pneumothorax on this exam. [facility], , 12/31/2023 11:13 AM
[2023-12-31] MEDS: METOPROLOL TARTRATE 5 MG/5 ML VIAL IVP STA (11:48)
[2023-12-31] MEDS: hydrALAZINE HCL 20 MG/ML 1 ML VIAL IVP STA (12:16)
[2023-12-31] MEDS: DEXTROSE 5%-0.45% NACL 1,000 ML IV ONE (12:45)
[2023-12-31] MEDS: DILTIAZEM 125 MG in SODIUM CHLORIDE 0.9% 100 ML IV SCH (12:50)
[2023-12-31 13:36] LABS: Glucose,Whole Blood 166 mg/dL (70-110)
[2023-12-31] MEDS: DEXTROSE 5% IN WATER 100 ML with AMIODARONE 150 MG IV ONE (13:36)
[2023-12-31] MEDS: DILTIAZEM DRIP BOLUS FROM BAG 1 MG SOLN IV STA (13:47)
[2023-12-31] MEDS: METOPROLOL SUCCINATE (ER) 50 MG TAB.ER.24H PO SCH (13:47)
[2023-12-31] MEDS: PANTOPRAZOLE 40 MG TABLET PO SCH (13:48)
[2023-12-31 13:53] LABS: HCT 29.3 % (39.0-53.0); HGB 9.8 gm/dL (13.0-17.5); MCH 33.8 pg (25.0-35.0); MCHC 33.4 g/dL (31.0-37.0); MCV 101.3 fL (80.0-100.0); Macrocytosis Slight; Mean Platelet Volume 8.9; Platelet Count 215 k/uL (150-450); RDW 13.9 % (11.5-15.5); WBC 11.6 k/uL (3.8-10.6)
[2023-12-31] MEDS: AMIODARONE 360 MG in DEXTROSE 5% IN WATER 200 ML IV ONE (14:00)
[2023-12-31 14:07] LABS: African American GFR (CKD) >90 (>60 ml/min/1.73 sqM); Anion Gap 7 mmol/L; Blood Urea Nitrogen 12 mg/dL (9-20); Calcium 8.3 mg/dL (8.4-10.2); Carbon Dioxide 25 mmol/L (22-30); Chloride 102 mmol/L (98-107); Glucose 152 mg/dL (74-99); Non-African American GFR(CKD) >90 (>60 ml/min/1.73 sqM); Potassium 3.9 mmol/L (3.5-5.1); Sodium 134 mmol/L (137-145)
[2023-12-31] MEDS: POTASSIUM CHLORIDE ER 20 MEQ TAB.ER PO SCH (14:26)
[2023-12-31] MEDS: fentaNYL (PF) 50 MCG/ML 2 ML AMP IVP PRN (17:39)
[2023-12-31] MEDS: AMIODARONE 450 MG in DEXTROSE 5% IN WATER 250 ML IV SCH (18:56)
[2023-12-31] MEDS: DEXAMETHASONE SOD PHOSPHATE 4 MG/ML 1 ML VIAL IV ONE (19:31)
[2023-12-31] MEDS: MELATONIN 3 MG TABLET PO SCH (20:25)
[2024-01-01] MEDS ORDERED: Magnesium Replacement Protocol 1 EACH MISC MISCELLANE PRN (00:32)
[2024-01-01] MEDS ORDERED: Potassium Replacement Protocol 1 EACH MISC MISCELLANE PRN (00:37)
[2024-01-01] MEDS: POTASSIUM CHLORIDE ER 20 MEQ TAB.ER PO SCH ×2 (01:08→06:41)
[2024-01-01] MEDS: MAGNESIUM SULFATE-D5W PMX 1 GM in DEXTROSE/WATER 1 100ML.BAG IVPB ONE (01:09)
[2024-01-01] MEDS: hydrALAZINE HCL 20 MG/ML 1 ML VIAL IVP PRN (02:34)
[2024-01-01 05:21] LABS: HCT 28.3 % (39.0-53.0); HGB 9.3 gm/dL (13.0-17.5); MCH 33.2 pg (25.0-35.0); MCV 100.7 fL (80.0-100.0); Macrocytosis Slight; Mean Platelet Volume 9.4; Platelet Count 174 k/uL (150-450); RBC 2.81 m/uL (4.30-5.90); WBC 10.1 k/uL (3.8-10.6)
[2024-01-01 05:40] LABS: African American GFR (CKD) >90 (>60 ml/min/1.73 sqM); Anion Gap 6 mmol/L; Blood Urea Nitrogen 8 mg/dL (9-20); Calcium 8.4 mg/dL (8.4-10.2); Carbon Dioxide 26 mmol/L (22-30); Chloride 103 mmol/L (98-107); Glucose 160 mg/dL (74-99); Magnesium 2.2 mg/dL (1.6-2.3); Non-African American GFR(CKD) >90 (>60 ml/min/1.73 sqM); Potassium 3.6 mmol/L (3.5-5.1); Sodium 135 mmol/L (137-145)
--- NOTE | 2024-01-01 07:44 | P.PN ---
Subjective Progress Note Date: 01/01/24 Principal diagnosis: Lung cancer right lower lobe. History of previous squamous cell carcinoma in 2019 status post left lower lobectomy along with chemo/radiation, hypertension, hyperlipidemia, herpes zoster and postherpetic neuralgia, previous tobacco dependence, mild COPD POD #2 robotic assisted thoracoscopic right lower lobectomy with mediastinal lymph node dissection Postoperative hemorrhage, hemothorax, no active bleeding POD #1 right thoracoscopy with evacuation of hemothorax Paroxysmal atrial fibrillation, unexpected, currently sinus The patient was seen and examined this morning sitting up in bed in the intensive care unit in no acute distress. He does complain of expected postsurgical pain which is mostly controlled with current medication regimen. Denies significant shortness of breath. Currently in sinus rhythm and hemodynamically stable although a bit hypertensive, likely pain response. He did have atrial fibrillation after return to surgery yesterday with conversion to sinus rhythm after initiation of amiodarone. Right pleural chest tube pr esent to continuous wall suction without air leak present. Chest x-ray, labs reviewed. He is currently on room air with oxygen saturation in the low to mid 90s, able to achieve 1000 mL on his incentive spirometry. No other new concerns. Objective - Vital Signs Vital signs: Vital Signs Temp 98.1 F 01/01/24 04:00 Pulse 96 01/01/24 07:00 Resp 23 01/01/24 07:00 BP 139/78 01/01/24 07:00 Pulse Ox 89 L 01/01/24 07:00 FiO2 Intake & Output 12/31/23 01/01/24 01/01/24 18:59 06:59 18:59 Intake Total 7184.452 1771.6 Output Total 960 2770 Balance 923.283 -1620.4 Weight 85.5 kg Intake: IV 1400 Intake, IV Titration 111.384 5165.6 Amount Amiodarone 360 mg In 133.2 399.6 Dextrose 5% in Water 200 ml @ 1 MG/MIN 33.333 mls/ hr IV .Q6H ONE Rx#: [id number] Dextrose 5% in Water 100 100 ml @ 618 mls/hr IV .Q10M ONE with Amiodarone 150 mg Rx#:[id number] Dextrose 5%-0.45% NaCl 1, 250 650 000 ml @ 0 mls/hr IV .ST -MED ONE Rx#:[id number] Diltiazem 125 mg In 0.083 Sodium Chloride 0.9% 100 ml @ 5 MG/HR 5 mls/hr IV .Q24H [facility] Rx#:[id number] Magnesium Sulfate-D5w Pmx 100 1 gm In Dextrose/Water 1 100ml.bag @ 100 mls/hr IVPB ONCE ONE Rx#: [id number] Output: Chest Tube Drainage 260 260 Chest Tube Right Lateral 260 260 Chest Drainage 820 Right Chest 820 Urine 650 1690 Estimated Blood Loss 50 Other: Voiding Method Indwelling Catheter Indwelling Catheter ABP, PAP, CO, CI - Last Documented Arterial Blood Pressure 150/49 - Exam CONSTITUTIONAL: Appears comfortable, cooperative, no acute distress RESPIRATORY: Lungs sounds diminished bilaterally. Respirations even, nonlabored. Currently on room air with oxygen saturation 93-95%. Able to achieve 1000 mL on incentive spirometry. Weak cough. CARDIOVASCULAR: S1, S2 present. Regular rate and rhythm, sinus rhythm on telemetry. Palpable peripheral pulses bilaterally. No edema present. No calf pain or tenderness noted. SCDs present. GASTROINTESTINAL: Abdomen soft, nontender, nondistended. Active bowel sounds present 4 quadrants. Tolerating diet. Denies flatus GENITOURINARY: Myrick present draining clear, yellow urine. Output overnight 45 to 150 mL/h, 2280 mL in the last 24 hours INTEGUMENTARY: Skin is warm and dry with evidence of good perfusion. Thoracic incision well approximated and covered with dry intact dressing. NEUROLOGIC: Cranial nerves II through XII intact MUSKULOSKELETAL: Able to move all extremities, strength equal bilaterally PSYCHIATRIC: Alert and oriented to person place and time, appropriate affect, intact judgment and insight INVASIVE LINES AND TUBES: Right pleural chest tubes present and connected to wall suction, no air leaks present, 240 mL serosanguineous drainage overnight, 500 mL in the last 24 hours - Allied health notes Allied health notes reviewed: nursing - Labs CBC & Chem 7: 01/01/24 05:10 01/01/24 05:10 Labs: Abnormal Lab Results - Last 24 Hours (Table) 12/31/23 12/31/23 12/31/23 Range/Units 07:33 08:50 13:33 WBC (3.8-10.6) k/uL RBC (4.30-5.90) m/uL Hgb (13.0-17.5) gm/dL Hct (39.0-53.0) % MCV (80.0-100.0) fL ABG pH 7.31 L (7.35-7.45) ABG pCO2 51 H (35-45) mmHg ABG pO2 82 L (83-108) mmHg ABG HCO3 26 H (21-25) mmol/L ABG Total CO2 25 H (19-24) mmol/L ABG Hematocrit 26 L (34.0-46.0) % ABG Ionized Calcium 4.2 L (4.5-5.3) mg/dL ABG Glucose 135 H (75-99) mg/dL Hemoglobin 8.6 L (13.0-17.5) gm/dL Sodium (137-145) mmol/L BUN (9-20) mg/dL Creatinine (0.66-1.25) mg/dL Glucose (74-99) mg/dL POC Glucose (mg/dL) 166 H (70-110) mg/dL Calcium (8.4-10.2) mg/dL Arterial Blood Glucose 135 H (75-99) mg/dL Crossmatch See Detail 12/31/23 12/31/23 01/01/24 Range/Units 13:34 13:34 05:10 WBC 11.6 H (3.8-10.6) k/uL RBC 2.90 L 2.81 L (4.30-5.90) m/uL Hgb 9.8 L 9.3 L (13.0-17.5) gm/dL Hct 29.3 L 28.3 L (39.0-53.0) % MCV 101.3 H 100.7 H (80.0-100.0) fL ABG pH (7.35-7.45) ABG pCO2 (35-45) mmHg ABG pO2 (83-108) mmHg ABG HCO3 (21-25) mmol/L ABG Total CO2 (19-24) mmol/L ABG Hematocrit (34.0-46.0) % ABG Ionized Calcium (4.5-5.3) mg/dL ABG Glucose (75-99) mg/dL Hemoglobin (13.0-17.5) gm/dL Sodium 134 L (137-145) mmol/L BUN (9-20) mg/dL Creatinine (0.66-1.25) mg/dL Glucose 152 H (74-99) mg/dL POC Glucose (mg/dL) (70-110) mg/dL Calcium 8.3 L (8.4-10.2) mg/dL Arterial Blood Glucose (75-99) mg/dL Crossmatch 01/01/24 Range/Units 05:10 WBC (3.8-10.6) k/uL RBC (4.30-5.90) m/uL Hgb (13.0-17.5) gm/dL Hct (39.0-53.0) % MCV (80.0-100.0) fL ABG pH (7.35-7.45) ABG pCO2 (35-45) mmHg ABG pO2 (83-108) mmHg ABG HCO3 (21-25) mmol/L ABG Total CO2 (19-24) mmol/L ABG Hematocrit (34.0-46.0) % ABG Ionized Calcium (4.5-5.3) mg/dL ABG Glucose (75-99) mg/dL Hemoglobin (13.0-17.5) gm/dL Sodium 135 L (137-145) mmol/L BUN 8 L (9-20) mg/dL Creatinine 0.59 L (0.66-1.25) mg/dL Glucose 160 H (74-99) mg/dL POC Glucose (mg/dL) (70-110) mg/dL Calcium (8.4-10.2) mg/dL Arterial Blood Glucose (75-99) mg/dL Crossmatch - Imaging and Cardiology Chest x-ray: image reviewed Assessment and Plan Assessment: Lung cancer right lower lobe, status post robotic assisted thoracoscopic right lower lobectomy with mediastinal lymph node dissection, moderately differentiated pulmonary adenocarcinoma with acinar pattern on transbronchial biopsy, final pathology pending Postoperative hemorrhage, hemothorax, no active bleeding, status post right thoracoscopy with evacuation of hemothorax Paroxysmal atrial fibrillation, unexpected, currently sinus History of previous squamous cell carcinoma in 2019 status post left lower lobectomy along with chemo/radiation Hypertension Hyperlipidemia Herpes zoster and postherpetic neuralgia Previous tobacco dependence Mild COPD Plan: Continue right pleural chest tube, will place to waterseal, monitor output Continue amiodarone for A-fib prophylaxis, will transition to oral Continue home medications, will add hydralazine for better blood pressure control Discontinue arterial line Discontinue Myrick catheter, may bladder scan and straight cath for greater than 300 mL residual Pain control with current medication regimen, will add robaxin Increase activity, ambulate as tolerated Encourage incentive spirometry use 10 times every hour while awake Will monitor daily labs and x-rays Will give IV reglan, suppository Will place transfer orders for [address], may transfer when bed available More recommendations to follow
[2024-01-01] MEDS: AMIODARONE 200 MG TAB PO SCH (08:35)
[2024-01-01] MEDS: hydrALAZINE HCL 25 MG TAB PO SCH (08:35)
[2024-01-01] MEDS: METOCLOPRAMIDE 5 MG/ML 2 ML VIAL IVP STA (08:41)
[2024-01-01] MEDS: ASPIRIN 81 MG PO SCH (09:16)
[2024-01-01] MEDS: methocarbamoL 750 MG TAB PO SCH (09:16)
--- NOTE | 2024-01-01 10:03 | XR ---
EXAMINATION TYPE: XR chest 1V portable DATE OF EXAM: 01/01/2024 COMPARISON: 12/31/2023 INDICATION: Lobectomy TECHNIQUE: Single frontal view of the chest is obtained. FINDINGS: The heart size is normal. The pulmonary vasculature is normal. Some mild right lower lobe infiltrate may be present with air bronchograms. Correlate for atelectasis and pneumonia. 2 right-sided chest tubes are present. Right diaphragm is elevated. The stomach appears distended wit h air. IMPRESSION: 1. 2 right-sided chest tubes. 2. Right lower lobe infiltrate. Correlate for atelectasis and pneumonia. [facility], , 01/01/2024 10:01 AM
--- NOTE | 2024-01-01 10:28 | P.PN ---
Subjective Progress Note Date: 01/01/24 Principal diagnosis: Lobectomy. Patient is a 63-year-old male with past medical history significant for previous squamous cell lung cancer diagnosed back in 2019 status post left lower lobectomy and completed chemoradiation. Follow-up PET scan done 07/30/2023 demonstrating a an enlarging cavitating right lower lobe nodule suspicious for disease recurrence. Dr. Klein did take the patient for robotic assisted bronchoscopy with transbronchial biopsies on 08/27/2023. Pathology consistent for moderately differentiated pulmonary adenocarcinoma. EBUS nondiagnostic for metastasis. Findings compatible with new primary lung cancer. Patient is status post 3 rounds of chemotherapy. His established oncologist is Dr. Murray. Brought in for robotic assisted thorascopic right lower lobectomy with mediastinal lymph node dissection yesterday. No perioperative complications reported. Patient is recovering on the cardiac stepdown unit. He is resting comfortably on 2 L/min nasal cannula. Right chest tube currently to waterseal. No air leak at this time. There is 120 mL of serosanguineous output in the chamber. Postoperative chest x-ray shows the right thoracotomy tube without any obvious pneumothorax on the right. Postoperative pain appears well-managed at this time. He does report some residual postherpetic neuralgia from previous shingles flare, on the left T5 or T6 dermatome. States he previously tried multiple different medications, and none of them worked. Incentive spirometer is at bedside. Achieves approximately 1500. D5W/1 half-normal saline infusing at 50 mL/h. Appears stable and progressing well. Progress note dated January 09, 2024. This is a 63-year-old male postop day #2, status post right lower lobectomy. The patient has a history of adenocarcinoma. Unfortunately, because of mediastinal bleeding, he had to go back to the operating room. I did speak to Dr. Zuluaga about this patient's case. The patient is currently seen today in room 254. The patient is on room air. He is getting D5 with half-normal saline at 50 cc an hour. He did develop atrial fibrillation, and for that reason was placed on amiodarone at 0.5 mg/min. Other than pain, the patient is doing well without complaints. White count 10.1, hemoglobin 9.3, hematocrit 28.3, platelet count normal. Sodium 135, potassium 3.6, chlorides 103, CO2 26, BUN 8, creatinine 0.59. Glucose is 160. Chest x-ray shows 2 right-sided chest tubes, and right lower lobe infiltrate or atelectasis. Objective - Vital Signs Vital signs: Vital Signs Temp 98.3 F 01/01/24 08:00 Pulse 80 01/01/24 10:00 Resp 19 01/01/24 10:00 BP 152/75 01/01/24 10:00 Pulse Ox 90 L 01/01/24 10:00 FiO2 Intake & Output 12/31/23 01/01/24 01/01/24 18:59 06:59 18:59 Intake Total 4305.727 0312.6 159.8 Output Total 960 2770 150 Balance 923.283 -1620.4 9.8 Weight 85.5 kg Intake: IV 1400 Intake, IV Titration 000.716 9880.6 159.8 Amount Amiodarone 360 mg In 133.2 399.6 Dextrose 5% in Water 200 ml @ 1 MG/MIN 33.333 mls/ hr IV .Q6H ONE Rx#: [id number] Amiodarone 450 mg In 49.8 Dextrose 5% in Water 250 ml @ 0.5 MG/MIN 16.667 mls/hr IV .Q15H [facility] Rx#: [id number] Dextrose 5% in Water 100 100 ml @ 618 mls/hr IV .Q10M ONE with Amiodarone 150 mg Rx#:[id number] Dextrose 5%-0.45% NaCl 1, 250 650 110 000 ml @ 0 mls/hr IV .STK -MED ONE Rx#:[id number] Diltiazem 125 mg In 0.083 Sodium Chloride 0.9% 100 ml @ 5 MG/HR 5 mls/hr IV .Q24H [facility] Rx#:[id number] Magnesium Sulfate-D5w Pmx 100 1 gm In Dextrose/Water 1 100ml.bag @ 100 mls/hr IVPB ONCE ONE Rx#: [id number] Output: Chest Tube Drainage 260 260 20 Chest Tube Right Lateral 260 260 20 Chest Drainage 820 Right Chest 820 Urine 650 1690 130 Estimated Blood Loss 50 Other: Voiding Method Indwelling Catheter Indwelling Catheter Indwelling Catheter ABP, PAP, CO, CI - Last Documented Arterial Blood Pressure 150/49 - Exam No acute distress, oriented 3. Currently on room air. No respiratory distress. HEENT examination is grossly unremarkable. Mucous membranes are moist. No oral lesions. Neck supple. Full range of motion. No adenopathy thyromegaly or neck vein distention. Cardiovascular examination reveals regular rhythm rate. S1-S2 normal. No S3 or S4. No discernible murmur noted. Lungs reveal scattered bilateral rhonchi. No wheezes or crackles. Breath sounds equal. Right sided chest tubes are noted. Room air saturation 90%. Abdomen soft bowel sounds are heard. No masses or tenderness. Extremities are intact. No cyanosis clubbing or edema. Skin is without rash or lesion. Neurologic examination is brief but nonfocal. - Labs CBC & Chem 7: 01/01/24 05:10 01/01/24 05:10 Labs: Abnormal Lab Results - Last 24 Hours (Table) 12/31/23 12/31/23 12/31/23 Range/Units 13:33 13:34 13:34 WBC 11.6 H (3.8-10.6) k/uL RBC 2.90 L (4.30-5.90) m/uL Hgb 9.8 L (13.0-17.5) gm/dL Hct 29.3 L (39.0-53.0) % MCV 101.3 H (80.0-100.0) fL Sodium 134 L (137-145) mmol/L BUN (9-20) mg/dL Creatinine (0.66-1.25) mg/dL Glucose 152 H (74-99) mg/dL POC Glucose (mg/dL) 166 H (70-110) mg/dL Calcium 8.3 L (8.4-10.2) mg/dL 01/01/24 01/01/24 Range/Units 05:10 05:10 WBC (3.8-10.6) k/uL RBC 2.81 L (4.30-5.90) m/uL Hgb 9.3 L (13.0-17.5) gm/dL Hct 28.3 L (39.0-53.0) % MCV 100.7 H (80.0-100.0) fL Sodium 135 L (137-145) mmol/L BUN 8 L (9-20) mg/dL Creatinine 0.59 L (0.66-1.25) mg/dL Glucose 160 H (74-99) mg/dL POC Glucose (mg/dL) (70-110) mg/dL Calcium (8.4-10.2) mg/dL Assessment and Plan Assessment: Status postoperative day #2 following robotic assisted thorascopic right lower lobectomy with mediastinal lymph node dissection. Postop day #1, status post mediastinal exploration, for bleeding. Acute hypoxemic respiratory failure, currently on 2 L/min nasal cannula. Right lower lobe pulmonary nodule, Dr. Klein did take the patient for robotic assisted bronchoscopy with transbronchial biopsies on 08/27/2023. Path ology consistent for moderately differentiated pulmonary adenocarcinoma. EBUS nondiagnostic for metastasis. Findings compatible with new primary lung cancer. History of squamous cell lung carcinoma, originally diagnosed back in 2019, status post left lower lobectomy. History of herpes zoster and postherpetic neuralgia. History of hypertension. History of hyperlipidemia. Former tobacco dependence. Plan: Plan dated January 01, 2024. The patient had to go back to the operating room for mediastinal bleeding. I did speak to Dr. Zuluaga about this patient. He is postoperative day #2, status post right lower lobectomy for lung cancer. The patient currently is on amioda edie 0.5 mg/min, for atrial fibrillation/RVR. The patient is on room air. Saturations are 90 to 91%. He is getting D5 with half-normal saline at 50 cc an hour. Blood gases from yesterday showed a pO2 of 82, pCO2 of 51, and a pH of 7.31. Labs, x-rays, and medications are reviewed. We will continue to follow make recommendations along the way. Time with Patient: Greater than 30
[2024-01-01] MEDS: HYDROmorphone 0.5 MG/0.5 ML SYRINGE IVP PRN (10:54)
--- NOTE | 2024-01-01 17:35 | CDI ---
Documentation Clarification Form Date: 01/01/2024 04:52:00 PM From: Sri Velez RN, CCDS Phone: [phone] Admit Date: 12/30/2023 06:17:00 AM Patient Name: Alan Aldana Visit Number: [id number] Discharge Date: ATTENTION: The Clinical Documentation Specialists (CDI) and [facility] Coding Staff appreciate your assistance in clarifying documentation. Please respond to the clarification below the line at the bottom and electronically sign. The CDI & [facility] Coding staff will review the response and follow-up if needed. Please note: Queries are made part of the Legal Health Record. If you have any questions, please contact the author of this message via ITS. : Kailey MOSHER Postoperative hemorrhage, hemothorax, no active bleeding is documented in the progress note on 12/31/24 and patient had robotic assisted thoracoscopic right lower lobectomy with mediastinal lymph node dissection on 12/28/27. Additional clarification is requested regarding the relationship, if any, that exists between the diagnosis and the procedure. Patients Admitting Lung cancer right lower lobe. Post-Operative Diagnosis: same Procedure performed: Robotic assisted thoracoscopic right lower lobectomy with mediastinal lymph node dissection History/Risk Factors: Clinical Indicators: 63-year-old male with history of left upper lobe carcinoma several years ago status post lobectomy presents at this time with a new right lower lobe tumor. Stage I carcinoma. 12/30 Chest tube had drained 500cc of bobby blood in less than 1 hour. Chest x- ray was unremarkable He was taken for Right thoracoscopy with evacuation of hemothorax. There was no evidence of active bleeding from any of the hilar structures, or chest wall access sites. Once the blood was evacuated there was no evidence of ongoing collection within the chest cavity. Estimated blood loss 50 ml Treatment: Right thoracoscopy with evacuation of hemothorax Right chest tube X2 Monitor chest tube output per protocol What relationship, if any, exists between the diagnosis of postoperative hemorrhage, hemothorax not active bleeding and the procedure? [ ] Postoperative hemorrhage, hemothorax is a complication of surgical procedure. [ ] Postoperative hemorrhage, hemothorax is an expected outcome of the surgical procedure [ x] Postoperative hemorrhage, hemothorax is related to clotted blood in the plural space. On evacuation of the clot there was no evidence of active bleeding [lung cancer, fibrinolysis from retained blood] & not a complication of the procedure [ ] Postoperative hemorrhage, hemothorax has been ruled out [ ] Other please specify ____ [ ] Unable to determine (Template Last Revised: June 2020) MTDD
[2024-01-02 04:50] LABS: HCT 28.6 % (39.0-53.0); HGB 9.8 gm/dL (13.0-17.5); MCH 34.6 pg (25.0-35.0); MCHC 34.2 g/dL (31.0-37.0); MCV 101.4 fL (80.0-100.0); Macrocytosis Slight; Mean Platelet Volume 9.3; Platelet Count 213 k/uL (150-450); RBC 2.82 m/uL (4.30-5.90); RDW 14.7 % (11.5-15.5); WBC 11.5 k/uL (3.8-10.6)
[2024-01-02 05:13] LABS: African American GFR (CKD) >90 (>60 ml/min/1.73 sqM); Anion Gap 6 mmol/L; Blood Urea Nitrogen 17 mg/dL (9-20); Calcium 9.2 mg/dL (8.4-10.2); Carbon Dioxide 23 mmol/L (22-30); Chloride 104 mmol/L (98-107); Glucose 109 mg/dL (74-99); Non-African American GFR(CKD) >90 (>60 ml/min/1.73 sqM); Potassium 4.1 mmol/L (3.5-5.1); Sodium 133 mmol/L (137-145)
[2024-01-02] MEDS: METOCLOPRAMIDE 5 MG/ML 2 ML VIAL IVP STA (06:36)
--- NOTE | 2024-01-02 06:50 | P.PN ---
Subjective Progress Note Date: 01/02/24 Principal diagnosis: Lung cancer right lower lobe. History of previous squamous cell carcinoma in 2019 status post left lower lobectomy along with chemo/radiation, hypertension, hyperlipidemia, herpes zoster and postherpetic neuralgia, previous tobacco dependence, mild COPD POD #3 robotic assisted thoracoscopic right lower lobectomy with mediastinal lymph node dissection Postoperative hemorrhage, hemothorax, no active bleeding POD #2 right thoracoscopy with evacuation of hemothorax Paroxysmal atrial fibrillation, unexpected, currently sinus The patient was seen and examined this morning sitting up in recliner on the intensive care unit in no acute distress. He does complain of expected postsurgical pain which is better controlled with additional pain medication. Denies significant shortness of breath. Currently in sinus rhythm and hemodynamically stable. No further atrial fibrillation. Right pleural chest tube present to continuous wall suction with air leak present with forceful coughing. Chest x-ray, labs reviewed. He is currently on room air with oxygen saturation in the high 90s, able to achieve 2500 mL on his incentive spirometry. No other new concerns. Objective - Vital Signs Vital signs: Vital Signs Temp 98.3 F 01/02/24 04:00 Pulse 90 01/02/24 04:00 Resp 24 01/02/24 04:00 BP 123/73 01/02/24 04:00 Pulse Ox 98 01/02/24 04:00 FiO2 Intake & Output 01/01/24 01/01/24 01/02/24 06:59 18:59 06:59 Intake Total 1149.6 739.8 240 Output Total 2770 375 350 Balance -1620.4 364.8 -110 Weight 85.5 kg Intake: Intake, IV Titration 1149.6 159.8 Amount Amiodarone 360 mg In 399.6 Dextrose 5% in Water 200 ml @ 1 MG/MIN 33.333 mls/ hr IV .Q6H ONE Rx#: [id number] Amiodarone 450 mg In 49.8 Dextrose 5% in Water 250 ml @ 0.5 MG/MIN 16.667 mls/hr IV .Q15H [facility] Rx#: [id number] Dextrose 5%-0.45% NaCl 1, 650 110 000 ml @ 0 mls/hr IV .STK -MED ONE Rx#:[id number] Magnesium Sulfate-D5w Pmx 100 1 gm In Dextrose/Water 1 100ml.bag @ 100 mls/hr IVPB ONCE ONE Rx#: [id number] Oral 580 240 Output: Chest Tube Drainage 260 120 100 Chest Tube Right Lateral 260 120 100 Chest Drainage 820 Right Chest 820 Urine 1690 255 250 Other: Voiding Method Indwelling Catheter Indwelling Catheter Indwelling Catheter ABP, PAP, CO, CI - Last Documented Arterial Blood Pressure 150/49 - Exam CONSTITUTIONAL: Appears comfortable, cooperative, no acute distress RESPIRATORY: Lungs sounds diminished bilaterally. Respirations even, nonla bored. Currently on room air with oxygen saturation 98%. Able to achieve 2500 mL on incentive spirometry. Strong cough. CARDIOVASCULAR: S1, S2 present. Regular rate and rhythm, sinus rhythm on telemetry. Palpable peripheral pulses bilaterally. No edema present. No calf pain or tenderness noted. SCDs present. GASTROINTESTINAL: Abdomen soft, nontender, nondistended. Active bowel sounds present 4 quadrants. Tolerating diet. Positive flatus GENITOURINARY: Myrick continued yesterday, patient has voided INTEGUMENTARY: Skin is warm and dry with evidence of good perfusion. Thoracic incision well approximated and covered with dry intact dressing. NEUROLOGIC: Cranial nerves II through XII intact MUSKULOSKELETAL: Able to move all extremities, strength equal bilaterally PSYCHIATRIC: Alert and oriented to person place and time, appropriate affect, intact judgment and insight INVASIVE LINES AND TUBES: Right pleural chest tubes present waterseal, air leaks present with forceful coughing, 250 mL serosanguineous drainage in the last 24 hours - Allied health notes Allied health notes reviewed: nursing - Labs CBC & Chem 7: 01/02/24 04:29 01/02/24 04:24 Labs: Abnormal Lab Results - Last 24 Hours (Table) 12/31/23 01/02/24 01/02/24 Range/Units 07:33 04:24 04:29 WBC 11.5 H (3.8-10.6) k/uL RBC 2.82 L (4.30-5.90) m/uL Hgb 9.8 L (13.0-17.5) gm/dL Hct 28.6 L (39.0-53.0) % MCV 101.4 H (80.0-100.0) fL Sodium 133 L (137-145) mmol/L Glucose 109 H (74-99) mg/dL Crossmatch See Detail - Imaging and Cardiology Chest x-ray: image reviewed Assessment and Plan Assessment: Lung cancer right lower lobe, status post robotic assisted thoracoscopic right lower lobectomy with mediastinal lymph node dissection, moderately differentiated pulmonary adenocarcinoma with acinar pattern on transbronchial biopsy, final pathology pending Postoperative hemorrhage, hemothorax, no active bleeding, status post right thoracoscopy with evacuation of hemothorax Paroxysmal atrial fibrillation, unexpected, currently sinus History of previous squamous cell carcinoma in 2019 status post left lower lobectomy along with chemo/radiation Hypertension Hyperlipidemia Herpes zoster and postherpetic neuralgia Previous tobacco dependence Mild COPD Plan: Continue right pleural chest tube to waterseal, monitor for airleak resolution Continue amiodarone for A-fib prophylaxis Continue home medications, continue hydralazine for better blood pressure control Pain control with current medication regimen, will change tramadol to [place] Increase activity, ambulate as tolerated Encourage incentive spirometry use 10 times every hour while awake Will monitor daily labs and x-rays Will give IV reglan, refused suppository yesterday Transfer orders paced yesterday for [facility] [address], no bed currently available, may transfer when bed available More recommendations to follow
--- NOTE | 2024-01-02 07:15 | XR ---
EXAMINATION TYPE: XR chest 2V DATE OF EXAM: 01/02/2024 COMPARISON: 01/01/2024 INDICATION: Status post lobectomy TECHNIQUE: Frontal and lateral views of the chest are obtained. FINDINGS: The heart size is normal. The pulmonary vasculature is normal. Minimal infiltrate at the right base. Correlate for atelectasis.. Right side chest tube remains in position. There appears to be some minimal pneumothorax at the right costophrenic angle. Second right-sided chest tube is present at the right base. Small posterior pleu ral fluid is present. IMPRESSION: 1. There may be some minimal pneumothorax at the right costophrenic angle. 2. Small right pleural effusion. 3. 2 right-sided chest tubes stable in position. 4. Mild atelectasis right lung base [facility], , 01/02/2024 7:13 AM
[2024-01-02] MEDS: bisacodyL 10 MG SUPP RECTAL PRN (09:14)
--- NOTE | 2024-01-02 09:22 | P.PN ---
Subjective Progress Note Date: 01/02/24 Principal diagnosis: Lobectomy. Patient is a 63-year-old male with past medical history significant for previous squamous cell lung cancer diagnosed back in 2019 status post left lower lobectomy and completed chemoradiation. Follow-up PET scan done 07/30/2023 demonstrating a an enlarging cavitating right lower lobe nodule suspicious for disease recurrence. Dr. Klein did take the patient for robotic assisted bronchoscopy with transbronchial biopsies on 08/27/2023. Pathology consistent for moderately differentiated pulmonary adenocarcinoma. EBUS nondiagnostic for metastasis. Findings compatible with new primary lung cancer. Patient is status post 3 rounds of chemotherapy. His established oncologist is Dr. Murray. Brought in for robotic assisted thorascopic right lower lobectomy with mediastinal lymph node dissection yesterday. No perioperative complications reported. Patient is recovering on the cardiac stepdown unit. He is resting comfortably on 2 L/min nasal cannula. Right chest tube currently to waterseal. No air leak at this time. There is 120 mL of serosanguineous output in the chamber. Postoperative chest x-ray shows the right thoracotomy tube without any obvious pneumothorax on the right. Postoperative pain appears well-managed at this time. He does report some residual postherpetic neuralgia from previous shingles flare, on the left T5 or T6 dermatome. States he previously tried multiple different medications, and none of them worked. Incentive spirometer is at bedside. Achieves approximately 1500. D5W/1 half-normal saline infusing at 50 mL/h. Appears stable and progressing well. Progress note dated January 01, 2024. This is a 63-year-old male postop day #2, status post right lower lobectomy. The patient has a history of adenocarcinoma. Unfortunately, because of mediastinal bleeding, he had to go back to the operating room. I did speak to Dr. Zuluaga about this patient's case. The patient is currently seen today in room 254. The patient is on room air. He is getting D5 with half-normal saline at 50 cc an hour. He did develop atrial fibrillation, and for that reason was placed on amiodarone at 0.5 mg/min. Other than pain, the patient is doing well without complaints. White count 10.1, hemoglobin 9.3, hematocrit 28.3, platelet count normal. Sodium 135, potassium 3.6, chlorides 103, CO2 26, BUN 8, creatinine 0.59. Glucose is 160. Chest x-ray shows 2 right-sided chest tubes, and right lower lobe infiltrate or atelectasis. Progress note dated January 02, 2024. 63-year-old male, seen in room 254. He is postoperative day #3, status post right lower lobectomy. The patient has a history of adenocarcinoma. The patient is doing relatively well. He sitting in the chair next to the hospital bed. He is currently on room air. He is not receiving any IV fluids. He had an uneventful night. He does have a leak from the right sided chest tube, with either deep breathing, or coughing. Labs include a white count 11.5, hemoglobin 9.8, hematocrit 28.6, and a normal platelet count. Sodium 133, potassium 4.1, chlorides 104, CO2 23, BUN 17, creatinine 0.77. Glucose is 109. Calcium is 9 .2. Chest x-ray shows a minimal pneumothorax at the right costophrenic angle, small right-sided pleural effusion, and atelectasis at the right lung base, as well as chest tube. Objective - Vital Signs Vital signs: Vital Signs Temp 98.3 F 01/02/24 04:00 Pulse 84 01/02/24 08:49 Resp 24 01/02/24 04:00 BP 123/73 01/02/24 04:00 Pulse Ox 99 01/02/24 08:39 FiO2 Intake & Output 01/01/24 01/02/24 01/02/24 18:59 06:59 18:59 Intake Total 739.8 240 Output Total 375 350 Balance 364.8 -110 Intake: Intake, IV Titration 159.8 Amount Amiodarone 450 mg In 49.8 Dextrose 5% in Water 250 ml @ 0.5 MG/MIN 16.667 mls/hr IV .Q15H [facility] Rx#: [id number] Dextrose 5%-0.45% NaCl 1, 110 000 ml @ 0 mls/hr IV .STK -MED ONE Rx#:[id number] Oral 580 240 Output: Chest Tube Drainage 120 100 Chest Tube Right Lateral 120 100 Chest Urine 255 250 Other: Voiding Method Indwelling Catheter Indwelling Catheter ABP, PAP, CO, CI - Last Documented Arterial Blood Pressure 150/49 - Exam No acute distress, oriented 3. Currently on room air. No respiratory dist ress. HEENT examination is grossly unremarkable. Mucous membranes are moist. No oral lesions. Neck supple. Full range of motion. No adenopathy thyromegaly or neck vein distention. Cardiovascular examination reveals regular rhythm rate. S1-S2 normal. No S3 or S4. No discernible murmur noted. Lungs reveal scattered bilateral rhonchi. No wheezes or crackles. Breath sounds equal. Right sided chest tubes are noted. Abdomen soft bowel sounds are heard. No masses or tenderness. Extremities are intact. No cyanosis clubbing or edema. Skin is without rash or lesion. Neurologic examination is brief but nonfocal. - Labs CBC & Chem 7: 01/02/24 04:29 01/02/24 04:24 Labs: Abnormal Lab Results - Last 24 Hours (Table) 12/31/23 01/02/24 01/02/24 Range/Units 07:33 04:24 04:29 WBC 11.5 H (3.8-10.6) k/uL RBC 2.82 L (4.30-5.90) m/uL Hgb 9.8 L (13.0-17.5) gm/dL Hct 28.6 L (39.0-53.0) % MCV 101.4 H (80.0-100.0) fL Sodium 133 L (137-145) mmol/L Glucose 109 H (74-99) mg/dL Crossmatch See Detail Assessment and Plan Assessment: Status postoperative day #3 following robotic assisted thorascopic right lower lobectomy with mediastinal lymph node dissection. Postop day #2, status post mediastinal exploration, for bleeding. Acute hypoxemic respiratory failure, currently on room air. Right lower lobe pulmonary nodule, Dr. Klein did take the patient for robotic assisted bronchoscopy with transbronchial biopsies on 08/27/2023. Pathology consistent for moderately differentiated pulmonary adenocarcinoma. EBUS nondiagnostic for metastasis. Findings compatible with new primary lung cancer. History of squamous cell lung carcinoma, originally diagnosed back in 2019, status post left lower lobectomy. History of herpes zoster and postherpetic neuralgia. History of hypertension. History of hyperlipidemia. Former tobacco dependence. Plan: Plan dated January 01, 2024. The patient had to go back to the operating room for mediastinal bleeding. I did speak to Dr. Zuluaga about this patient. He is postoperative day #2, status post right lower lobectomy for lung cancer. The patient currently is on amiodarone 0.5 mg/min, for atrial fibrillation/RVR. The patient is on room air. Saturations are 90 to 91%. He is getting D5 with half-normal saline at 50 cc an hour. Blood gases from yesterday showed a pO2 of 82, pCO2 of 51, and a pH of 7.31. Labs, x-rays, and medications are reviewed. We will continue to follow make recommendations along the way. Plan dated January 02, 2024. The patient appears to be doing very well. Right sided chest tube remains. He does have a leak. He is on room air. No IV fluids. Labs, x-rays, medications are reviewed. We continue to encourage the patient to deep breathe, cough, clear any secretions from the airways. In addition, we do recommend hourly use of the incentive spirometer. We will continue to follow. Prognosis is guarded. Time with Patient: Less than 30
[2024-01-02] MEDS: HYDROcodone/APAP 5-325MG 1 EACH TAB PO PRN (18:24)
[2024-01-02] MEDS: DEXTROSE 5% IN WATER 100 ML with AMIODARONE 150 MG IV ONE (22:40)
[2024-01-03] MEDS: HYDROcodone/APAP 10-325MG 1 EACH TAB PO PRN (02:40)
[2024-01-03] MEDS: ONDANSETRON 4 MG/2 ML VIAL IVP PRN (03:31)
[2024-01-03 06:19] LABS: HCT 27.7 % (39.0-53.0); HGB 9.5 gm/dL (13.0-17.5); MCHC 34.4 g/dL (31.0-37.0); MCV 101.7 fL (80.0-100.0); Macrocytosis Slight; Mean Platelet Volume 9.4; Platelet Count 216 k/uL (150-450); RBC 2.73 m/uL (4.30-5.90); WBC 6.9 k/uL (3.8-10.6)
[2024-01-03 06:34] LABS: African American GFR (CKD) >90 (>60 ml/min/1.73 sqM); Anion Gap 5 mmol/L; Blood Urea Nitrogen 15 mg/dL (9-20); Carbon Dioxide 24 mmol/L (22-30); Chloride 105 mmol/L (98-107); Glucose 149 mg/dL (74-99); Non-African American GFR(CKD) >90 (>60 ml/min/1.73 sqM); Potassium 3.9 mmol/L (3.5-5.1); Sodium 134 mmol/L (137-145)
--- NOTE | 2024-01-03 07:29 | XR ---
EXAMINATION TYPE: XR chest 2V DATE OF EXAM: 01/03/2024 COMPARISON: 01/02/2024 INDICATION: Post lobectomy TECHNIQUE: Frontal and lateral views of the chest are obtained. FINDINGS: The heart size is normal. The pulmonary vasculature is normal. The lungs are clear. 2 right-sided chest tubes remain present. No pneumothorax is evident. Cutaneous emphysema remains present IMPRESSION: 1. No acute pulmonary process. 2. Right-sided chest tubes stable in position [facility], , 01/03/2024 7:26 AM
--- NOTE | 2024-01-03 08:07 | P.PN ---
Subjective Progress Note Date: 01/03/24 Principal diagnosis: Lung cancer right lower lobe. History of previous squamous cell carcinoma in 2019 status post left lower lobectomy along with chemo/radiation, hypertension, hyperlipidemia, herpes zoster and postherpetic neuralgia, previous tobacco dependence, mild COPD POD #4 robotic assisted thoracoscopic right lower lobectomy with mediastinal lymph node dissection Postoperative hemorrhage, hemothorax, no active bleeding POD #2 right thoracoscopy with evacuation of hemothorax Paroxysmal atrial fibrillation, unexpected, currently sinus The patient was seen and examined this morning sitting up in recliner on the intensive care unit in no acute distress. He does complain of expected postsurgical pain which is better controlled with change from tramadol to norco. Denies significant shortness of breath. Does complain of feeling bloated, does have history of lactose intolerance. Currently in sinus rhythm and hemodynamically stable although did have brief episode of rapid afib after walking last evening. Right pleural chest tube present to continuous wall suction no air leak present this morning for me although he did have an air leak for Dr. Malik. Chest x-ray, labs reviewed. He is currently on room air with oxygen saturation in the high 90s, able to achieve 2250 mL on his incentive spirometry. No other new concerns. Objective - Vital Signs Vital signs: Vital Signs Temp 98.1 F 01/03/24 07:58 Pulse 86 01/03/24 07:58 Resp 18 01/03/24 07:58 BP 121/74 01/03/24 07:58 Pulse Ox 95 01/03/24 07:58 FiO2 Intake & Output 01/02/24 01/03/24 01/03/24 18:59 06:59 18:59 Output Total 80 1010 Balance -80 -1010 Weight 85.7 kg 83.3 kg Output: Chest Tube Drainage 80 110 Chest Tube Right Lateral 80 110 Chest Urine 900 Other: Voiding Method Toilet Toilet Urinal Urinal # Voids 4 # Bowel Movements 2 ABP, PAP, CO, CI - Last Documented Arterial Blood Pressure 150/49 - Exam CONSTITUTIONAL: Appears comfortable, cooperative, no acute distress RESPIRATORY: Lungs sounds diminished bilaterally. Respirations even, nonlabored. Currently on room air with oxygen saturation 95%. Able to achieve 2250 mL on incentive spirometry. Strong cough. CARDIOVASCULAR: S1, S2 present. Regular rate and rhythm, sinus rhythm on telemetry. Palpable peripheral pulses bilaterally. No edema present. No calf pain or tenderness noted. SCDs present. GASTROINTESTINAL: Abdomen soft, nontender, nondistended. Active bowel sounds present 4 quadrants. Tolerating diet. Positive BM 01/01 GENITOURINARY: Continues to void INTEGUMENTARY: Skin is warm and dry with evidence of good perfusion. Thoracic incision well approximated and covered with dry intact dressing. NEUROLOGIC: Cranial nerves II through XII intact MUSKULOSKELETAL: Able to move all extremities, strength equal bilaterally PSYCHIATRIC: Alert and oriented to person place and time, appropriate affect, intact judgment and insight INVASIVE LINES AND TUBES: Right pleural chest tubes present to waterseal, no air leak present this morning, 110 mL serosanguineous drainage overnight, 200 mL in the last 24 hours - Allied health notes Allied health notes reviewed: nursing - Labs CBC & Chem 7: 01/03/24 05:59 01/03/24 05:59 Labs: Abnormal Lab Results - Last 24 Hours (Table) 01/03/24 01/03/24 Range/Units 05:59 05:59 RBC 2.73 L (4.30-5.90) m/uL Hgb 9.5 L (13.0-17.5) gm/dL Hct 27.7 L (39.0-53.0) % MCV 101.7 H (80.0-100.0) fL Sodium 134 L (137-145) mmol/L Glucose 149 H (74-99) mg/dL - Imaging and Cardiology Chest x-ray: report reviewed, image reviewed Assessment and Plan Assessment: Lung cancer right lower lobe, status post robotic assisted thoracoscopic right lower lobectomy with mediastinal lymph node dissection, moderately differentiated pulmonary adenocarcinoma with acinar pattern on transbronchial biopsy, final pathology pending Postoperative hemorrhage, hemothorax, no active bleeding, status post right thoracoscopy with evacuation of hemothorax Paroxysmal atrial fibrillation, unexpected, currently sinus History of previous squamous cell carcinoma in 2019 status post left lower lobectomy along with chemo/radiation Hypertension Hyperlipidemia Herpes zoster and postherpetic neuralgia Previous tobacco dependence Mild COPD Plan: Continue chest tube for another 24 hours, clamp at 6 AM prior to morning x-ray Continue amiodarone for A-fib prophylaxis Continue home medications, lopressor changed to short acting and increased, continue hydralazine for better blood pressure control Pain control with current medication regimen Increase activity, ambulate as tolerated Encourage incentive spirometry use 10 times every hour while awake Will monitor daily labs and x-rays Transfer orders paced for 3 South, no bed currently available, may transfer when bed available More recommendations to follow
[2024-01-03] MEDS: METOPROLOL TARTRATE 25 MG TAB PO SCH (08:29)
--- NOTE | 2024-01-03 10:21 | P.PN ---
Subjective Progress Note Date: 01/03/24 Principal diagnosis: Lobectomy. Patient is a 63-year-old male with past medical history significant for previous squamous cell lung cancer diagnosed back in 2019 status post left lower lobectomy and completed chemoradiation. Follow-up PET scan done 07/30/2023 demonstrating a an enlarging cavitating right lower lobe nodule suspicious for disease recurrence. Dr. Klein did take the patient for robotic assisted bronchoscopy with transbronchial biopsies on 08/27/2023. Pathology consistent for moderately differentiated pulmonary adenocarcinoma. EBUS nondiagnostic for metastasis. Findings compatible with new primary lung cancer. Patient is status post 3 rounds of chemotherapy. His established oncologist is Dr. Murray. Brought in for robotic assisted thorascopic right lower lobectomy with mediastinal lymph node dissection yesterday. No perioperative complications reported. Patient is recovering on the cardiac stepdown unit. He is resting comfortably on 2 L/min nasal cannula. Right chest tube currently to waterseal. No air leak at this time. There is 120 mL of serosanguineous output in the chamber. Postoperative chest x-ray shows the right thoracotomy tube without any obvious pneumothorax on the right. Postoperative pain appears well-managed at this time. He does report some residual postherpetic neuralgia from previous shingles flare, on the left T5 or T6 dermatome. States he previously tried multiple different medications, and none of them worked. Incentive spirometer is at bedside. Achieves approximately 1500. D5W/1 half-normal saline infusing at 50 mL/h. Appears stable and progressing well. Progress note dated January 01, 2024. This is a 63-year-old male postop day #2, status post right lower lobectomy. The patient has a history of adenocarcinoma. Unfortunately, because of mediastinal bleeding, he had to go back to the operating room. I did speak to Dr. Zuluaga about this patient's case. The patient is currently seen today in room 254. The patient is on room air. He is getting D5 with half-normal saline at 50 cc an hour. He did develop atrial fibrillation, and for that reason was placed on amiodarone at 0.5 mg/min. Other than pain, the patient is doing well without complaints. White count 10.1, hemoglobin 9.3, hematocrit 28.3, platelet count normal. Sodium 135, potassium 3.6, chlorides 103, CO2 26, BUN 8, creatinine 0.59. Glucose is 160. Chest x-ray shows 2 right-sided chest tubes, and right lower lobe infiltrate or atelectasis. Progress note dated January 02, 2024. 63-year-old male, seen in room 254. He is postoperative day #3, status post right lower lobectomy. The patient has a history of adenocarcinoma. The patient is doing relatively well. He sitting in the chair next to the hospital bed. He is currently on room air. He is not receiving any IV fluids. He had an uneventful night. He does have a leak from the right sided chest tube, with either deep breathing, or coughing. Labs include a white count 11.5, hemoglobin 9.8, hematocrit 28.6, and a normal platelet count. Sodium 133, potassium 4.1, chlorides 104, CO2 23, BUN 17, creatinine 0.77. Glucose is 109. Calcium is 9 .2. Chest x-ray shows a minimal pneumothorax at the right costophrenic angle, small right-sided pleural effusion, and atelectasis at the right lung base, as well as chest tube. Progress note dated January 03, 2024. 63-year-old male seen in room 254. He is postoperative day #4, status post righ t lower lobectomy. The patient has a history of adenocarcinoma. He is doing relatively well. He still has an air leak from his chest tube. He is on room air. Is not receiving any IV fluids. White count 6.9, hemoglobin 9.5, hematocrit 27.7, platelet count is normal. Sodium 134, potassium 3.9, chlorides 105, CO2 24, BUN 15, creatinine 0.77. Calcium is 9.0. Chest x-ray shows a right-sided chest tube, but no acute process. Objective - Vital Signs Vital signs: Vital Signs Temp 98.1 F 01/03/24 07:58 Pulse 95 01/03/24 08:04 Resp 18 01/03/24 07:58 BP 121/74 01/03/24 07:58 Pulse Ox 95 01/03/24 07:58 FiO2 Intake & Output 01/02/24 01/03/24 01/03/24 18:59 06:59 18:59 Output Total 80 1010 Balance -80 -1010 Weight 85.7 kg 83.3 kg Output: Chest Tube Drainage 80 110 Chest Tube Right Lateral 80 110 Chest Urine 900 Other: Voiding Method Toilet Toilet Urinal Urinal Urinal # Voids 4 # Bowel Movements 2 ABP, PAP, CO, CI - Last Documented Arterial Blood Pressure 150/49 - Exam No acute distress, oriented 3. Currently on room air. No respiratory distress. HEENT examination is grossly unremarkable. Mucous membranes are moist. No oral lesions. Neck supple. Full range of motion. No adenopathy thyromegaly or neck vein distention. Cardiovascular examination reveals regular rhythm rate. S1-S2 normal. No S3 or S4. No discernible murmur noted. Lungs reveal scattered bilateral rhonchi. No wheezes or crackles. Breath sounds equal. Right sided chest tubes are noted. Abdomen soft bowel sounds are heard. No masses or tenderness. Extremities are intact. No cyanosis clubbing or edema. Skin is without rash or lesion. Neurologic examination is brief but nonfocal. - Labs CBC & Chem 7: 01/03/24 05:59 01/03/24 05:59 Labs: Abnormal Lab Results - Last 24 Hours (Table) 01/03/24 01/03/24 Range/Units 05:59 05:59 RBC 2.73 L (4.30-5.90) m/uL Hgb 9.5 L (13.0-17.5) gm/dL Hct 27.7 L (39.0-53.0) % MCV 101.7 H (80.0-100.0) fL Sodium 134 L (137-145) mmol/L Glucose 149 H (74-99) mg/dL Assessment and Plan Assessment: Status postoperative day #4 following robotic assisted thorascopic right lower lobectomy with mediastinal lymph node dissection. Postop day #3, status post mediastinal exploration, for bleeding. Acute hypoxemic respiratory failure, currently on room air. Right lower lobe pulmonary nodule, Dr. Klein did take the patient for robotic assisted bronchoscopy with transbronchial biopsies on 08/27/2023. Pathology consistent for moderately differentiated pulmonary adenocarcinoma. EBUS nondiagnostic for metastasis. Findings compatible with new primary lung cancer. History of squamous cell lung carcinoma, originally diagnosed back in 2019, status post left lower lobectomy. History of herpes zoster and postherpetic neuralgia. History of hypertension. History of hyperlipidemia. Former tobacco dependence. Plan: Plan dated January 01, 2024. The patient had to go back to the operating room for mediastinal bleeding. I did speak to Dr. Zuluaga about this patient. He is postoperative day #2, status post right lower lobectomy for lung cancer. The patient currently is on amiodarone 0.5 mg/min, for atrial fibrillation/RVR. The patient is on room air. Saturations are 90 to 91%. He is getting D5 with half-normal saline at 50 cc an hour. Blood gases from yesterday showed a pO2 of 82, pCO2 of 51, and a pH of 7.31. Labs, x-rays, and medications are reviewed. We will continue to follow make recommendations along the way. Plan dated January 02, 2024. The patient appears to be doing very well. Right sided chest tube remains. He does have a leak. He is on room air. No IV fluids. Labs, x-rays, medications are reviewed. We continue to encourage the patient to deep breathe, cough, clear any secretions from the airways. In addition, we do recommend hourly use of the incentive spirometer. We will continue to follow. Prognosis is guarded. Plan dated January 03, 2024. The patient is seen in room 254. He is on room air. He is not receiving any IV fluids. There is a leak from his right sided chest tube. Surgery is not plann ing to remove that tube at this time. He is postoperative day #4. Labs, x- rays, medications are reviewed. Clinically, the patient is relatively stable. We will continue to follow. Prognosis is guarded. Time with Patient: Less than 30
[2024-01-04 06:13] LABS: HCT 29.3 % (39.0-53.0); HGB 9.8 gm/dL (13.0-17.5); MCH 34.3 pg (25.0-35.0); MCHC 33.3 g/dL (31.0-37.0); Macrocytosis Slight; Mean Platelet Volume 8.7; Platelet Count 261 k/uL (150-450); RBC 2.84 m/uL (4.30-5.90); RDW 15.4 % (11.5-15.5)
[2024-01-04 06:29] LABS: African American GFR (CKD) >90 (>60 ml/min/1.73 sqM); Anion Gap 8 mmol/L; Blood Urea Nitrogen 15 mg/dL (9-20); Calcium 9.5 mg/dL (8.4-10.2); Carbon Dioxide 24 mmol/L (22-30); Chloride 104 mmol/L (98-107); Glucose 142 mg/dL (74-99); Non-African American GFR(CKD) >90 (>60 ml/min/1.73 sqM); Potassium 4.3 mmol/L (3.5-5.1); Sodium 136 mmol/L (137-145)
--- NOTE | 2024-01-04 07:32 | P.PN ---
Subjective Progress Note Date: 01/04/24 Principal diagnosis: Lung cancer right lower lobe. History of previous squamous cell carcinoma in 2019 status post left lower lobectomy along with chemo/radiation, hypertension, hyperlipidemia, herpes zoster and postherpetic neuralgia, previous tobacco dependence, mild COPD POD #5 robotic assisted thoracoscopic right lower lobectomy with mediastinal lymph node dissection Postoperative hemorrhage, hemothorax, no active bleeding POD #3 right thoracoscopy with evacuation of hemothorax Paroxysmal atrial fibrillation, unexpected, currently sinus The patient was seen and examined this morning sitting up in recliner on the intensive care unit in no acute distress. States postsurgical pain is controlled on current medication regimen, has not needed IV Dilaudid in over 24 hours. Denies significant shortness of breath. Currently in sinus rhythm and hemodynamically stable. Right pleural chest tube present, clamped this morning. Chest x-ray, labs reviewed. He is currently on room air with oxygen saturation in the 90s, able to achieve 2500 mL on his incentive spirometry. Has been ambulatory in the hallway without difficulty. States today is the best he has felt the whole time he has been here. Wants to go home. No other new concerns. Objective - Vital Signs Vital signs: Vital Signs Temp 98.3 F 01/04/24 03:44 Pulse 91 01/04/24 03:44 Resp 14 01/04/24 03:44 BP 155/80 01/04/24 03:44 Pulse Ox 92 L 01/04/24 03:44 FiO2 Intake & Output 01/03/24 01/04/24 01/04/24 18:59 06:59 18:59 Output Total 960 Balance -960 Weight 83.3 kg 83 kg Output: Chest Tube Drainage 60 Chest Tube Right Lateral 60 Chest Urine 900 Other: Voiding Method Toilet Toilet ABP, PAP, CO, CI - Last Documented Arterial Blood Pressure 150/49 - Exam CONSTITUTIONAL: Appears comfortable, cooperative, no acute distress RESPIRATORY: Lungs sounds diminished bilaterally. Respirations even, nonlabored. Currently on room air with oxygen saturation 92%. Able to achieve 2500 mL on incentive spirometry. Strong cough. CARDIOVASCULAR: S1, S2 present. Regular rate and rhythm, sinus rhythm on telemetry. Palpable peripheral pulses bilaterally. No edema present. No calf pain or tenderness noted. SCDs present. GASTROINTESTINAL: Abdomen soft, nontender, nondistended. Active bowel sounds present 4 quadrants. Tolerating diet. Positive BM 01/01 GENITOURINARY: Continues to void INTEGUMENTARY: Skin is warm and dry with evidence of good perfusion. Thoracic incision well approximated and covered with dry intact dressing. NEUROLOGIC: Cranial nerves II through XII intact MUSKULOSKELETAL: Able to move all extremities, strength equal bilaterally PSYCHIATRIC: Alert and oriented to person place and time, appropriate affect, intact judgment and insight INVASIVE LINES AND TUBES: Right pleural chest tubes present, clamped, 60 mL serosanguineous drainage overnight, 300 mL in the last 24 hours - Allied health notes Allied health notes reviewed: nursing - Labs CBC & Chem 7: 01/04/24 05:37 01/04/24 05:37 Labs: Abnormal Lab Results - Last 24 Hours (Table) 01/04/24 01/04/24 Range/Units 05:37 05:37 RBC 2.84 L (4.30-5.90) m/uL Hgb 9.8 L (13.0-17.5) gm/dL Hct 29.3 L (39.0-53.0) % MCV 103.0 H (80.0-100.0) fL Sodium 136 L (137-145) mmol/L Glucose 142 H (74-99) mg/dL - Imaging and Cardiology Chest x-ray: image reviewed Assessment and Plan Assessment: Lung cancer right lower lobe, status post robotic assisted thoracoscopic right lower lobectomy with mediastinal lymph node dissection, moderately differentiated pulmonary adenocarcinoma with acinar pattern on transbronchial biopsy, final pathology pending Postoperative hemorrhage, hemothorax, no active bleeding, status post right thoracoscopy with evacuation of hemothorax Paroxysmal atrial fibrillation, unexpected, currently sinus History of previous squamous cell carcinoma in 2019 status post left lower lobectomy along with chemo/radiation Hypertension Hyperlipidemia Herpes zoster and postherpetic neuralgia Previous tobacco dependence Mild COPD Plan: Chest tube unclamped, no air leak present, chest tubes dicontinued without incident Continue amiodarone for A-fib prophylaxis Continue lopressor, increased to 50 mg twice daily today, continue hydralazine for better blood pressure control Pain control with current medication regimen Increase activity, ambulate as tolerated Encourage incentive spirometry use 10 times every hour while awake Will recheck CXR, if stable will DC this afternoon vs. tomorrow morning Transfer orders paced for 3 South, no bed currently available More recommendations to follow
--- NOTE | 2024-01-04 07:43 | XR ---
EXAMINATION TYPE: PA and lateral view of the chest DATE OF EXAM: 01/04/2024 COMPARISON: 01/03/2024 TECHNIQUE: PA and lateral views submitted. HISTORY: Postop FINDINGS: Subcutaneous air and small right apical pneumothorax measuring approximately 5% is noted. Chest tube noted. Volume loss compatible surgery. Left lung demonstrates left basilar linear atelectasis. Osseou s structures are stable. Atherosclerotic change aorta. IMPRESSION: 1. Postoperative change with small less than 5% right apical pneumothorax.. [facility], , 01/04/2024 7:40 AM
[2024-01-04] MEDS: METOPROLOL TARTRATE 50 MG TAB PO SCH (09:07)
[2024-01-04] MEDS: methocarbamoL 750 MG TAB PO PRN (09:56)
--- NOTE | 2024-01-04 12:16 | XR ---
EXAMINATION TYPE: XR chest 2V DATE OF EXAM: 01/04/2024 COMPARISON: 01/04/2024 TECHNIQUE: PA and lateral views submitted. HISTORY: Tube removal FINDINGS: Study was been removed and there is right lower lobe consolidation, small effusion and subcutaneous e mphysema\air. Approximate 5% right apical pneumothorax. Subsegmental changes left lung base. No overt failure. Heart size normal. IMPRESSION: 1. Chest tube removal with stable right apical 5% pneumothorax. 2. Right lower lobe consolidation and small pleural effusion. [facility], , 01/04/2024 12:13 PM
[2024-01-04 12:49] VITALS: BP 105/69; PULSE 89; RESP 20; TEMP 98.8
--- NOTE | 2024-01-04 13:09 | P.DS ---
Providers Date of admission: 12/30/23 06:17 Expected date of discharge: 01/04/24 Attending physician: Patrick Zuluaga Consults: 12/30/23 15:36 Consult Physician Routine Consulting Provider: Chriss Malik Reason/Comments: post lobectomy Do you want consulting provider notified?: Yes Primary care physician: Jayson Aden [facility] Course: FINAL DIAGNOSIS: Lung cancer right lower lobe, moderately differentiated pulmonary adenocarcinoma with acinar pattern on transbronchial biopsy, final pathology pending Postoperative hemorrhage, hemothorax, no active bleeding Paroxysmal atrial fibrillation, unexpected, currently sinus History of previous squamous cell carcinoma in 2019 status post left lower lobectomy along with chemo/radiation Hypertension Hyperlipidemia Herpes zoster and postherpetic neuralgia Previous tobacco dependence Mild COPD PRINCIPAL PROCEDURE: Robotic assisted thoracoscopic right lower lobectomy with mediastinal lymph node dissection Right thoracoscopy with evacuation of hemothorax HISTORY OF PRESENT ILLNESS: This is a 63-year-old gentleman who follows outpatient with Dr. Aden for primary care and Dr Klein for pulmonology. He is known to our service as he had a left lower lobectomy in May 2018 for lung cancer with T4 N1 tumor and R1 resection. There was positive microscopic margin on the PA. He underwent subsequent chemoradiation therapy and has been followed since that time. Recently a mass was noted in the right lower lobe which has been increasing in size over time. Bronchoscopy was performed on 08/27/2023 which was noted to be a nonsmall cell carcinoma having features compatible with moderately differentiated pulmonary adenocarcinoma with an acinar pattern. The previous tumor was a poorly differentiated squamous cell carcinoma, so this appeared to be a new primary. The tumor did have positive uptake on PET. The patient underwent EBUS which was negative for any type of metastatic disease. He did not have significant lymphadenopathy by CT criteria and did not have evidence of right hilar or mediastinal mass on the most recent PET scan. The patient was referred back to Dr. Zuluaga from thoracic surgery. He had already started chemotherapy and was committed to a 9-week course of chemotherapy. Once completed repeat PET scan demonstrated positive response with decrease size of the tumor and no new focal FDG activity. He was recommended to undergo right lower lobectomy. The usual perioperative course was discussed in detail with the patient and his family, all risks and benefits were explained, all questions were answered, and consent was obtained to proceed with surgery. The patient was scheduled for surgery at the earliest possible date. HOSPITAL COURSE: The patient was brought to the hospital on 12/30/23, taken to the preoperative area, prepared in the usual fashion, and subsequently taken to the operating room where Dr. Zuluaga performed robotic assisted thoracoscopic right lower lobectomy. Upon completion of surgery the patient was extubated and taken to the recovery room for further monitoring. He was eventually admitted to 3 S. cardiac stepdown for further recovery. Unfortunately the morning after his surgery he had significant output into his chest tube and was taken urgently back to the operating room for evacuation of hemothorax, no active bleeding was found at that time. Postoperatively he was taken to the intensive care unit where he was recovered and monitored hemodynamically. He continued to be stable except for a brief episode of atrial fibrillation with conversion to sinus rhythm after initiation of amiodarone. Transfer orders were placed for 3 S. cardiac stepdown unit, however there was no bed availability and the patient remained on ICU as a stepdown patient until discharge. His oxygen was titrated down, he was tolerating oral diet, his pain was controlled. His chest tube was removed on postoperative day #5, and he was ready to be discharged to home on postoperative day #5. He received written and verbal instruction regarding his medications, activity restrictions, signs and symptoms requiring physician notification, and follow-up appointments. Patient Condition at Discharge: Stable Plan - Discharge Summary Discharge Rx Participant: No New Discharge Prescriptions: New Aspirin 81 mg PO DAILY #30 tab Amiodarone [Cordarone] 400 mg PO DAILY 14 Days #28 tab hydrALAZINE HCL [Apresoline] 25 mg PO BID #60 tab Metoprolol Tartrate [Lopressor] 50 mg PO BID #60 tab HYDROcodone/APAP 5-325MG [Mcallen 5-325] 1 each PO Q4HR PRN #28 tab PRN Reason: Pain Sennosides-Docusate Sodium [Senokot-S] 2 each PO HS PRN tab PRN Reason: Constipation Continue Atorvastatin [Lipitor] 10 mg PO HS Lanacane 1 applic TOPICAL DIRECTED PRN PRN Reason: Pain Acetaminophen Tab [Tylenol] 500 - 1,000 mg PO Q4-6H PRN PRN Reason: Pain Discontinued Metoprolol Succinate (ER) [Toprol XL] 50 mg PO DAILY traMADol HCL 1 tab PO TID PRN PRN Reason: Pain Discharge Medication List Atorvastatin [Lipitor] 10 mg PO HS 05/27/18 [History] Acetaminophen Tab [Tylenol] 500 - 1,000 mg PO Q4-6H PRN 08/20/23 [History] Lanacane 1 applic TOPICAL DIRECTED PRN 08/20/23 [History] Amiodarone [Cordarone] 400 mg PO DAILY 14 Days #28 tab 01/04/24 [Rx] Aspirin 81 mg PO DAILY #30 tab 01/04/24 [Rx] HYDROcodone/APAP 5-325MG [Mcallen 5-325] 1 each PO Q4HR PRN #28 tab 01/04/24 [Rx] Metoprolol Tartrate [Lopressor] 50 mg PO BID #60 tab 01/04/24 [Rx] Sennosides-Docusate Sodium [Senokot-S] 2 each PO HS PRN tab 01/04/24 [Rx] hydrALAZINE HCL [Apresoline] 25 mg PO BID #60 tab 01/04/24 [Rx] Follow up Appointment(s)/Referral(s): Patrick Zuluaga MD [STAFF PHYSICIAN] - 01/14/24 2:15 pm Julio Kwong MD [STAFF PHYSICIAN] - As Needed Joel Murray MD [STAFF PHYSICIAN] - As Needed Heidi Klein MD [STAFF PHYSICIAN] - 01/18/24 10:30 am Jayson Aden MD [Primary Care Provider] - 1 Week (office will call with appointment) Activity/Diet/Wound Care/Special Instructions: DISCHARGE INSTRUCTIONS: 1. No driving for 2 weeks, or until physician gives their ok. 2. No lifting, pushing, or pulling more than 10 pounds for 2 weeks. The physician will advise of any restriction changes. 3. Continue pain control per as needed orders. Alternate acetaminophen (Tylenol) and ibuprofen (Motrin/Advil) for pain. 4. Continue with incentive spirometry and splinting until otherwise directed by the physician. 5. Leave chest tube dressing for 48 hours. After that, remove all dressings and shower daily. 6. Routine incision care. No powders, lotions, ointments on incisions. 7. Please call surgeon/MANUFACTURING MAINTENANCE MECHANIC for temp greater than 101 F or purulent drainage from incisions. 8. Smoking cessation counseling and program information provided. Quitting smoking is the most important step you can take to improve your health. For additional information and assistance to quit smoking, please call the [place] tobacco quit line (4-047-ZMBX-NOW/ ) or online: [email or web address].gov/[email or web address]-aq-qjwxjzh/chronicdiseases/tobacco/how-to-qu it-tobacco Discharge Disposition: HOME SELF-CARE
--- NOTE | 2024-01-04 15:01 | P.PN ---
Subjective Progress Note Date: 01/04/24 Patient is a 63-year-old male with past medical history significant for previous squamous cell lung cancer diagnosed back in 2019 status post left lower lobectomy and completed chemoradiation. Follow-up PET scan done 07/30/2023 demonstrating a an enlarging cavitating right lower lobe nodule suspicious for disease recurrence. Dr. Klein did take the patient for robotic assisted bronchoscopy with transbronchial biopsies on 08/27/2023. Pathology consistent for moderately differentiated pulmonary adenocarcinoma. EBUS nondiagnostic for metastasis. Findings compatible with new primary lung cancer. Patient is status post 3 rounds of chemotherapy. His established oncologist is Dr. Murray. Brought in for robotic assisted thorascopic right lower lobectomy with mediastinal lymph node dissection yesterday. No perioperative complications reported. Patient is recovering on the cardiac stepdown unit. He is resting comfortably on 2 L/min nasal cannula. Right chest tube currently to waterseal. No air leak at this time. There is 120 mL of serosanguineous output in the chamber. Postoperative chest x-ray shows the right thoracotomy tube without any obvious pneumothorax on the right. Postoperative pain appears well-managed at this time. He does report some residual postherpetic neuralgia from previous shingles flare, on the left T5 or T6 dermatome. States he previously tried multiple different medications, and none of them worked. Incentive spirometer is at bedside. Achieves approximately 1500. D5W/1 half-normal saline infusing at 50 mL/h. Appears stable and progressing well. Progress note dated January 01, 2024. This is a 63-year-old male postop day #2, status post right lower lobectomy. The patient has a history of adenocarcinoma. Unfortunately, because of media stinal bleeding, he had to go back to the operating room. I did speak to Dr. Zuluaga about this patient's case. The patient is currently seen today in room 254. The patient is on room air. He is getting D5 with half-normal saline at 50 cc an hour. He did develop atrial fibrillation, and for that reason was placed on amiodarone at 0.5 mg/min. Other than pain, the patient is doing well without complaints. White count 10.1, hemoglobin 9.3, hematocrit 28.3, platelet count normal. Sodium 135, potassium 3.6, chlorides 103, CO2 26, BUN 8, creatinine 0.59. Glucose is 160. Chest x-ray shows 2 right-sided chest tubes, and right lower lobe infiltrate or atelectasis. Progress note dated January 02, 2024. 63-year-old male, seen in room 254. He is postoperative day #3, status post right lower lobectomy. The patient has a history of adenocarcinoma. The patient is doing relatively well. He sitting in the chair next to the hospital bed. He is currently on room air. He is not receiving any IV fluids. He had an uneventful night. He does have a leak from the right sided chest tube, with either deep breathing, or coughing. Labs include a white count 11.5, hemoglobin 9.8, hematocrit 28.6, and a normal platelet count. Sodium 133, potassium 4.1, chlorides 104, CO2 23, BUN 17, creatinine 0.77. Glucose is 109. Calcium is 9.2. Chest x-ray shows a minimal pneumothorax at the right costophrenic angle, small right-sided pleural effusion, and atelectasis at the right lung base, as well as chest tube. Progress note dated January 03, 2024. 63-year-old male seen in room 254. He is postoperative day #4, status post right lower lobectomy. The patient has a history of adenocarcinoma. He is doing relatively well. He still has an air leak from his chest tube. He is on room air. Is not receiving any IV fluids. White count 6.9, hemoglobin 9.5, hematocrit 27.7, platelet count is normal. Sodium 134, potassium 3.9, chlorides 105, CO2 24, BUN 15, creatinine 0.77. Calcium is 9.0. Chest x-ray shows a right-sided chest tube, but no acute process. On 01/04/2024, patient is being seen for a follow-up. The patient is doing extremely well and the patient is currently on room air oxygen. The patient is postop day #5 and the patient underwent a right lower lobectomy. Chest tubes were removed. The patient's chest x-ray from today shows some volume loss in the right lung and elevation of the right hemidiaphragm along with some limited right basilar atelectasis. Using incentive spirometer. Hemodynamically stable. Afebrile. Communicating and ambulating. The white cell count of 9 with a hemoglobin of 0.8 and a platelet count of 261. BUN is 50 with a creatinine of 0.8 and sodium levels at 136. The patient has no other complaints otherwise. Remains on aspirin. Remains on amiodarone 400 mg p.o. twice a day his current cardiac rhythm is sinus. He remains on DuoNeb options. Rest of the respiratory medications remain unchanged. Objective - Vital Signs Vital signs: Vital Signs Temp 98.3 F 01/04/24 03:44 Pulse 90 01/04/24 08:19 Resp 14 01/04/24 03:44 BP 155/80 01/04/24 03:44 Pulse Ox 92 L 01/04/24 03:44 FiO2 Intake & Output 01/03/24 01/04/24 01/04/24 18:59 06:59 18:59 Output Total 960 Balance -960 Weight 83.3 kg 83 kg Output: Chest Tube Drainage 60 Chest Tube Right Lateral 60 Chest Urine 900 Other: Voiding Method Toilet Toilet ABP, PAP, CO, CI - Last Documented Arterial Blood Pressure 150/49 - Exam No acute distress, oriented 3. Currently on room air. No respiratory distress. HEENT examination is grossly unremarkable. Mucous membranes are moist. No oral lesions. Neck supple. Full range of motion. No adenopathy thyromegaly or neck vein distention. Cardiovascular examination reveals regular rhythm rate. S1-S2 normal. No S3 or S4. No discernible murmur noted. Lungs reveal scattered bilateral rhonchi. No wheezes or crackles. Breath sounds equal. Chest tubes have been removed, and there is some diminished breath sound right lung base. Surgical wound site is dry clean and intact Abdomen soft bowel sounds are heard. No masses or tenderness. Extremities are intact. No cyanosis clubbing or edema. Skin is without rash or lesion. Neurologic examination is brief but nonfocal. - Labs CBC & Chem 7: 01/04/24 05:37 01/04/24 05:37 Labs: Abnormal Lab Results - Last 24 Hours (Table) 01/04/24 01/04/24 Range/Units 05:37 05:37 RBC 2.84 L (4.30-5.90) m/uL Hgb 9.8 L (13.0-17.5) gm/dL Hct 29.3 L (39.0-53.0) % MCV 103.0 H (80.0-100.0) fL Sodium 136 L (137-145) mmol/L Glucose 142 H (74-99) mg/dL Assessment and Plan Plan: Status postoperative day #5 following robotic assisted thorascopic right lower lobectomy with mediastinal lymph node dissection. Postop day #4, status post mediastinal exploration, for bleeding. Hemoglobin is stable and the patient is hemodynamically stable Acute hypoxemic respiratory failure, currently on room air. Right lower lobe pulmonary nodule, Dr. Klein did take the patient for robotic assisted bronchoscopy with transbronchial biopsies on 08/27/2023. Pathology consistent for moderately differentiated pulmonary adenocarcinoma. EBUS nondiagnostic for metastasis. Findings compatible with new primary lung cancer. History of squamous cell lung carcinoma, originally diagnosed back in 2019, status post left lower lobectomy. History of herpes zoster and postherpetic neuralgia. History of hypertension. History of hyperlipidemia. Former tobacco dependence. Plan: Clinically and hemodynamically stable Patient is on room air oxygen Patient is ambulating Patient is using the incentive spirometer All of the chest tubes were removed No issues with pain Chest x-ray was noted Will transfer the patient out of the intensive care unit.
== END 2024-01-04 14:00 | disposition home or self-care (01) | DRG 163 ==
LOC: 2ORMAIN 06:17 → 3SCARD 14:49 → 2SICU 12-31 08:53
PROVIDERS: ADMIT Thoracic Surgery (Cardiothoracic Vascular Surgery); ATTEND Thoracic Surgery (Cardiothoracic Vascular Surgery)
PROC: 07B73ZX Excision of Thorax Lymphatic, Percutaneous Approach, Diagnostic (ICD-10-PCS; 2023-12-30)
PROC: 8E0W4CZ Robotic Assisted Procedure of Trunk Region, Percutaneous Endoscopic Approach (ICD-10-PCS; 2023-12-30)
PROC: 0BTF4ZZ Resection of Right Lower Lung Lobe, Percutaneous Endoscopic Approach (ICD-10-PCS; principal; 2023-12-30 08:30)
DX: C34.31 Malignant neoplasm of lower lobe, right bronchus or lung (principal); J96.01 Acute respiratory failure with hypoxia; J94.2 Hemothorax; B02.29 Other postherpetic nervous system involvement; J98.11 Atelectasis; J93.82 Other air leak; I48.0 Paroxysmal atrial fibrillation; I25.2 Old myocardial infarction; J44.9 Chronic obstructive pulmonary disease, unspecified; I10 Essential (primary) hypertension; E78.5 Hyperlipidemia, unspecified; Z85.118 Personal history of other malignant neoplasm of bronchus and lung; Z79.01 Long term (current) use of anticoagulants; Z79.82 Long term (current) use of aspirin; Z79.899 Other long term (current) drug therapy; Z87.891 Personal history of nicotine dependence; Z86.19 Personal history of other infectious and parasitic diseases; Z92.3 Personal history of irradiation; Z95.5 Presence of coronary angioplasty implant and graft
CPT/HCPCS: 64999; 71045; 71046; 80048; 82805; 83735; 84443; 85025; 85027; 86850; 86900; 86901; 86920; 88305; 88309; 88312; 88313; 88341; 94640; 94760

== ENCOUNTER → 2024-02-29 | Outpatient (CLI) | payer MEDICARE, BC ==
[~2024-02-29] MED LIST changes: -HYDROmorphone 0.5 MG/0.5 ML SYRINGE IVP PRN; -LACTATED RINGERS 1,000 ML IV SCH; -LIDOCAINE 1% (10MG/ML) FOR IV START INTRADERMA PRN; -MIDAZOLAM 2 MG/2 ML VIAL IV PRN; +SODIUM CHLORIDE 0.9% 250 ML in EMPTY BAG 1 BAG IV PRN
[2024-02-29 12:58] VITALS: BP 145/86; PULSE 80; RESP 16; TEMP 98.3
[2024-02-29] MEDS: SODIUM CHLORIDE 0.9% 500 ML 500 ML in EMPTY BAG 1 BAG IV PRN (12:59)
[2024-02-29] MEDS: SODIUM FERRIC GLUCONAT-SUCROSE 62.5 MG in SODIUM CHLORIDE 0.9% 100 ML IVPB NR (13:00)
== END ==
LOC: PROCWHC3 12:26
PROVIDERS: ATTEND Family Medicine
DX: D64.9 Anemia, unspecified (principal)
CPT/HCPCS: 96365; J2916

== ENCOUNTER → 2024-06-06 | Outpatient (CLI) | payer MEDICARE, BC ==
[2024-06-06 12:59] LABS: African American GFR (CKD) >90 (>60 ml/min/1.73 sqM); Blood Urea Nitrogen 15 mg/dL (9-20); Non-African American GFR(CKD) >90 (>60 ml/min/1.73 sqM)
--- NOTE | 2024-06-06 15:02 | CT ---
EXAMINATION TYPE: CT abdomen pelvis w con CT DLP: 881 mGycm, Automated exposure control for dose reduction was used. DATE OF EXAM: 06/06/2024 2:23 PM COMPARISON: PET CT 11/12/2023, 07/30/2023, 01/23/2023 CLINICAL INDICATION:Male, 64 years old with history of R10.9 UNSPECIFIED ABDOMINAL PAIN; UPPER ABD PA IN TECHNIQUE: Standard CT of the abdomen and pelvis following the administration of 100 cc of Isovue 3 00 IV contrast material and oral contrast. Coronal and sagittal reformats were performed. FINDINGS: LOWER CHEST: Centrilobular emphysematous changes. Partial visualization of postsurgical changes withi n the right inferior pulmonary hilum. Elevation of the right hemidiaphragm. Coronary artery calcifica tions. Trace right pleural effusion. ABDOMEN LIVER: Unremarkable GALLBLADDER AND BILE DUCTS: Unremarkable. PANCREAS: Unremarkable. SPLEEN: Unremarkable. ADRENAL GLANDS: Unremarkable. KIDNEYS AND URETERS: No evidence of hydronephrosis. No left renal calculi. The kidneys enhance symmet rically. Nonobstructive punctate 2 mm right renal calculus. Bilateral extrarenal pelvises. PELVIS BLADDER: Unremarkable REPRODUCTIVE: Prostate is enlarged in size measuring 5.1 cm in transverse dimension. ABDOMEN & PELVIS STOMACH AND BOWEL: Surgical changes of the GE junction.The appendix is within normal limits. Enteric contrast reaches the mid small bowel. No focal bowel wall thickening or surrounding inflammatory ayala ges. Distal colonic diverticulosis without evidence for acute diverticulitis. No evidence of bowel ob struction. PERITONEUM: No evidence of pneumoperitoneum or free fluid. VASCULATURE: Moderate atherosclerotic calcifications are present throughout the abdominal aorta and i ts branches. Infrarenal fusiform abdominal aortic aneurysm measuring up to 3.0 cm (series 3, image 50 ). At least mild to moderate stenosis of the origin of the right common iliac artery. MUSCULOSKELETAL: No acute osseous abnormalities. Grade 1 anterolisthesis of L5 and S1 with bilateral pars defects. Degenerative disc disease at this level. LYMPH NODES: No evidence for lymphadenopathy. SOFT TISSUE/ABDOMINAL WALL: Unremarkable IMPRESSION: 1. No acute abdominal/pelvic process. No CT evidence for metastatic disease. 2. Postsurgical changes of the visualized right lower lung with trace right pleural effusion. 3. Abdominal aortic aneurysm measuring up to 3.0 cm. 4. Colonic diverticulosis without evidence for acute diverticulitis. 5. Punctate nonobstructive right renal calculus. [facility], , 06/06/2024 3:00 PM
== END | disposition home or self-care (01) ==
LOC: RADCTMAIN 12:22
PROVIDERS: ATTEND Family Medicine
DX: K57.30 Diverticulosis of large intestine without perforation or abscess without bleeding (principal); N20.0 Calculus of kidney; J90 Pleural effusion, not elsewhere classified; I71.40 Abdominal aortic aneurysm, without rupture, unspecified
CPT/HCPCS: 82565; 84520; 74177; 36415; Q9967

== ENCOUNTER → 2024-07-11 | Outpatient (CLI) | payer MEDICARE, BC ==
[2024-07-11 11:17] LABS: African American GFR (CKD) >90 (>60 ml/min/1.73 sqM); Blood Urea Nitrogen 15 mg/dL (9-20); Non-African American GFR(CKD) >90 (>60 ml/min/1.73 sqM)
--- NOTE | 2024-07-11 12:08 | CT ---
EXAMINATION TYPE: CT chest w con DATE OF EXAM: 07/11/2024 11:37 AM COMPARISON: 06/27/2023, 11/12/2023. CLINICAL INDICATION: Male, 64 years old with history of C34.90 LUNG CA; PHH, f/u lung ca TECHNIQUE: Multiple axial images were obtained through the chest. Sagittal and coronal reformats were created for review. MIP was performed on a separate workstation. Contrast used:100 ml mL of Isovue 300 with IV Contrast (None if empty) Oral contrast used: (None if empty) CT DLP: 284.6 mGycm, Automated exposure control for dose reduction was used. FINDINGS: LUNGS/ PLEURA: No postsurgical changes to the right lung. Mild to moderate centrilobular emphysema ch anges throughout the lungs. Stable nodule in the subpleural region of the anterior right middle lobe measuring 10 x 6 mm and has a wedge shape on sagittal imaging. AIRWAY: Patent and unremarkable. HEART: Size within normal limits. Severe coronary artery calcifications present. Aortic valve calcifi cations are mild. MEDIASTINUM: No gross evidence of adenopathy. There remains a right pulmonary hilum 18 mm in short ax is lymph node which may have had mild uptake on prior PET/CT on 11/12/2023. Surgical clips are on the l eft pulmonary hilum and aorta. No enlarged left pulmonary hilum lymph nodes. Lymph nodes within the m ediastinum are within normal limits for size. VASCULATURE: No aortic aneurysm. MUSCULOSKELETAL: No acute osseous abnormalities SOFT TISSUES/LYMPH NODES: Unremarkable. LOWER NECK: No significant findings. UPPER ABDOMEN: No significant findings. IMPRESSION: 1. Postsurgical changes. There remains a right pulmonary hilum lymph node which is enlarged up to 18 mm. This may have had mild uptake on 11/12/2023. Mediastinal prominent lymph nodes are now enlarged fo r size. Follow-up PET/CT may be of benefit to evaluate metabolic activity. 2. Right middle lobe subpleural nodule with wedge-shaped possibly atelectasis. Attention on follow-u p imaging. 3. Severe coronary artery atherosclerosis. Follow up recommendations for incidental pulmonary nodules, if there are any, are per [employer] [employer] or [place] [employer]. https://radiopaedia.org/articles/gahukwxcdf-gipfibi-kewcjswum-xumzxy-zqhzsnkqkewtiuk-[email or web address]?lang=us [facility], , 07/11/2024 12:06 PM
== END | disposition home or self-care (01) ==
LOC: RADCTMAIN 10:20
PROVIDERS: ATTEND Internal Medicine Critical Care Medicine
DX: I25.10 Atherosclerotic heart disease of native coronary artery without angina pectoris (principal); R91.1 Solitary pulmonary nodule; R59.0 Localized enlarged lymph nodes
CPT/HCPCS: 82565; 84520; 71260; 36415; Q9967

== ENCOUNTER → 2024-08-29 | Outpatient (CLI) | payer MEDICARE, BC ==
[2024-08-29 16:54] LABS: Basophils # (A) 0.06 X 10*3/uL (0.00-0.10); Basophils % (A) 0.8 %; Eosinophils # (A) 0.18 X 10*3/uL (0.04-0.35); Eosinophils % (A) 2.5 %; HGB 14.5 g/dL (13.0-17.0); Lymphocytes % (A) 26.3 %; MCH 30.5 pg (27.0-32.0); MCHC 32.2 g/dL (32.0-37.0); MCV 94.5 FL (80.0-97.0); Mean Platelet Volume 10.6 FL (9.5-12.2); Monocytes # (A) 0.72 X 10*3/uL (0.20-1.00); NRBC Per 100 WBC 0 X 10*3/uL (0.00-0.01); Neutrophils # (A) 4.35 X 10*3/uL (1.80-7.70); Neutrophils % (A) 60.1 %; Platelet Count 243 X 10*3/uL (140-440); RBC 4.76 X 10*6/uL (4.40-5.60); RDW 13.3 % (11.5-14.5); WBC 7.23 X 10*3/uL (4.50-10.00)
[2024-08-29 17:00] LABS: ALT 14 U/L (10-49); AST 18 U/L (14-35); Albumin 4.5 g/dL (3.8-4.9); Albumin/Globulin Ratio 1.61 Ratio (1.60-3.17); Alkaline Phosphatase 90 U/L (41-126); BUN/Creat Ratio 13.44 Ratio (12.00-20.00); Blood Urea Nitrogen 12.1 mg/dL (9.0-27.0); Calcium 9.9 mg/dL (8.7-10.3); Carbon Dioxide 23.8 mmol/L (21.6-31.8); Chloride 106 mmol/L (96-109); Chol/HDL Ratio 3.11 Ratio; Creatine Kinase 82 U/L (35-257); Globulin 2.8 g/dL (1.6-3.3); Glucose 116 mg/dL (70-110); LDL Cholesterol,Calculated 74.7 mg/dL (0.0-131.0); Potassium 4.9 mmol/L (3.5-5.5); Prostate Specific Antigen 0.68 ng/mL (0.000-4.500); Sodium 141 mmol/L (135-145); Total Bilirubin 0.4 mg/dL (0.3-1.2); Total Protein 7.3 g/dL (6.2-8.2); VLDL Calculation 12.24 mg/dL (5.00-40.00)
== END | disposition home or self-care (01) ==
LOC: LABWHC1 11:04
PROVIDERS: ATTEND Family Medicine
DX: Z00.00 Encounter for general adult medical examination without abnormal findings (principal); Z12.5 Encounter for screening for malignant neoplasm of prostate; Z13.1 Encounter for screening for diabetes mellitus; E78.00 Pure hypercholesterolemia, unspecified
CPT/HCPCS: 36415; 80053; 80061; 82550; 83036; 84153; 85025

== ENCOUNTER → 2024-10-11 | Outpatient (CLI) | payer MEDICARE, BC ==
[2024-10-11 12:26] LABS: African American GFR (CKD) >90 (>60 ml/min/1.73 sqM); Blood Urea Nitrogen 13 mg/dL (9-20); Non-African American GFR(CKD) >90 (>60 ml/min/1.73 sqM)
--- NOTE | 2024-10-11 13:23 | CT ---
CT chest with contrast. HISTORY: Lung cancer follow-up COMPARISON: 07/11/2024 TECHNIQUE: Multiple axial images were obtained through the thorax following the uneventful administra tion of nonionic IV contrast material. FINDINGS: There are postsurgical changes in the right middle lobe and posterior lower lobe as well. There are m oderate emphysematous changes. There are 2 or 3 scattered stable micronodules. There is no new or suspicious lung mass or nodule. There is no airspace consolidation or abnormal interstitial density. There is no pleural effusion, pleural thickening or pneumothorax. The great vessels the chest are normal. There is a stable 2.4 cm right hilar enlarged lymph node. There is a second stable 12 mm short axis r ight hilar lymph node. There are borderline and stable mediastinal lymph nodes. Limited scanning of the upper abdomen reveals no gross abnormality.. No focal osseous lesions are seen. IMPRESSION: 1. Postoperative changes involving the right upper lobe and right lower lobe. 2. 2 or 3 stable scattered micronodules. 3. Stable enlarged right hilar lymph nodes and borderline mediastinal lymph nodes. 4. No significant interval change compared to the prior study. [facility], , 10/11/2024 1:21 PM
== END | disposition home or self-care (01) ==
LOC: RADCTMAIN 11:14
PROVIDERS: ATTEND Internal Medicine Critical Care Medicine
DX: C34.90 Malignant neoplasm of unspecified part of unspecified bronchus or lung (principal); R59.0 Localized enlarged lymph nodes; Z98.890 Other specified postprocedural states
CPT/HCPCS: 82565; 84520; 71260; 36415; Q9967

== ENCOUNTER 2024-10-27 10:34 | Day surgery (SDC) | payer MEDICARE, BC ==
[2024-10-26 08:52] VITALS: BMI 21.7
[~2024-10-27 10:34] MED LIST changes: +LACTATED RINGERS 1,000 ML IV SCH; -SODIUM CHLORIDE 0.9% 250 ML in EMPTY BAG 1 BAG IV PRN
[2024-10-27 11:22] LABS: Glucose,Whole Blood 103 mg/dL (70-110)
[2024-10-27] MEDS: IV FLUID CONTINUATION 1,000 ML IV ONE (11:22)
[2024-10-27] MEDS: LACTATED RINGERS 1,000 ML IV SCH (11:27)
[2024-10-27] MEDS: DEXAMETHASONE SOD PHOSPHATE 4 MG/ML 1 ML VIAL IV ONE (11:27)
[2024-10-27] MEDS: ONDANSETRON 4 MG/2 ML VIAL IVP ONE (11:28)
[2024-10-27] MEDS ORDERED: SUCCINYLCHOLINE CHLORIDE 200 MG/10 ML VIAL IV ONE (12:25)
[2024-10-27] MEDS ORDERED: PROPOFOL 10 MG/ML 20 ML VIAL IV ONE (12:25)
[2024-10-27] MEDS ORDERED: fentaNYL (PF) 50 MCG/ML 2 ML AMP ONE (12:25)
[2024-10-27] MEDS ORDERED: LIDOCAINE 1% INJ 10MG/ML (20 ML MDV) ONE (12:25)
[2024-10-27] MEDS ORDERED: MIDAZOLAM 2 MG/2 ML VIAL ONE (12:25)
[2024-10-27 13:34] VITALS: TEMP 97.3
--- NOTE | 2024-10-27 13:36 | P.PCN ---
Date of Procedure: 10/27/24 Preoperative Diagnosis: mediastinal adenopathy Postoperative Diagnosis: Station 10R lymph node measuring 13 x 16 mm in size Station 11R lymph node measuring 9 x 10 mm in size. Procedure(s) Performed: Flexible bronchoscopy and airway inspection endobronchial ultrasound EBUS guided transbronchial needle aspirate of station 10R and 11R lymph nodes. Anesthesia: MAC Surgeon: Heidi Klein Estimated Blood Loss (ml): 0 Pathology: other Condition: stable Disposition: same day Operative Findings: 64-year-old male patient with abnormal CAT scan showed right hilar lymphadenopathy. The patient is known to have stage I pulm adenocarcinoma with a previous robotic assisted thoracoscopic right lower lobectomy and mediastinal lymph node dissection and December 2023. The patient also has a history of squamous cell carcinoma of the left lung diagnosed back in 2018, status post left lower lobectomy. The procedure was done in the endoscopy suite. A consent was signed. A timeout was obtained. Following that, the patient was intubated and placed on the mechanical ventilator in the usual fashion and intubation was done by the anesthesia team. Following intubation, the flexible bronchoscope was introduced into the orotracheal tube and was advanced into the distal trachea. Examination of the tracheobronchial tree was done. Haley was within normal limits. Distal trachea was within normal limits. Bilateral mainstem bronchi were patent and within normal limits. Right upper lobe bronchus was trifurcated. Following that, the bronchoscope was moved to the bronchus intermedius. The stump of the right lower lobe was noted and it was healthy and within normal limits. Right middle lobe bronchus was patent. Examination of the left side included the left mainstem bronchus and the left upper lobe bronchus. The left lower lobe bronchus stump was within normal limits. The bronchoscope was removed and endobronchial ultrasound was introduced. Careful examination of the mediastinal station showed the 16 x 13mm station 10R lymph node and another 9 x 10 mm station 11R lymph node. Using a 22-gauge needle, transbronchial needle aspirate of station 10R was done, a total of 5 passes and transbronchial needle aspirate of station 11R was done a total of 4 passes. The transbronchial needle aspirate was completed successfully. No bleeding. The rest of the mediastinal tissues showed no pathologic lymphadenopathy. The endobronchial ultrasound was removed. The flexible bronchoscope was introduced and therapeutic airway suctioning was done. Airways were cleared from any residual respiratory secretions. The bronchoscope was removed and the patient was extubated and transferred to recovery in stable condition.
[2024-10-27 14:22] VITALS: RESP 18
[2024-10-27 14:31] VITALS: BP 118/77; PULSE 63
== END 2024-10-27 14:47 | disposition home or self-care (01) ==
LOC: ORWHC2ENDO 10:34
PROVIDERS: ATTEND Internal Medicine Critical Care Medicine
DX: C34.91 Malignant neoplasm of unspecified part of right bronchus or lung (principal); C34.92 Malignant neoplasm of unspecified part of left bronchus or lung; J44.1 Chronic obstructive pulmonary disease with (acute) exacerbation; I25.10 Atherosclerotic heart disease of native coronary artery without angina pectoris; K21.9 Gastro-esophageal reflux disease without esophagitis; E78.5 Hyperlipidemia, unspecified; I10 Essential (primary) hypertension; B02.9 Zoster without complications; F17.200 Nicotine dependence, unspecified, uncomplicated; Z88.8 Allergy status to other drugs, medicaments and biological substances; Z79.02 Long term (current) use of antithrombotics/antiplatelets; Z79.82 Long term (current) use of aspirin; Z79.899 Other long term (current) drug therapy
CPT/HCPCS: 88305; 31652; J2250; J0330; J1100; J2405; J2003; J3010; J2704; 31633

== ENCOUNTER 2024-11-11 09:04 | Day surgery (SDC) | payer MEDICARE, BC ==
[2024-11-08 14:39] VITALS: BMI 20.9
[2024-11-11] MEDS ORDERED: LIDOCAINE 1% (10MG/ML) FOR IV START INTRADERMA PRN (09:14)
[2024-11-11] MEDS: IV FLUID CONTINUATION 1,000 ML IV ONE (09:19)
[2024-11-11 09:30] VITALS: RESP 16; TEMP 97.1
[2024-11-11] MEDS: LACTATED RINGERS 1,000 ML IV SCH (09:46)
[2024-11-11] MEDS ORDERED: MIDAZOLAM 2 MG/2 ML VIAL ONE (10:30)
[2024-11-11] MEDS ORDERED: PROPOFOL 10 MG/ML 20 ML VIAL IV ONE (10:30)
[2024-11-11] MEDS ORDERED: LIDOCAINE 1% INJ 10MG/ML (20 ML MDV) ONE (10:30)
[2024-11-11] MEDS ORDERED: fentaNYL (PF) 50 MCG/ML 2 ML AMP ONE (10:30)
--- NOTE | 2024-11-11 11:00 | P.PCN ---
Date of Procedure: 11/11/24 Procedure(s) Performed: brief history: Patient is a pleasant 64-year-old white male scheduled for an elective upper endoscopy as well as colonoscopy as a part of evaluation of GERD/abdominal pain/change in bowel habits with chronic diarrhea for the last several months duration Procedure performed: Esophagogastroduodenoscopy with biopsy Colonoscopy with biopsy Preoperative diagnosis: GERD/abdominal pain Change in bowel habits/chronic diarrhea Anesthesia: [facility] [place] Procedure: After informed consent was obtained from the patient was brought into the endoscopy unit and IV sedation was administered by anesthesia under continuous monitoring. Initially upper endoscopy was done. The Olympus GF 160 video endoscope was inserted inserted into the mouth and esophagus intubated without any difficulty and was gradually advanced into the stomach and duodenum and carefully examined. The bulb and second part of the duodenum appeared normal. The scope was then withdrawn into the stomach adequately insufflated with air and upon careful examination the antrum had patchy areas of erythema consistent with gastritis and biopsies were done from this area. Mucosa of the body, cardia and fundus appeared normal. The scope was then withdrawn into the esophagus. The GE junction was located at 40 cm to the incisors. It appeared regular with no erythema erosions or ulcerations. Rest of the esophagus appeared normal. Patient tolerated the procedure well. At this time the patient continued to remain sedation. Initial digital rectal examination was normal. Olympus CF 160 video colonoscope was then inserted into the rectum and gradually advanced to the cecum without any difficulty. Careful examination was performed as the scope was gradually being withdrawn. The prep was excellent. The cecum, appeared normal. In the ascending colon there was a 3 mm sessile polyp that was removed by cold biopsy. Ascending colon, transverse colon, descending colon, sigmoid colon and rectum appeared normal. Random biopsies were done from the ascending and descending colon to evaluate for microscopic/collagenous colitis. Retroflexion was performed in the rectum and no lesions were noted. Patient tolerated the procedure well. Impression: 1. Upper endoscopy revealed mild antral gastritis but no active esophagitis or peptic ulcer 2. Colonoscopy revealed 3 mm descending colon polyp status post cold biopsy and the rest of the colon appeared normal Recommendations: Findings of this examination were discussed with the patient as well as his family. He was advised to follow-up with the biopsy results. Recommended repeat screening colonoscopy in 10 years. Follow-up in the office in 2 to 3 weeks.
[2024-11-11 11:26] VITALS: BP 125/70; PULSE 65
== END 2024-11-11 11:53 | disposition home or self-care (01) ==
LOC: ORWHC2ENDO 09:04
PROVIDERS: ATTEND Internal Medicine Gastroenterology
DX: D12.2 Benign neoplasm of ascending colon (principal); D12.4 Benign neoplasm of descending colon; K29.50 Unspecified chronic gastritis without bleeding; K21.9 Gastro-esophageal reflux disease without esophagitis; K52.9 Noninfective gastroenteritis and colitis, unspecified; I25.2 Old myocardial infarction; I10 Essential (primary) hypertension; E78.5 Hyperlipidemia, unspecified; Z85.118 Personal history of other malignant neoplasm of bronchus and lung; Z95.5 Presence of coronary angioplasty implant and graft; Z88.6 Allergy status to analgesic agent; Z88.5 Allergy status to narcotic agent; Z79.899 Other long term (current) drug therapy
CPT/HCPCS: 43239; 45380; 88305